=== PATIENT | female | born 1970 | race Caucasian/White ===

== ENCOUNTER 2017-04-01 06:31 | Day surgery (SDC) | payer OTHER ==
[~2017-04-01] VITALS: Ht 172.7 cm; Wt 118.2 kg
[2017-04-01 06:55] VITALS: BP 149/91; PULSE 55; RESP 20; TEMP 98; O2SAT 99
[2017-04-01] MEDS ORDERED: CYCL1TAB29 PO (07:14)
[2017-04-01] MEDS ORDERED: HYDR-3288 PO (07:14)
[2017-04-01] MEDS ORDERED: LIDOCAINE 1%/EPINEPHrine 1:100,000 SOLN 20 ML VIAL ONE (07:52)
[2017-04-01] MEDS ORDERED: SODIUM BICARBONATE 8.4% INJ 50 ML ONE (07:53)
[2017-04-01] MEDS ORDERED: MIDAZOLAM HCL 5 MG/5 ML VIAL ONE (07:58)
[2017-04-01] MEDS ORDERED: fentaNYL CITRATE 250 MCG/5 ML AMP ONE (07:58)
[2017-04-01 09:10] VITALS: BP 101/61; PULSE 59; RESP 20; TEMP 97.6; O2SAT 99
[2017-04-01 09:25] VITALS: BP 109/65; PULSE 64; RESP 16; O2SAT 99
[2017-04-01] MEDS ORDERED: oxyCODONE/ACETAMINOPHEN 5 MG/325 MG TAB PO PRN (09:30)
[2017-04-01 09:45] VITALS: BP 129/78; PULSE 60; RESP 16; O2SAT 99
[2017-04-01 10:15] VITALS: BP 129/75; PULSE 68; RESP 16; O2SAT 99
[2017-04-01 11:00] VITALS: BP 110/59; PULSE 68
--- NOTE | 2017-04-01 16:31 | RADRPT ---
EXAM DATE/TIME: 04/01/2017 08:20 [facility] COMPARISON: No previous studies available for comparison. INDICATIONS : Pelvic mass. SEDATION TIME: 30 minutes BIOPSY SITE: pelvis MEDICATION(S): 1.) 2 mg midazolam (Versed) IV 2.) 100 mcg fentanyl (Sublimaze) IV DEVICE(S): 1.) 18 gauge Lu blunt needle 10cm 2.) 20 gauge Temno core biopsy needle 20cm MEDICAL HISTORY : Endometriosis SURGICAL HISTORY : Cholecystectomy Hysterectomy. ENCOUNTER: Initial ACUITY: 1 day PAIN SCORE: 0/10 LOCATION: pelvis A total of four core specimen(s) were obtained and sent to the laboratory for pathologic evaluation. PROCEDURE: 1. CT guided pelvic biopsy. 2. Conscious sedation with continuous EKG and oximetry monitoring. Prior to the procedure informed consent was obtained. Any appropriate prior imaging studies were rev iewed. Using automated exposure control and adjustment of the mA and/or kV according to patient size, radiat ion dose was kept as low as reasonably achievable to obtain optimal diagnostic quality images. The site was prepped in a sterile fashion. Full sterile technique was used, including cap, mask, yefri rile gloves and gown and a large sterile sheet. Hand hygiene and 2% chlorhexidine and/or betadine/al cohol prep was utilized per protocol for cutaneous antisepsis. The skin and subcutaneous tissues wer e infiltrated with local anesthetic solution. With CT guidance the pelvic mass was targeted and localized. Biopsy was performed using the prescribe d needle as above. Also approximately 100 cc of yellow fluid aspirated. Adequate hemostasis was obtai rajan with compression at the puncture site. Follow-up CT scan reveals no hemorrhage. The patient tolerated the procedure well and there were no complications. The patient was returned to the Radiology Outpatient Unit in stable condition. CONCLUSION: Uncomplicated CT guided biopsy and aspiration of cystic and solid pelvic mass. Alfred Alcantara MD on April 01, 2017 at 16:27 Board Certified Radiologist. This report was verified electronically.
== END 2017-04-01 11:30 | disposition home or self-care (01) ==
LOC: HRAD 06:31 → HRIP 06:31 → HRAD 11:30
PROVIDERS: ATTEND Obstetrics & Gynecology Gynecologic Oncology
DX: R19.00 Intra-abdominal and pelvic swelling, mass and lump, unspecified site (principal); N80.9 Endometriosis, unspecified; Z90.710 Acquired absence of both cervix and uterus
CPT/HCPCS: 49180; 77012; 88307; 99152; 99153; J2250; J3010; 88112; 88305

== ENCOUNTER 2017-04-23 06:02 | Day surgery (SDC) | payer OTHER ==
[~2017-04-23] VITALS: Ht 172.7 cm; Wt 119.5 kg
[~2017-04-23 06:02] MED LIST: CYCL1TAB29 PO; HYDR-3288 PO
[2017-04-23 06:40] VITALS: BP 154/85; PULSE 66; RESP 20; TEMP 98.3; O2SAT 97
[2017-04-23] MEDS ORDERED: CHLORHEXIDINE GLUCONATE 2 % 1 PACK (2 CLOTHS) TOPICAL SCH (07:00)
[2017-04-23] MEDS ORDERED: SODIUM CHLORIDE 0.9% 1000 ML IV SCH (07:00)
[2017-04-23] MEDS ORDERED: VANCOMYCIN 1000 MG/NS 250 ML - implanted port/tunneled catheter IV SCH ×2 (07:00)
[2017-04-23] MEDS ORDERED: POVIDONE IODINE 5% (ANTISEPSIS KIT) 4 APPLICATIONS EACH NARE SCH (07:00)
[2017-04-23] MEDS ORDERED: ceFAZolin 2 GM PREMIX 50 ML - implanted port/tunneled catheter insertion IV SCH (07:00)
[2017-04-23] MEDS ORDERED: fentaNYL CITRATE 250 MCG/5 ML AMP ONE (07:41)
[2017-04-23] MEDS ORDERED: MIDAZOLAM HCL 5 MG/5 ML VIAL ONE (07:41)
[2017-04-23] MEDS ORDERED: LIDOCAINE 1%/EPINEPHrine 1:100,000 SOLN 20 ML VIAL ONE ×2 (08:08→08:09)
--- NOTE | 2017-04-23 08:43 | PD.RAD ---
Post Procedure Progress Note Pre Procedure Diagnosis: (1) Pelvic mass in female Post Procedure Diagnosis: (1) Pelvic mass in female Procedure Date: Apr 23, 2017 Supervising Radiologist: Henok Orozco Proceduralist/Assist: Nacho Ramírez, RT(R), Alexander Powers RT(R)() Estimated blood loss: 5 ml Anesthesia: Conscious Sedation Plan of Activity Patient to Unit: ROPU Patient Condition: Good Additional Comments: patent IJ. Port tip at ACJ. See PACS Report for procedural detail/treatment Henok Orozco MD Apr 23, 2017 08:43
[2017-04-23] MEDS ORDERED: SODIUM CHLORIDE 0.9% FLUSH 10 ML FLUSH IVF PRN (08:45)
[2017-04-23 08:50] VITALS: BP 125/70; PULSE 71; RESP 20; TEMP 98.1; O2SAT 93
[2017-04-23 09:05] VITALS: BP 125/72; PULSE 72; RESP 18; O2SAT 95
[2017-04-23 09:35] VITALS: BP 128/77; PULSE 82; RESP 16; O2SAT 95
--- NOTE | 2017-04-23 09:35 | RADRPT ---
EXAM DATE/TIME: 04/23/2017 08:19 [facility] COMPARISON: No previous studies available for comparison. INDICATIONS : Patient presents with a pelvic mass in need of port placement for chemotherapy treatment. MEDICAL HISTORY : Anxiety Adenocarcinoma pelvic mass SURGICAL HISTORY : Antonette Hysterectomy Gastric bypass ENCOUNTER: Initial ACUITY: 4-6 months PAIN SCORE: 0/10 LOCATION: N/A FLUORO TIME: 0.3 minutes IMAGE SERIES: 0 SEDATION TIME: 30 minutes ACCESS: Right internal jugular vein SEDATION: 1.) 3 mg midazolam (Versed) IV 2.) 250 mcg fentanyl (Sublimaze) IV Prophylactic antibiotics were administered with appropriate pre-procedure timing. Vancomycin within 2 hours of procedure, Ancef (or alternative) within 1 hour of procedure. DEVICE: 1. 8 English single lumen Bard Power Port PROCEDURE : 1. Continuous pulse oximetry and EKG monitoring. 2. Intravenous conscious sedation. 3. Ultrasound guidance for venous access. 4. Fluoroscopic guided implantable central venous port placement. The patient was placed supine. The neck was prepped in sterile fashion. Full sterile technique was u sed, including cap, mask, sterile gloves and gown, and a large sterile sheet. Hand hygiene and 2% ch lorhexidine Betadine was utilized per protocol for cutaneous antisepsis with appropriate dry time for site. The skin and subcutaneous tissues were infiltrated with local anesthetic solution. Under direct ultrasound guidance, central venous access was accomplished in the targeted vessel. The ultrasound images depicting access guidance were stored and saved to PACS for permanent record. A s ubcutaneous pocket was created using blunt dissection. The port was introduced to the pocket. The c atheter tubing was fed through a subcutaneous tunnel to the venotomy site. The catheter tubing was c ut to a suitable length and then was introduced through a valved Peel-Away sheath and positioned with catheter tubing tip at the cavo-atrial junction level. The pocket incision was closed with subcutic ular Vicryl suture. Steri-Strips were applied. The port was flushed and locked with heparin solutio n per protocol. Sterile dressing was applied to the site. The patient tolerated the procedure well. Conscious sedation was performed with the prescribed dosages and duration as above in the presence of an independent trained radiology nurse to assist in the monitoring of the patient. EKG and oximetry remained stable throughout the procedure. The patient tolerated the procedure well and there were no complications. The patient was sent to post anesthesia recovery in stable condition. CONCLUSION: Uncomplicated ultrasound and fluoroscopic guided implanted central venous port catheter placement as described in detail above. An 8 English Power port was placed. Henok Orozco MD on April 23, 2017 at 9:32 Board Certified Radiologist. This report was verified electronically.
[2017-04-23 10:05] VITALS: BP 136/85; PULSE 83; RESP 16; O2SAT 94
[2017-04-23 10:35] VITALS: BP 130/67; PULSE 63; RESP 16; O2SAT 93
== END 2017-04-23 10:50 | disposition home or self-care (01) ==
LOC: HROP 06:02 → HRIP 06:02 → HROP 10:50
PROVIDERS: ATTEND Obstetrics & Gynecology Gynecologic Oncology
DX: C76.3 Malignant neoplasm of pelvis (principal); F41.9 Anxiety disorder, unspecified; Z90.710 Acquired absence of both cervix and uterus
CPT/HCPCS: 36561; 76937; 76942; 77001; 99152; 99153; C1788; J0690; J1642; J2250; J3010; J3370; J7030; J7050

== ENCOUNTER 2017-08-09 05:19 | Inpatient (IN) | payer OTHER ==
[2017-08-09] MEDS ORDERED: CHLORHEXIDINE GLUCONATE 2 % 1 PACK (2 CLOTHS) TOPICAL PRN (05:45)
[2017-08-09] MEDS ORDERED: SODIUM CHLORID 0.9% 500 ML IV PRN (05:45)
[2017-08-09] MEDS ORDERED: POVIDONE IODINE 5% (ANTISEPSIS KIT) 4 APPLICATIONS EACH NARE PRN (05:45)
[2017-08-09] MEDS ORDERED: ceFAZolin 2 GM PREMIX 50 ML IV SCH (05:45)
[2017-08-09] MEDS ORDERED: METOPROLOL TARTRATE 25 MG TAB PO PRN (05:45)
[2017-08-09] MEDS ORDERED: INSULIN HUMAN REGULAR 1,000 UNITS/10 ML VIAL SQ PRN (05:45)
[2017-08-09] MEDS ORDERED: HEPARIN SODIUM - SQ 10,000 UNITS/ML VIAL SQ SCH (05:45)
[2017-08-09] MEDS ORDERED: LACTATED RINGER'S 1000 ML IV PRN (05:45)
[2017-08-09] MEDS ORDERED: SODIUM CHLORIDE 0.9% FLUSH 10 ML FLUSH IV FLUSH PRN ×3 (06:45→12:30)
[2017-08-09 07:14] LABS: BETA HCG QUANT 4 MIU/ML (0-5)
[2017-08-09] MEDS ORDERED: GELFOAM SIZE 100 ONE (07:14)
[2017-08-09] MEDS ORDERED: THROMBIN (TOPICAL) 5,000 UNIT VIAL ONE (07:14)
[2017-08-09] MEDS ORDERED: ACETAMINOPHEN 1000 MG/100 ML 100 ML IV ONE (07:16)
[2017-08-09] MEDS ORDERED: SUGAMMADEX SODIUM 200 MG/2 ML VIAL IV PUSH ONE ×2 (07:17)
[2017-08-09] MEDS ORDERED: ceFAZolin INJ 1,000 MG VIAL IV ONE ×2 (10:40→12:00)
--- NOTE | 2017-08-09 11:11 | PD.OP ---
Operative Report Date of Surgery: Aug 09, 2017 Preoperative Diagnosis: Pelvic mass with transected right ureter Postoperative Diagnosis: Same Procedure: Repair and reanastomosis of right ureter with placement of double-J stent Anesthesia: CODY Surgeon: Alex Mcelroy Field Service Analyst(s): Drs. Damian follower Resident Surgeon: Dr. Villarreal and Dr. Hardin Operation and Findings: Patient was open on the operating table and the segments of the right ureter were identified. The lower one third of the ureter was transected after resection of a pelvic mass which was adherent to the right ureter. Urology was called to perform a reanastomosis of the transected right ureter with stent insertion. The proximal and of the ureter that was cut was identified with a small clip as well as the lower end of the transected ureter was also identified with a small clip. Both ends of the ureter, both proximal and distal were spatulated and then a 4-0 Vicryl suture was used to close in a running fashion the proximal and distal ends. A 6 Azeri 22 cm stent was initially placed using a 0.35 sensor wire. Once the stent was in good position the spatulated ends were brought together and oversewn with a running 4-0 Vicryl suture. The colonic mesentery was in the used to cover the area of the anastomosis. She tolerated the procedure well and there were no complications. The stent will need to remain in for 6 weeks and at that time she'll be taken to the operating room to perform a stent pull with a retrograde study. She tolerated the procedure well. Alex Mcelroy DO Aug 09, 2017 11:11
[2017-08-09] MEDS ORDERED: MORPHINE SULFATE 4 MG/ML INJ IV ONE (12:00)
[2017-08-09] MEDS ORDERED: GLYCOPYRROLATE 0.2 MG/ML VIAL IV ONE (12:00)
[2017-08-09] MEDS ORDERED: VECURONIUM BROMIDE 20 MG VIAL IV ONE (12:00)
[2017-08-09] MEDS ORDERED: NEOSTIGMINE 3 MG/3 ML SYR IV ONE (12:00)
[2017-08-09] MEDS ORDERED: MIDAZOLAM HCL 2 MG/2 ML VIAL IV ONE (12:00)
[2017-08-09] MEDS ORDERED: ePHEDrine/NS 25 MG/5 ML SYR IV ONE (12:00)
[2017-08-09] MEDS ORDERED: ROCURONIUM INJ 50 MG/5 ML SYRINGE IV PUSH ONE (12:00)
[2017-08-09] MEDS ORDERED: PROPOFOL 200 MG/20 ML AMP IV ONE (12:00)
[2017-08-09] MEDS ORDERED: DEXAMETHASONE SOD PHOS 4 MG/ML VIAL IV ONE (12:00)
[2017-08-09] MEDS ORDERED: ONDANSETRON HCL 4 MG/2 ML VIAL IV PUSH ONE (12:00)
[2017-08-09] MEDS ORDERED: LIDOCAINE HCL 1% PF 5 ML AMPULE OTHER ONE (12:00)
[2017-08-09] MEDS ORDERED: PHENYLEPH/NS 1000 MCG/10 ML SYR IV ONE (12:00)
[2017-08-09] MEDS ORDERED: oxyCODONE/ACETAMINOPHEN 5 MG/325 MG TAB PO PRN ×2 (12:30)
[2017-08-09] MEDS ORDERED: ONDANSETRON HCL 4 MG/2 ML VIAL IVP PRN (12:30)
[2017-08-09] MEDS ORDERED: diphenhydrAMINE HCL 25 MG CAP PO PRN (12:30)
[2017-08-09] MEDS ORDERED: NALOXONE HCL 0.4 MG/ML AMP IV PUSH PRN (12:30)
[2017-08-09] MEDS ORDERED: LORazepam 0.5 MG TAB PO PRN (12:30)
[2017-08-09] MEDS ORDERED: DO NOT ADM ANY ANTICOAGULANT DRUGS PRN (12:58)
[2017-08-09] MEDS ORDERED: *ONDANSETRON 4 MG VIAL PERIprocedural Use ONLY ONE (13:11)
[2017-08-09] MEDS: D5-1/2 NS + KCL 20 MEQ INJ 1,000 ML IV SCH ×2 (13:20→22:40)
[2017-08-09] MEDS ORDERED: *morphine SULFATE 8 MG/ML PERIprocedure ONLY ONE (13:55)
[2017-08-09 14:11] LABS: HEMATOCRIT 34.6 % (35.0-46.0); MEAN CELL VOLUME 97.8 FL (80.0-100.0); MEAN CORPUSCULAR HEMOGLOBIN 32.2 PG (27.0-34.0); PLATELET COUNT 212 TH/MM3 (150-450); RED BLOOD COUNT 3.54 MIL/MM3 (4.00-5.30); RED CELL DISTRIBUTION WIDTH 15.8 % (11.6-17.2); REVIEW FLAG FINAL; WHITE BLOOD COUNT 13.8 TH/MM3 (4.0-11.0)
[2017-08-09 14:28] LABS: BICARBONATE 24.2 MEQ/L (21.0-32.0); POTASSIUM 3.5 MEQ/L (3.5-5.1)
[2017-08-09] MEDS: MORPHINE SULFATE 30 MG/30 ML PCA IV SCH (14:46)
[2017-08-09] MEDS: KETOROLAC TROMETHAMINE 30 MG/ML (IVP) VIAL IVP SCH ×2 (14:59→20:50)
[2017-08-09 16:00] VITALS: BP 119/73; PULSE 73; RESP 21; TEMP 97.1; O2SAT 97
--- NOTE | 2017-08-09 18:30 | RADRPT ---
EXAM DATE/TIME: 08/09/2017 18:08 [facility] COMPARISON: No previous studies available for comparison. INDICATIONS : Right ureteral stent placement. MEDICAL HISTORY : Endometriosis. SURGICAL HISTORY : Cholecystectomy. Hysterectomy. ENCOUNTER: Initial ACUITY: 1 day PAIN SCORE: 5/10 LOCATION: Bilateral abdomen FINDINGS: Supine view of the abdomen was performed. The abdominal bowel gas pattern is normal. No abnormal ma sses, calcifications, or organomegaly is seen. There is some sacralization of the L5 vertebral body w ith a pseudoarticulation of the transverse processes on the left with the adjacent sacrum. Double-J stent on the right. The distal coil is partially unwound which could represent positioning i n the UVJ. There is a second Zarephath loop catheter in the same general vicinity which may have been abbr eviated and possibly within the patient.. CONCLUSION: 1. Right sided double-J stent. The distal loop is partially uncoiled which may represent positioning in the UVJ. 2. There is a second Zarephath loop catheter which may be excised and left within the pelvis. I have no pr iors for comparison to determine the exact location. 3. Nonobstructive bowel gas pattern. Herminio Trejo MD on August 09, 2017 at 18:26 Board Certified Radiologist. This report was verified electronically.
[2017-08-09 20:00] VITALS: BP 118/60; PULSE 73; RESP 18; TEMP 97; O2SAT 96
[2017-08-09] MEDS: SODIUM CHLORIDE 0.9% FLUSH 10 ML FLUSH IV FLUSH SCH (20:50)
[2017-08-09] MEDS ORDERED: SODIUM CHLORIDE 0.9% FLUSH 10 ML FLUSH IV FLUSH SCH (21:00)
[2017-08-09] MEDS: PCA - TOTAL MG MORPHINE DELIVERED PER SHIFT SCH (22:38)
[2017-08-10] VITALS: BP 120/67; PULSE 73; RESP 17; TEMP 97.5; O2SAT 94
[2017-08-10] MEDS: KETOROLAC TROMETHAMINE 30 MG/ML (IVP) VIAL IVP SCH ×4 (03:11→20:42)
[2017-08-10] MEDS: MORPHINE SULFATE 30 MG/30 ML PCA IV SCH (03:51)
[2017-08-10 04:00] VITALS: BP 112/59; PULSE 77; RESP 18; TEMP 98.5; O2SAT 92
[2017-08-10] MEDS: PCA - TOTAL MG MORPHINE DELIVERED PER SHIFT SCH ×3 (05:54→22:15)
[2017-08-10 06:11] LABS: HEMO FLAGS DIFF FINAL; MEAN CELL VOLUME 97.3 FL (80.0-100.0); PLATELET COUNT 196 TH/MM3 (150-450); RED BLOOD COUNT 3.09 MIL/MM3 (4.00-5.30); RED CELL DISTRIBUTION WIDTH 15.9 % (11.6-17.2); WHITE BLOOD COUNT 13.1 TH/MM3 (4.0-11.0)
[2017-08-10 06:12] LABS: AUTOMATED NEUTROPHIL # 10.3 TH/MM3 (1.8-7.7); BASOPHIL % 0.2 % (0.0-2.0); LYMPH % 11.4 % (9.0-44.0); LYMPHOCYTE # 1.5 TH/MM3 (1.0-4.8); MONO % 9.6 % (0.0-8.0); NEUT % 78.8 % (16.0-70.0)
[2017-08-10] MEDS: D5-1/2 NS + KCL 20 MEQ INJ 1,000 ML IV SCH ×2 (06:23→17:03)
[2017-08-10 06:41] LABS: BICARBONATE 26.7 MEQ/L (21.0-32.0); POTASSIUM 3.9 MEQ/L (3.5-5.1)
[2017-08-10 06:59] LABS: CALCIUM-PROTEIN CORRECTED 8.3 MG/DL (8.5-10.1)
[2017-08-10 08:00] VITALS: BP 116/57; PULSE 94; RESP 16; TEMP 98.2; O2SAT 93
--- NOTE | 2017-08-10 08:17 | HHI.PR ---
Subjective Patient symptoms today Pt seen and examined. Urine clear. No complaints. Objective Vital Signs Vital Signs Date Time Temp Pulse Resp B/P (MAP) Pulse Ox O2 Delivery O2 Flow Rate FiO2 08/10/17 05:54 4 08/10/17 04:00 98.5 77 18 112/59 (76) 92 08/10/17 03:51 18 08/10/17 00:00 97.5 73 17 120/67 (84) 94 08/09/17 22:38 17 08/09/17 20:00 97.0 73 18 118/60 (79) 96 08/09/17 16:00 97.1 73 21 119/73 (88) 97 08/09/17 14:46 16 08/09/17 14:45 97.9 68 17 108/53 (71) 98 Room Air 08/09/17 14:30 67 17 108/58 (75) 97 Room Air 08/09/17 14:15 65 15 89/51 (64) 95 Room Air 08/09/17 14:00 60 14 82/46 (58) 96 Room Air 08/09/17 13:45 60 18 108/57 (74) 99 Nasal Cannula 1 08/09/17 13:30 62 15 108/62 (77) 95 Nasal Cannula 3 08/09/17 13:15 70 15 106/61 (76) 96 Nasal Cannula 3 08/09/17 12:59 97.8 69 15 99/55 (70) 96 Nasal Cannula 3 Intake & Output 08/10/17 08/10/17 07:00 19:00 Output Total 600 ml Balance -600 ml Output Urine Total 600 ml Result Diagram: 08/10/1754408/10/17544 Objective Remarks Abd:soft,nt,nd Ramos with clear urine. Medications and IVs Current Medications Medications (Trade) Dose Ordered Sig/Joan Route Start Time Stop Time Status Last Admin Cefazolin Sodium/ Dextrose 50 ml @ 100 mls/hr SPECIAL EDUCATION CASE MANAGER IV 08/09/17 05:45 08/12/17 05:44 08/09/17 06:42 (Lopressor) 25 mg SPECIAL EDUCATION CASE MANAGER PRN PO 08/09/17 05:45 08/12/17 05:44 (Betadine 5% Antisepsis Kit) 1 applic SPECIAL EDUCATION CASE MANAGER PRN EACH NARE 08/09/17 05:45 08/12/17 05:44 08/09/17 06:25 (Chlorhexidine 2% Cloth) 3 pack SPECIAL EDUCATION CASE MANAGER PRN TOPICAL 08/09/17 05:45 08/12/17 05:44 08/09/17 06:10 (NovoLIN R INJ) See Protocol Table ... SPECIAL EDUCATION CASE MANAGER PRN SQ 08/09/17 05:45 08/12/17 05:44 (NS Flush) 5 ml UNSCH PRN IV FLUSH 08/09/17 06:45 (Heparin Central Flush) 250 units UNSCH PRN IV FLUSH 08/09/17 06:45 (Heparin Central Flush) 500 units UNSCH IV FLUSH 08/09/17 06:45 (Flexeril) 10 mg DAILY PO 08/10/17 09:00 Potassium Chloride/Dextrose/ Sod Cl 1,000 ml @ 75 mls/hr [id number] IV 08/09/17 12:19 08/10/17 06:23 (Toradol Inj) 30 mg Q6H IVP 08/09/17 15:00 08/12/17 09:01 08/10/17 03:11 (Percocet 5-325 Mg) 1 tab Q4H PRN PO 08/09/17 12:30 (Percocet 5-325 Mg) 2 tab Q4H PRN PO 08/09/17 12:30 (Benadryl) 25 mg Q6H PRN PO 08/09/17 12:30 (Zofran Inj) 4 mg Q6H PRN IVP 08/09/17 12:30 08/09/17 20:49 (Ativan) 0.5 mg Q8H PRN PO 08/09/17 12:30 (Narcan Inj) 0.4 mg UNSCH PRN IV PUSH 08/09/17 12:30 (Morphine 1 Mg/ ml MINE WIRER) 30 mg UNSCH IV 08/09/17 12:30 08/10/17 03:51 MINE WIRER Dosage Infused (Pha) 1 Q8HR .XX 08/09/17 14:00 08/10/17 05:54 (NS Flush) 2 ml UNSCH PRN IV FLUSH 08/09/17 12:30 (NS Flush) 2 ml BID IV FLUSH 08/09/17 21:00 08/09/17 20:50 Miscellaneous Information ALL NURSING DEPARTME... UNSCH PRN .XX 08/09/17 12:58 08/10/17 12:57 Assessment and Plan Assessment and Plan Stable s/p Ex-lap with resection of mass with repair of right ureter. Void trial over the next few days. Cysto with right RPG with stent removal in OR in 6 weeks. Alex Mcelroy DO Aug 10, 2017 08:17
--- NOTE | 2017-08-10 11:20 | HHI.PR ---
Subjective Subjective Notes Resting in bed Pain controlled with FISH SALTER Tolerating clear liquids Objective Vitals/I&O Vital Signs Date Time Temp Pulse Resp B/P (MAP) Pulse Ox O2 Delivery O2 Flow Rate FiO2 08/10/17 08:00 98.2 94 16 116/57 (76) 93 08/09/17 14:45 Room Air 08/09/17 13:45 1 Labs Laboratory Tests Test 08/09/17 13:45 08/10/17 05:45 White Blood Count 13.8 13.1 Red Blood Count 3.54 3.09 Hemoglobin 11.4 9.9 Hematocrit 34.6 30.0 Mean Corpuscular Volume 97.8 97.3 Mean Corpuscular Hemoglobin 32.2 32.0 Mean Corpuscular Hemoglobin Concent 33.0 33.0 Red Cell Distribution Width 15.8 15.9 Platelet Count 212 196 Mean Platelet Volume 9.9 9.5 Blood Urea Nitrogen 8 9 Creatinine 0.76 0.98 Random Glucose 199 108 Calcium Level 8.4 7.4 Sodium Level 139 139 Potassium Level 3.5 3.9 Chloride Level 105 107 Carbon Dioxide Level 24.2 26.7 Anion Gap 10 5 Estimat Glomerular Filtration Rate 81 61 Neutrophils (%) (Auto) 78.8 Lymphocytes (%) (Auto) 11.4 Monocytes (%) (Auto) 9.6 Eosinophils (%) (Auto) 0.0 Basophils (%) (Auto) 0.2 Neutrophils # (Auto) 10.3 Lymphocytes # (Auto) 1.5 Monocytes # (Auto) 1.3 Eosinophils # (Auto) 0.0 Basophils # (Auto) 0.0 CBC Comment DIFF FINAL Differential Comment Total Protein 5.5 Protein Corrected Calcium 8.3 Cardiovascular: Regular Lungs: Clear Abdomen: Other (midline incision with c/d/i in place; non distended; minimally tender to palpation ) Extremities: No edema A/P Assessment and Plan 46 year old female POD1 resection of pelvic tumor -Clear liquids -OOB and mobilize as tolerated -FISH SALTER pump for pain -IVF -Will change dressing POD2; if it becomes soiled can change and place new [place] dressing Attending Statement The exam, history, and the medical decision-making described in the above note were completed with the assistance of the mid-level provider. I reviewed and agree with the findings presented. I attest that I had a [id number] encounter with the patient on the same day, and personally performed and documented my assessment and findings in the medical record. Abdominal exam: soft, postoperative pain, drain clear output Tania Yarbrough Aug 10, 2017 11:20 Anuel De Jesus MD Aug 24, 2017 23:52
[2017-08-10] MEDS: CYCLOBENZAPRINE HCL 10 MG TAB PO SCH (11:32)
[2017-08-10] MEDS: SODIUM CHLORIDE 0.9% FLUSH 10 ML FLUSH IV FLUSH SCH ×2 (11:33→20:42)
[2017-08-10 12:00] VITALS: BP 106/52; PULSE 81; RESP 15; TEMP 97.5; O2SAT 95
[2017-08-10 16:00] VITALS: BP 102/58; PULSE 81; RESP 18; TEMP 98.5; O2SAT 96
[2017-08-10 20:00] VITALS: BP 98/56; PULSE 82; RESP 17; TEMP 99.6; O2SAT 94
--- NOTE | 2017-08-10 21:51 | MP ---
cc: BAUTISTA WALKER MD DATE OF SURGERY 08/09/17 PREOPERATIVE DIAGNOSIS 1. Pelvic mass adenocarcinoma. 2. Status post supracervical hysterectomy and bilateral salpingo-oophorectomy. POSTOPERATIVE DIAGNOSIS 1. Pelvic mass adenocarcinoma. 2. Status post supracervical hysterectomy and bilateral salpingo-oophorectomy. PROCEDURE 1. Exploratory laparotomy 2. Resection of pelvic mass 3. Omentectomy 4. Lysis of adhesions. 5. Ureterolysis and repair of right ureter over double-J stent ANESTHESIA General [facility] Dr. Bautista Hardin INTRAOPERATIVE CONSULTATION Dr. Mcelroy urology for ureteral repair and stent portion of the procedure. FINDINGS Large pelvic mass consistent with imaging densely adhered to right ureter, distal ileum and the sigmoid colon although not directly invading grossly. INDICATIONS FOR PROCEDURE The patient is a 46-year-old female with a history of supracervical hysterectomy and bilateral salpingo-oophorectomy out of a different state several years ago. The patient was diagnosed with a pelvic adenocarcinoma and was under treatment by Dr. Ngozi Hardin. The colonoscopy showed no GI source. This was thought to be essentially due to remnant cervical tissue or possible remnant ovarian tissue. The patient was seen by myself and Dr. Hardin and underwent discussion about surgical resection. Risks, benefits, alternatives were discussed with the patient by myself and she agreed to undergo the procedure. PROCEDURE IN DETAIL Informed consent was obtained. The patient was taken to the operating room and placed in supine position, placed under general endotracheal anesthesia. The patient was placed in lithotomy position. Once the patient had been opened and retraction placed and exposure gained (please see Dr. Hardin' note for further details for the HALF SOLE FITTER portion of the procedure) I entered the room. I was able to evaluate the large pelvic mass which was densely adhered to the retroperitoneum as well in a small portion of the sigmoid colon and terminal ileum. Myself and Dr. Hardin did resect the mass and, during this time, prior and after we performed extensive lysis of inflammatory adhesions from the sigmoid colon and distal ileum. The distal ileum was totally freed from the mass in the pelvis and one very small serosal tear was oversewn with lembert #3-0 silk sutures. The bowel is otherwise healthy, viable and intact. We also divided tissue from the sigmoid colon to the inferior part of the mass. This was done meticulously and there was no violation of the colonic mucosa or serosa at this time, but mainly from the epiploic areas of the colon. The mass was removed and marked and sent for frozen section. We did identify that the mid ureter on the right had been divided and Dr. Rivas, urology came into the room and repaired this. Please see his dictated separate procedure note. Once we had completed this, we did again further evaluate the abdomen, performed omentectomy and then also insufflated the rectum with air confirming there was no leak or injury to the sigmoid colon or rectum. At this point in time, we turned our attention towards closure. Please see Dr. Hardin' note again for further details on resection of pelvic mass and closure. The patient tolerated the procedure well. No apparent complication. I was present and scrubbed for the above procedures. MD MALKA Sanders/ /11:21 AM /9:25 PM MTDNancy
[2017-08-11] VITALS: BP 105/55; PULSE 80; RESP 17; TEMP 98.9; O2SAT 94
[2017-08-11] MEDS: KETOROLAC TROMETHAMINE 30 MG/ML (IVP) VIAL IVP SCH ×4 (03:32→20:36)
[2017-08-11 04:00] VITALS: BP 93/50; PULSE 84; RESP 17; TEMP 99.8; O2SAT 90
[2017-08-11] MEDS: MORPHINE SULFATE 30 MG/30 ML PCA IV SCH (04:53)
[2017-08-11 05:38] LABS: HEMATOCRIT 26.7 % (35.0-46.0); MEAN CELL VOLUME 97.4 FL (80.0-100.0); MEAN CORPUSCULAR HEMOGLOBIN 32.7 PG (27.0-34.0); MEAN CORPUSCULAR HGB CONC 33.6 % (32.0-36.0); PLATELET COUNT 160 TH/MM3 (150-450); RED BLOOD COUNT 2.74 MIL/MM3 (4.00-5.30); RED CELL DISTRIBUTION WIDTH 15.5 % (11.6-17.2); REVIEW FLAG FINAL; WHITE BLOOD COUNT 9.3 TH/MM3 (4.0-11.0)
[2017-08-11 05:51] LABS: BICARBONATE 28.5 MEQ/L (21.0-32.0); MAGNESIUM 1.6 MG/DL (1.5-2.5)
[2017-08-11] MEDS: PCA - TOTAL MG MORPHINE DELIVERED PER SHIFT SCH (06:02)
[2017-08-11] MEDS: D5-1/2 NS + KCL 20 MEQ INJ 1,000 ML IV SCH (06:02)
[2017-08-11 08:00] VITALS: BP 86/55; PULSE 85; RESP 16; TEMP 96.2; O2SAT 98
--- NOTE | 2017-08-11 08:10 | PD.ONC.PN ---
Subjective Subjective Remarks POD # 2 pt is resting in bed states that drain is causing her the most discomfort..burning sensation Denies any n/v reg diet today carter has been D/Cd will KVO IVF and D/C DECK LID FITTER change Percocet to Lortab OOB to chair and ambulate today with assistance Objective Data Date Time Temp Pulse Resp B/P (MAP) Pulse Ox O2 Delivery O2 Flow Rate FiO2 08/11/17 06:02 18 08/11/17 04:53 18 08/11/17 04:00 99.8 84 17 93/50 (64) 90 08/11/17 00:00 98.9 80 17 105/55 (72) 94 08/10/17 22:15 18 08/10/17 20:00 99.6 82 17 98/56 (70) 94 08/10/17 16:00 98.5 81 18 102/58 (73) 96 08/10/17 14:00 17 08/10/17 12:00 97.5 81 15 106/52 (70) 95 08/11/17 08/11/17 08/11/17 07:00 15:00 23:00 Intake Total 200 ml Output Total 1030 ml Balance -830 ml Result Diagram: 08/11/17 0500 08/11/17 0500 Laboratory Results Laboratory Tests Test 08/11/17 05:00 White Blood Count 9.3 TH/MM3 Red Blood Count 2.74 MIL/MM3 Hemoglobin 9.0 GM/DL Hematocrit 26.7 % Mean Corpuscular Volume 97.4 FL Mean Corpuscular Hemoglobin 32.7 PG Mean Corpuscular Hemoglobin Concent 33.6 % Red Cell Distribution Width 15.5 % Platelet Count 160 TH/MM3 Mean Platelet Volume 9.5 FL Blood Urea Nitrogen 9 MG/DL Creatinine 0.92 MG/DL Random Glucose 94 MG/DL Calcium Level 7.6 MG/DL Phosphorus Level 2.3 MG/DL Magnesium Level 1.6 MG/DL Sodium Level 140 MEQ/L Potassium Level 4.0 MEQ/L Chloride Level 107 MEQ/L Carbon Dioxide Level 28.5 MEQ/L Anion Gap 5 MEQ/L Estimat Glomerular Filtration Rate 65 ML/MIN Administered Medications Medications (Trade) Dose Ordered Sig/Joan Route PRN Reason Start Time Stop Time Status Last Admin Dose Admin Cefazolin Sodium/ Dextrose 50 ml @ 100 mls/hr SERVICE VEHICLE OPERATOR IV 08/09/17 05:45 08/12/17 05:44 08/09/17 06:42 Povidone Iodine (Betadine 5% Antisepsis Kit) 1 applic SERVICE VEHICLE OPERATOR PRN EACH NARE SEE LABEL COMMENTS 08/09/17 05:45 08/12/17 05:44 08/09/17 06:25 Chlorhexidine Gluconate (Chlorhexidine 2% Cloth) 3 pack SERVICE VEHICLE OPERATOR PRN TOPICAL SEE LABEL COMMENTS 08/09/17 05:45 08/12/17 05:44 08/09/17 06:10 Cyclobenzaprine HCl (Flexeril) 10 mg DAILY PO 08/10/17 09:00 08/10/17 11:32 Potassium Chloride/Dextrose/ Sod Cl 1,000 ml @ 75 mls/hr [id number] IV 08/09/17 12:19 08/11/17 06:02 Ketorolac Tromethamine (Toradol Inj) 30 mg Q6H IVP 08/09/17 15:00 08/12/17 09:01 08/11/17 03:32 Ondansetron HCl (Zofran Inj) 4 mg Q6H PRN IVP NAUSEA OR VOMITING 08/09/17 12:30 08/09/17 20:49 Morphine Sulfate (Morphine 1 Mg/ ml DECK LID FITTER) 30 mg UNSCH IV 08/09/17 12:30 08/11/17 04:53 DECK LID FITTER Dosage Infused (Pha) 1 Q8HR .XX 08/09/17 14:00 08/11/17 06:02 Sodium Chloride (NS Flush) 2 ml BID IV FLUSH 08/09/17 21:00 08/10/17 20:42 Objective Remarks GENERAL: Well-nourished, well-developed patient. SKIN: Warm and dry. HEAD: Normocephalic. EYES: No scleral icterus. No injection or drainage. CARDIOVASCULAR: Regular rate and rhythm without murmurs. RESPIRATORY: Breath sounds equal bilaterally. No accessory muscle use. GASTROINTESTINAL: dressing c/d/i, GUS drain with SS drainage to R abd EXTREMITIES: TEDs and SCDs MUSCULOSKELETAL: Adequate muscle tone. NEUROLOGICAL: No obvious focal deficit. Awake, alert, and oriented x3. PSYCHIATRIC: Appropriate mood and affect; insight and judgment normal. Assessment/Plan Problem List: (1) Pelvic mass in female ICD Codes: R19.00 - Intra-abdominal and pelvic swelling, mass and lump, unspecified site Status: Resolved Plan: S/P X Lap for resection of pelvic mass and repair of ureter (2) Post-operative state ICD Codes: Z98.890 - Other specified postprocedural states Status: Acute Plan: POD #2 D/C DECK LID FITTER and change to oral Lortab 7.5/325mg KVO IVF OOB to chair and ambulate today with assistance IS at bedside Carter D/Cd regular diet Attending Statement discussed plan of care with Dr. Hardin and he is in agreement. Wong Treadwell Aug 11, 2017 08:10
--- NOTE | 2017-08-11 08:39 | MP ---
cc: NELSON GREGG,BAUTISTA ROSARIO,GARY MCELROY,MACARIO BOLIVAR DATE OF SURGERY: 08/09/2017 PREOPERATIVE DIAGNOSIS 1. Large central pelvic mass. 2. Adenocarcinoma of uncertain origin. 3. Status post supracervical hysterectomy and bilateral salpingo-oophorectomy for endometriosis. POSTOPERATIVE DIAGNOSIS 1. Large central pelvic mass. 2. Adenocarcinoma of uncertain origin. 3. Status post supracervical hysterectomy and bilateral salpingo-oophorectomy for endometriosis. 4. Extensive pelvic adhesions. 5. 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 PROCEDURE 1. Exploratory laparotomy. 2. Resection of pelvic mass (right salpingo-oophorectomy). 3. Extensive lysis of adhesions. 4. Mobilization of the bowel. SURGEON Dr. Gary Rosario. CO-SURGEON Dr. Bautista De Jesus. INTRAOPERATIVE CONSULTING SURGEON Dr. Alex Mcelroy, urology, for end-to-end right ureteral anastomosis. ESTIMATED BLOOD LOSS 800 cc. IV FLUIDS 2800 cc. URINE OUTPUT 300 cc. HISTORY A 46-year-old female found on exam and imaging to have a large fixed central pelvic mass. By history she has had a previous supracervical hysterectomy and had her tubes and ovaries removed for endometriosis with a history of dense adhesions affiliated with endometriosis. Biopsy showed adenocarcinoma with features suggestive of an endometrioid adenocarcinoma. CA-125 was elevated at 1600. She was treated with neoadjuvant chemotherapy and the CA-125 initially responded to 900, however, the CA-125 began to again elevate while on chemotherapy. The decision was made to move forward with surgical exploration. She saw Dr. Bautista De Jesus preoperatively as the plan was to work together under surgical management. She underwent GI evaluation and reportedly had a normal colonoscopy last week. She is seen again in the pre-op holding area, findings are reviewed. The anticipated surgery was discussed. Questions were answered. She expressed good understanding and agreed to move forward with surgery. FINDINGS Upon entry in the peritoneal cavity the omentum was stuck to the anterior abdominal wall and stuck to the central pelvic mass. The mass had a relatively smooth wall on its surface, had some ventral mobility but was extremely fixed posteriorly and laterally. The colon, loops of small bowel and the ileocecum were densely adherent to the mass. The ureter was essentially encased by the mass, densely adherent on the posterolateral aspect along the right side. The left ureter was isolated and able to be dissected free from the mass on the left side. The mass was an estimated 14-16 cm in the pelvis; it was fixed in place. The cervix was in situ and only after complete dissection of the mass could it be confirmed that the mass was actually separate from the cervix, did not appear to be arising from or involving the cervical remnant. Frozen section analysis of the margin of the mass that was in close proximity to the cervix showed fibrous tissue, no evidence of malignancy. The cervix itself was visibly and palpably normal. The omentum grossly appeared normal other than the adhesions. The liver and diaphragm edges were smooth. The spleen, pancreas and kidneys were palpably normal. There was no appreciable retroperitoneal, pelvic or paraaortic adenopathy. There were no peritoneal implants. At the conclusion of the case essentially all grossly visible tumor had been resected as all grossly visible tumor was confined to this pelvic mass, and this pelvic mass anatomically seems most consistent with a right ovarian mass arising from an ovarian remnant that had undergone malignant transformation. MODIFIER/STATEMENT OF COMPLEXITY In addition to the co-surgeon modifier the complexity of this case was significantly increased due to dense circumferential adhesions around the lateral and distal portion of this mass. An extensive amount of time was spent lysing adhesions to restore normal anatomy, accomplish surgical objectives and remove this mass. Furthermore, body habitus with a weight of 122 kg contributed further to the complexity and modifier should be applied accordingly. DETAILS OF PROCEDURE She was taken to the operating room and placed in dorsal lithotomy position. After general endotracheal anesthesia was administered a timeout was undertaken. She was identified by Clinical Ink recognition and hospital ID brakianna and the proposed procedure was reviewed and confirmed. She was carefully positioned in lithotomy with arms to the sides. She was positioned and padded appropriately. There were no malalignments or pressure points. She was prepped and draped in sterile fashion. A Ramos catheter was placed in the bladder. A timeout had been undertaken where she was identified by Clinical Ink recognition, hospital ID brakianna and the proposed procedure was reviewed and confirmed. A midline incision was made from the symphysis to the umbilicus, carried down to the level of the fascia. The fascia was entered as the rectus muscles were in the midline and the peritoneal cavity was entered. Sharp dissection was required to take the omentum down from its adhesions to the anterior abdominal wall and to the pelvic mass. Additional adhesions were taken down to preliminary free some loops of bowel from the anterior and lateral abdominal wall. A Bookwalter retractor and lap pads were used to assist in surgical exposure. Dissection was initiated initially laterally and distally circumferentially around the mass, isolating some dense adhesions taken down with sharp dissection with cautery or with Enseal device depending on the vascularity of the attachments. Multiple loops of bowel were densely adherent and were mobilized with sharp dissection to free these adhesions and help mobilize them beyond the operative field and the ileocecal valve was mobilized and included in the packing for the Bookwalter retractor similarly. Similarly, the rectosigmoid was dissected free from the left posterolateral aspect of this mass. Retroperitoneal dissection allowed identification of the ureter and the ureter was dissected free from the mass. The left tube and ovary appeared to be surgically absent. Continued dissection to alleviate the anterior adhesions and mobilize the bladder flap and posteriorly free up the mass to increase its mobilization, coming underneath the mass confirming that it was indeed separate from the cervix. It did not appear to be arising from nor involving the residual cervix. The most dense adhesions were along the right posterolateral aspect and were taken down sharply. Vascular attachments and vascular pedicles were isolated and sealed using the Enseal device and mobilized distally until the entire mass could be removed. Once the mass was removed, the distal segment in the region of the cervix was marked with sutures. Frozen section was asked to be performed on this region to determine if there was any tumor at this margin which would have correlated to the region of the cervical stump, and eventually results came back just showing fibrous tissue but no tumor in this section. The pelvis was thoroughly irrigated. The anatomy was explored. Small bleeders were rendered hemostatic with bipolar cautery or suture ligature. The left ureter was identified along its course in the pelvis with good peristalsis. The large bowel was visually inspected. The wall was intact. There were no obvious defects in the wall of the large bowel. The ileocecal region and remainder of bowel was inspected. There were no enterotomies but there was some superficial serosal defect in a loop of ileum which was oversewn with interrupted 3-0 silk sutures and the integrity of the lumen was confirmed. Further inspection revealed transection of the right ureter and the proximal ureter was isolated. The edges were freshened up with sharp dissection and a clip was placed across the lumen. Similarly, the distal ureter on the right side was identified. It was encased in dense scar tissue that had been plastered against and seemingly encased by the tumor wall. This excess peritoneum and possible residual tumor was sharply dissected free from the ureter. The distal ureter edge was cut to ensure good blood supply which was confirmed and a clip was placed over the distal segment of the ureter, mobilized, and appeared able to be directly reconnected without tension. At this point Dr. Alex Mcelroy of urology was consulted, who performed an end-to-end over stent right ureteral reanastomosis. Please see his OP note for this portion of the case. The pelvis and abdomen were thoroughly irrigated. The anatomy was explored again with findings as described above. There was no residual tumor. To check the integrity of the bowel the pelvis was filled with fluid. A rigid proctosigmoidoscopy was used to insufflate air as the descending colon was occluded. The bowel distended nicely under pressure. There were no air bubbles. There were no visible or detectable leaks within the rectosigmoid colon. The air was removed and the pelvis was drained. At this point it was felt that all reasonable surgical objectives had been completed after the infracolic omentum was removed using the Enseal device in a stepwise fashion. As noted there was no other grossly visible tumor. It was felt that any further dissection may be associated with morbidity that exceeded benefit. A 10-Uk[place] drain was placed in the pelvis, brought out through the right lower abdominal wall and attached to grenade suction that was secured to the abdominal wall with a 2-0 nylon suture. The Bookwalter was disassembled. The lap pads were removed. Careful visual and palpable inspection revealed no remaining foreign objects in the peritoneal cavity. Preliminary counts were correct. Attention was directed toward closing the abdominal wall. Looped 0 PDS was used to close the abdominal wall in a running modified [place] fashion starting at the apices and meeting in the midpoint where the sutures were tied. Care was taken to not compromise the drain on restrict its motion. The subcutaneous case tissue was irrigated. Franklin's fascia was re-approximated with interrupted 2-0 Vicryl suture and then the skin edge was closed with 3-0 Vicryl running subcuticular closure, reinforced with Steri-Strips and dry sterile dressing. She was returned to dorsal supine position. Final counts were correct. There were no remaining foreign objects in the vagina. She was pending reversal of anesthesia when I left the operating room to precede her to the post-anesthesia care unit. MD PAULINE Miller/PANCHO /7:17 AM /7:57 AM
[2017-08-11] MEDS: SODIUM CHLORIDE 0.9% FLUSH 10 ML FLUSH IV FLUSH SCH ×2 (09:00→20:36)
[2017-08-11] MEDS: POTASSIUM PHOSPHATE/SODIUM PHOSPHATE 250 MG TAB PO SCH ×3 (10:57→22:17)
[2017-08-11] MEDS: CYCLOBENZAPRINE HCL 10 MG TAB PO SCH (10:57)
[2017-08-11 12:00] VITALS: BP 107/59; PULSE 100; RESP 18; TEMP 98.9; O2SAT 95
[2017-08-11] MEDS: ACETAMINOPHEN/HYDROcodone 325 MG/7.5 MG TAB PO PRN ×2 (12:15→16:12)
--- NOTE | 2017-08-11 13:04 | HHI.PR ---
Subjective Subjective Notes Resting in bed Tolerated breakfast no issues Got to the side of the bed yesterday Having mild pain at GUS site Objective Vitals/I&O Vital Signs Date Time Temp Pulse Resp B/P (MAP) Pulse Ox O2 Delivery O2 Flow Rate FiO2 08/11/17 12:00 98.9 100 18 107/59 (75) 95 08/09/17 14:45 Room Air 08/09/17 13:45 1 Labs Laboratory Tests Test 08/11/17 05:00 White Blood Count 9.3 Red Blood Count 2.74 Hemoglobin 9.0 Hematocrit 26.7 Mean Corpuscular Volume 97.4 Mean Corpuscular Hemoglobin 32.7 Mean Corpuscular Hemoglobin Concent 33.6 Red Cell Distribution Width 15.5 Platelet Count 160 Mean Platelet Volume 9.5 Blood Urea Nitrogen 9 Creatinine 0.92 Random Glucose 94 Calcium Level 7.6 Phosphorus Level 2.3 Magnesium Level 1.6 Sodium Level 140 Potassium Level 4.0 Chloride Level 107 Carbon Dioxide Level 28.5 Anion Gap 5 Estimat Glomerular Filtration Rate 65 Cardiovascular: Regular Lungs: Clear Abdomen: Other (soft; minimally tender; dressing in place c/d/i; GUS with dark drainage--thin ) Extremities: No edema A/P Assessment and Plan 46 year old female POD2 resection of pelvic tumor -Advanced to regular diet this AM--- encouraged small or frequent meals -OOB and mobilize as tolerated -[employer]AV[employer]GER pump for pain----[place] added -DC IVF Attending Statement The exam, history, and the medical decision-making described in the above note were completed with the assistance of the mid-level provider. I reviewed and agree with the findings presented. I attest that I had a [id number] encounter with the patient on the same day, and personally performed and documented my assessment and findings in the medical record. Abdominal exam: soft, non-tender on exam pain better today, tolerating PO DC home soon Tania Yarbrough Aug 11, 2017 13:04 Anuel De Jesus MD Aug 24, 2017 23:54
[2017-08-11 16:00] VITALS: BP 114/73; PULSE 86; RESP 16; TEMP 98.4; O2SAT 96
[2017-08-11 20:00] VITALS: BP 97/50; PULSE 99; RESP 18; TEMP 98.1; O2SAT 95
[2017-08-12] VITALS: BP 89/56; PULSE 83; RESP 17; TEMP 98; O2SAT 97
[2017-08-12] MEDS: ACETAMINOPHEN/HYDROcodone 325 MG/7.5 MG TAB PO PRN ×4 (02:32→21:28)
[2017-08-12] MEDS: KETOROLAC TROMETHAMINE 30 MG/ML (IVP) VIAL IVP SCH ×2 (02:35→08:15)
[2017-08-12 04:00] VITALS: BP 90/49; PULSE 82; RESP 18; TEMP 98.2; O2SAT 95
[2017-08-12] MEDS: D5-1/2 NS + KCL 20 MEQ INJ 1,000 ML IV SCH (05:05)
[2017-08-12] MEDS: POTASSIUM PHOSPHATE/SODIUM PHOSPHATE 250 MG TAB PO SCH (05:36)
[2017-08-12] MEDS ORDERED: HYDR-3288 PO (07:15)
[2017-08-12 08:00] VITALS: BP 83/45; PULSE 81; RESP 16; TEMP 96.2; O2SAT 99
[2017-08-12] MEDS: CYCLOBENZAPRINE HCL 10 MG TAB PO SCH (08:14)
[2017-08-12] MEDS: SODIUM CHLORIDE 0.9% FLUSH 10 ML FLUSH IV FLUSH SCH ×2 (08:15→21:28)
--- NOTE | 2017-08-12 08:56 | HHI.DS ---
Discharge Summary Admission Date Aug 09, 2017 at 12:22 Discharge Date: Aug 13, 2017 Admitting Diagnosis Pelvic mass (1) Pelvic mass in female ICD Codes: R19.00 - Intra-abdominal and pelvic swelling, mass and lump, unspecified site Status: Resolved Procedures X Lap for resection of pelvic mass and right oophorectomy, repair of ureter. Brief History This is a 46 year old female that is s/p supracervical hysterectomy for endometriosis. She was found to have large central pelvic mass and presented on 08/09/17 for resection of mass. CBC/BMP: 08/11/17 0500 08/11/17 0500 Significant Findings Laboratory Tests Test 08/09/17 13:45 08/10/17 05:45 08/11/17 05:00 White Blood Count 13.8 TH/MM3 (4.0-11.0) 13.1 TH/MM3 (4.0-11.0) Red Blood Count 3.54 MIL/MM3 (4.00-5.30) 3.09 MIL/MM3 (4.00-5.30) 2.74 MIL/MM3 (4.00-5.30) Hemoglobin 11.4 GM/DL (11.6-15.3) 9.9 GM/DL (11.6-15.3) 9.0 GM/DL (11.6-15.3) Hematocrit 34.6 % (35.0-46.0) 30.0 % (35.0-46.0) 26.7 % (35.0-46.0) Random Glucose 199 MG/DL (74-106) 108 MG/DL (74-106) Calcium Level 8.4 MG/DL (8.5-10.1) 7.4 MG/DL (8.5-10.1) 7.6 MG/DL (8.5-10.1) Estimat Glomerular Filtration Rate 81 ML/MIN (>89) 61 ML/MIN (>89) 65 ML/MIN (>89) Neutrophils (%) (Auto) 78.8 % (16.0-70.0) Monocytes (%) (Auto) 9.6 % (0.0-8.0) Neutrophils # (Auto) 10.3 TH/MM3 (1.8-7.7) Monocytes # (Auto) 1.3 TH/MM3 (0-0.9) Total Protein 5.5 GM/DL (6.4-8.2) Protein Corrected Calcium 8.3 MG/DL (8.5-10.1) Phosphorus Level 2.3 MG/DL (2.5-4.9) Imaging Last Impressions Abdomen X-Ray 08/09/17 0000 Signed Impressions: Service Date/Time: Wednesday, August 09, 2017 18:08 - CONCLUSION: 1. Right sided double-J stent. The distal loop is partially uncoiled which may represent positioning in the UVJ. 2. There is a second [place] loop catheter which may be excised and left within the pelvis. I have no priors for comparison to determine the exact location. 3. Nonobstructive bowel gas pattern. Herminio Trejo MD Hospital Course Patient has has an uneventful hospital course. She recovered in the PACU then was transferred to oncology floor. Her pain was controlled with [place] [employer] but then on POD #2 she was transitioned to oral Lortab. She has been eating and drinking without any n/v and been OOB to ambulate. She will be discharged on 08/13/17 Pt Condition on Discharge: Good Discharge Disposition: Discharge Home Discharge Instructions DIET: Follow Instructions for: As Tolerated, No Restrictions Activities you can perform: Pelvic Rest Activities to avoid: Lifting/Bending, Strenuous Activity, Driving Follow up Referrals: Appointment for Follow Up - 2 Weeks @ [facility] Changed Medications: Hydrocodone-Acetaminophen ([place]) 7.5-325 mg Tab 1 TAB PO every 6 hours PRN for pain, #40 TAB 0 Refills (Changed from: BID) Wong Treadwell Aug 12, 2017 08:56
[2017-08-12 12:00] VITALS: BP 87/50; PULSE 86; RESP 18; TEMP 96.9; O2SAT 100
--- NOTE | 2017-08-12 15:21 | HHI.PR ---
Subjective Subjective Notes Doing well Pain controlled using oral pain medications Objective Vitals/I&O Vital Signs Date Time Temp Pulse Resp B/P (MAP) Pulse Ox O2 Delivery O2 Flow Rate FiO2 08/12/17 12:00 96.9 86 18 87/50 (62) 100 08/09/17 14:45 Room Air 08/09/17 13:45 1 Cardiovascular: Regular Lungs: Clear Abdomen: Non-distended, Other (midline incsion with steri strips in place ), Post-op tenderness Extremities: No edema A/P Assessment and Plan 46 year old female POD3 resection of pelvic tumor -Tolerating regular diet -Gentle cathartics -OOB and mobilize as tolerated -[place] for pain -DC planning for home tomorrow - clear for DC Attending Statement The exam, history, and the medical decision-making described in the above note were completed with the assistance of the mid-level provider. I reviewed and agree with the findings presented. I attest that I had a [id number] encounter with the patient on the same day, and personally performed and documented my assessment and findings in the medical record. Abdominal exam: soft, non-tender on exam ok to DC home when pain controlled on oral medications and having bowel function Tania Yarbrough Aug 12, 2017 15:21 Anuel De Jesus MD Aug 24, 2017 23:56
[2017-08-12 16:00] VITALS: BP 100/55; PULSE 92; RESP 18; TEMP 98.9; O2SAT 99
[2017-08-12 20:00] VITALS: BP 82/48; PULSE 77; RESP 18; TEMP 98.7; O2SAT 94
[2017-08-13 00:35] VITALS: BP 85/52; PULSE 78; RESP 18; TEMP 97.6; O2SAT 95
[2017-08-13] MEDS: ACETAMINOPHEN/HYDROcodone 325 MG/7.5 MG TAB PO PRN ×2 (01:39→09:45)
[2017-08-13 04:00] VITALS: BP 91/54; PULSE 73; RESP 18; TEMP 97.3; O2SAT 96
[2017-08-13 08:00] VITALS: BP 89/47; PULSE 74; RESP 16; TEMP 97.4; O2SAT 98
[2017-08-13] MEDS: CYCLOBENZAPRINE HCL 10 MG TAB PO SCH (09:45)
== END 2017-08-13 12:23 | disposition home or self-care (01) | DRG 749 ==
LOC: HSDC 05:19 → EDSTATUS 07:30 → HSDI 12:22 → HOCA 15:02
PROVIDERS: ADMIT Obstetrics & Gynecology Gynecologic Oncology; ATTEND Obstetrics & Gynecology Gynecologic Oncology
PROC: 0DNN0ZZ Release Sigmoid Colon, Open Approach (ICD-10-PCS; 2017-08-09)
PROC: 0TN60ZZ Release Right Ureter, Open Approach (ICD-10-PCS; 2017-08-09)
PROC: 0TQ60ZZ Repair Right Ureter, Open Approach (ICD-10-PCS; 2017-08-09)
PROC: 0WBF0ZZ Excision of Abdominal Wall, Open Approach (ICD-10-PCS; 2017-08-09)
PROC: 0WBH0ZX Excision of Retroperitoneum, Open Approach, Diagnostic (ICD-10-PCS; 2017-08-09)
PROC: 0T760DZ Dilation of Right Ureter with Intraluminal Device, Open Approach (ICD-10-PCS; 2017-08-09)
PROC: 0DBS0ZZ (ICD-10-PCS; principal; 2017-08-09 07:21)
PROC: 0DNB0ZZ Release Ileum, Open Approach (ICD-10-PCS; 2017-08-09 07:21)
DX: C76.3 Malignant neoplasm of pelvis (principal); N99.71 Accidental puncture and laceration of a genitourinary system organ or structure during a genitourinary system procedure; E66.9 Obesity, unspecified; K66.0 Peritoneal adhesions (postprocedural) (postinfection); F17.210 Nicotine dependence, cigarettes, uncomplicated; Z90.711 Acquired absence of uterus with remaining cervical stump; Z90.722 Acquired absence of ovaries, bilateral; Z90.79 Acquired absence of other genital organ(s); Z98.84 Bariatric surgery status
CPT/HCPCS: 74000; 80048; 83735; 84100; 84155; 84702; 85025; 85027; 86077; 86850; 86870; 86900; 86901; 86902; 86920; 86922; 88305; 88307; 88331; 94150; C1769; J0131; J0690; J1100; J1644; J1885; J2250; J2270; J2370; J2405; J2710; J3010; J3480; J7120

== ENCOUNTER 2017-09-07 11:10 | Observation (INO) | payer OTHER ==
[~2017-09-07] VITALS: Ht 170.2 cm; Wt 113.6 kg
[2017-09-07 11:11] VITALS: BP 129/75; PULSE 82; RESP 16; TEMP 97.9; O2SAT 99
[2017-09-07] MEDS ORDERED: IOHEXOL 350 MG/ML 10 ML VIAL (for RAD DIAG) IVCONTRAST ONE (11:11)
--- NOTE | 2017-09-07 12:01 | PD ---
HPI Chief Complaint: Abnormal Results Time Seen by Provider: 12:00 (Namrata Zimmer) Travel History International Travel<30 days: No Contact w/Intl Traveler<30days: No Traveled to known affect area: No (Namrata Zimmer) History of Present Illness HPI 46 y female present to the emergency department s/p discharge from [facility] after an abdominal abscess was found. She says that she was discharged and allowed to drive herself because her vitals were stable and white blood cell count was not elevated. She states that she had a pelvic mass removed a couple of weeks ago and followed up with Dr. Hardin on as a post op follow up. States that she started developing pain and drainage around the umbilicus and presented to the [facility] emergency department yesterday. States she received antibiotics and a CT abdomen. Denies fever, chills, nausea , vomiting, diarrhea, chest pain, shortness of breath, back pain, dysuria, vaginal discharge. (Namrata Zimmer) PFSH Past Medical History Cancer: Yes (Abd mass) Cardiovascular Problems: No Diabetes: No Endocrine: No Genitourinary: No Hepatitis: No Hiatal Hernia: No Immune Disorder: No Musculoskeletal: No Neurologic: No Psychiatric: No Reproductive: No Respiratory: No Immunizations Current: No Thyroid Disease: No ?: Not (Namrata Zimmer) Past Surgical History Abdominal Surgery: Yes (CHOLEY, GASTRIC BYPASS) AICD: No Cardiac Surgery: No Ear Surgery: No Endocrine Surgery: No Eye Surgery: No Gynecologic Surgery: Yes (HYSTERECTOMY) Hysterectomy: Yes Joint Replacement: No Oral Surgery: No Pacemaker: No Thoracic Surgery: No (Namrata Zimmer) Social History Tobacco Use: No Substance Use: No (Namrata Zimmer) Allergies-Medications (Allergen,Severity, Reaction): Coded Allergies: No Known Allergies (Unverified , 09/07/17) Reported Meds & Prescriptions Reported Meds & Active Scripts Active Hopkins (Hydrocodone-Acetaminophen) 7.5-325 mg Tab 1 Tab PO EVERY 6 HOURS PRN Reported Flexeril (Cyclobenzaprine HCl) 10 Mg Tab 10 Mg PO DAILY (Arelis Jackman) Review of Systems Except as stated in HPI: all other systems reviewed are Neg (aNmrata Zimmer) Physical Exam Narrative GENERAL: Well-developed well-nourished SKIN: Warm and dry. HEAD: Atraumatic. Normocephalic. EYES: Pupils equal and round. No scleral icterus. No injection or drainage. ENT: No nasal bleeding or discharge. Mucous membranes pink and moist. NECK: Trachea midline. No JVD. CARDIOVASCULAR: Regular rate and rhythm. RESPIRATORY: No accessory muscle use. Clear to auscultation. Breath sounds equal bilaterally. GASTROINTESTINAL: Abdomen soft, nondistended. Mildly tender around the umbilicus without ecchymosis. No rebound tenderness, no masses. Scant Green exudate in central portion of umbilicus, linear well-healing scar from umbilicus to symphysis pubis without ecchymosis or lymph angiopathic spread MUSCULOSKELETAL: Extremities without clubbing, cyanosis, or edema. No obvious deformities. No CVA tenderness NEUROLOGICAL: Awake and alert. No obvious cranial nerve deficits. Motor grossly within normal limits. Five out of 5 muscle strength in the arms and legs. Normal speech. PSYCHIATRIC: Appropriate mood and affect; insight and judgment normal. (Namrata Zimmer) Data Data Last Documented VS Vital Signs Date Time Temp Pulse Resp B/P (MAP) Pulse Ox O2 Delivery O2 Flow Rate FiO2 09/07/17 15:35 88 16 111/69 (83) 100 Room Air 09/07/17 11:11 97.9 (Arelis Jackman) Orders Orders Complete Blood Count With Diff (09/07/17 12:01) Comprehensive Metabolic Panel (09/07/17 12:01) Lipase (09/07/17 12:01) Prothrombin Time / Inr (Pt) (09/07/17 12:01) Act Partial Throm Time (Ptt) (09/07/17 12:01) Urinalysis - C+S If Indicated (09/07/17 12:01) Iv Access Insert/Monitor (09/07/17 12:01) Ecg Monitoring (09/07/17 12:01) Oximetry (09/07/17 12:01) Sodium Chloride 0.9% Flush (Ns Flush) (09/07/17 12:15) Electrocardiogram (09/07/17 12:01) Chest, Single Ap (09/07/17 12:01) Ed Urine Pregnancytest Poc (09/07/17 12:01) Type And Screen (09/07/17 12:19) Ct Abd/Pel W Iv Contrast(Rout) (09/07/17 ) Oral Contrast - Adult (09/07/17 15:31) Diatrizoate Liq (Md Olsen Liq) (09/07/17 15:45) Diatrizoate Liq (Md Olsen Liq) (09/07/17 15:45) Iohexol 350 Inj (Omnipaque 350 Inj) (09/07/17 11:11) Red Blood Cells (Rbc) (09/07/17 15:15) Invasive Rad Dept Consult (09/07/17 ) Vancomycin Inj (Vancomycin Inj) (09/07/17 17:45) Us Guided Aspiration (09/07/17 ) Consult [employer] Oncology (09/07/17 ) (Arelis Jackman) Labs Laboratory Tests Test 09/07/17 13:10 09/07/17 16:30 White Blood Count 5.7 TH/MM3 Red Blood Count 3.39 MIL/MM3 Hemoglobin 10.1 GM/DL Hematocrit 30.8 % Mean Corpuscular Volume 90.9 FL Mean Corpuscular Hemoglobin 29.8 PG Mean Corpuscular Hemoglobin Concent 32.8 % Red Cell Distribution Width 15.1 % Platelet Count 227 TH/MM3 Mean Platelet Volume 10.0 FL Neutrophils (%) (Auto) 59.4 % Lymphocytes (%) (Auto) 27.4 % Monocytes (%) (Auto) 12.0 % Eosinophils (%) (Auto) 0.8 % Basophils (%) (Auto) 0.4 % Neutrophils # (Auto) 3.4 TH/MM3 Lymphocytes # (Auto) 1.6 TH/MM3 Monocytes # (Auto) 0.7 TH/MM3 Eosinophils # (Auto) 0.0 TH/MM3 Basophils # (Auto) 0.0 TH/MM3 CBC Comment DIFF FINAL Differential Comment Prothrombin Time 11.7 SEC Prothromb Time International Ratio 1.1 RATIO Activated Partial Thromboplast Time 28.2 SEC Blood Urea Nitrogen 9 MG/DL Creatinine 0.67 MG/DL Random Glucose 83 MG/DL Total Protein 7.0 GM/DL Albumin 2.9 GM/DL Calcium Level 8.9 MG/DL Alkaline Phosphatase 132 U/L Aspartate Amino Transf (AST/SGOT) 11 U/L Alanine Aminotransferase (ALT/SGPT) 10 U/L Total Bilirubin 0.2 MG/DL Sodium Level 137 MEQ/L Potassium Level 4.0 MEQ/L Chloride Level 106 MEQ/L Carbon Dioxide Level 24.1 MEQ/L Anion Gap 7 MEQ/L Estimat Glomerular Filtration Rate 94 ML/MIN Lipase 35 U/L Urine Color YELLOW Urine Turbidity HAZY Urine pH 5.5 Urine Specific [place] 1.022 Urine Protein TRACE mg/dL Urine Glucose (UA) NEG mg/dL Urine Ketones NEG mg/dL Urine Occult Blood MOD Urine Nitrite NEG Urine Bilirubin NEG Urine Urobilinogen LESS THAN 2.0 MG/DL Urine Leukocyte Esterase MOD Urine RBC 43 /hpf Urine WBC 7 /hpf Urine Squamous Epithelial Cells 6 /hpf Urine Bacteria RARE /hpf Urine Mucus MOD /lpf Microscopic Urinalysis Comment CULT NOT INDICATED (Arelis Jackman) MDM Medical Decision Making Medical Screen Exam Complete: Yes Emergency Medical Condition: Yes Differential Diagnosis Abdominal abscess versus cellulitis versus mass Narrative Course 46-year-old nontoxic appearing female presents to the emergency department status post discharge from [facility] for an abdominal abscess that was found on abdominal CT scan yesterday. She states that she was allowed to drive herself secondary to stable vital signs and labs. Today she denies fever, chills and mild abdominal pain with umbilical drainage. Dr. Hardin' office is aware that she is coming here today. Physical exam demonstrated a nontoxic appearing female with mild periumbilical tenderness to palpation without mass or erythema. Scant green, foul-smelling discharge from the umbilicus. 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 Spoke with Dr. Hardin regarding this case. States that he was consulted by [facility] and an intraperitoneal and abdominal wall abscess was found, without obstruction. He states that she was directed to go straight to [facility] however apparently this was lost in translation. Dr Hardin evaluated patient this past week and she was prescribed Septra and Levaquin for a culture that was obtained from the abdominal incision site. At this point Dr. Hardin requested a CT abdomen with contrast to characterize the abscess and this will determine the need for admission and interventional radiology. Vital signs stable Labs Mild anemia at 10.1 and 30.8, PT elevated at 11.7, Alk Phos 132, Imaging pending as of hand off to [facility]. Note that there was a significant delay in obtaining the CT abdomen pelvis secondary to a problem with the EMR ordering system. (Namrata Zimmer) Physician Communication Physician Communication Discussed case with Dr. Hardin and he is familiar with this patient. (Namrata Zimmer) Condition: Stable Namrata Zimmer Sep 07, 2017 12:01 Arelis Jackman Sep 07, 2017 17:46
[2017-09-07] MEDS ORDERED: SODIUM CHLORIDE 0.9% FLUSH 10 ML FLUSH IV FLUSH PRN ×2 (12:15→18:00)
--- NOTE | 2017-09-07 13:03 | RADRPT ---
EXAM DATE/TIME: 09/07/2017 12:30 [facility] COMPARISON: No previous studies available for comparison. INDICATIONS : Chest and abdominal pain. Recently had surgery to remove a pelvic mass. MEDICAL HISTORY : Endometriosis SURGICAL HISTORY : Cholecystectomy. Hysterectomy. Gastric bypass. Pelvic mass. ENCOUNTER: Initial ACUITY: 3 days PAIN SCORE: 4/10 LOCATION: Bilateral chest FINDINGS: The heart and mediastinal structures are normal. The pulmonary vascular pattern is normal. The lung s are clear. Right internal jugular [id number]-[id number] has its tip in the superior vena cava. CONCLUSION: 1. No acute cardiopulmonary disease. Reji Mccurdy MD on September 07, 2017 at 12:41 Board Certified Radiologist. This report was verified electronically.
[2017-09-07] MEDS ORDERED: AMOXICILLIN/CLAVULANATE K 875 MG TAB PO ONE (13:45)
[2017-09-07 14:00] VITALS: BP 110/71; PULSE 84; RESP 16; O2SAT 100
[2017-09-07 14:08] LABS: APTT (PATIENT) 28.2 SEC (24.3-30.1); INTERNATIONAL NORMALIZED RATIO 1.1 RATIO; PROTHROMBIN TIME - PATIENT 11.7 SEC (9.8-11.6)
[2017-09-07 14:10] LABS: AUTOMATED NEUTROPHIL # 3.4 TH/MM3 (1.8-7.7); BASOPHIL % 0.4 % (0.0-2.0); EOSINOPHIL % 0.8 % (0.0-4.0); HEMATOCRIT 30.8 % (35.0-46.0); HEMO FLAGS DIFF FINAL; LYMPH % 27.4 % (9.0-44.0); LYMPHOCYTE # 1.6 TH/MM3 (1.0-4.8); MEAN CELL VOLUME 90.9 FL (80.0-100.0); MEAN CORPUSCULAR HEMOGLOBIN 29.8 PG (27.0-34.0); MEAN CORPUSCULAR HGB CONC 32.8 % (32.0-36.0); NEUT % 59.4 % (16.0-70.0); PLATELET COUNT 227 TH/MM3 (150-450); RED BLOOD COUNT 3.39 MIL/MM3 (4.00-5.30); RED CELL DISTRIBUTION WIDTH 15.1 % (11.6-17.2); WHITE BLOOD COUNT 5.7 TH/MM3 (4.0-11.0)
[2017-09-07 14:21] LABS: ANION GAP 7 MEQ/L (5-15); AST (GOT) 11 U/L (15-37); BICARBONATE 24.1 MEQ/L (21.0-32.0); BLOOD UREA NITROGEN 9 MG/DL (7-18); CHLORIDE 106 MEQ/L (98-107); GLOMERULAR FILTRATION RATE 94 ML/MIN (>89); SODIUM (NA) 137 MEQ/L (136-145)
[2017-09-07 14:22] LABS: ALT (GPT) 10 U/L (10-53)
[2017-09-07 14:24] LABS: ALKALINE PHOSPHATASE 132 U/L (45-117); TOTAL BILIRUBIN ADULT 0.2 MG/DL (0.2-1.0)
[2017-09-07 15:35] VITALS: BP 111/69; PULSE 88; RESP 16; O2SAT 100
[2017-09-07] MEDS ORDERED: DIATRIZOATE MEGLUM/DIATRIZOATE SOD 9 ML CUP ONE (15:45)
[2017-09-07] MEDS ORDERED: DIATRIZOATE MEGLUM/DIATRIZOATE SOD 9 ML CUP PO ONE (15:45)
[2017-09-07 17:04] LABS: BACTERIA, URINE RARE /hpf; BLOOD, URINE MOD (NEG); COMMENT (UR) CULT NOT INDICATED; CULTURE IF INDICATED CULT NOT INDICATED; GLUCOSE,URINE NEG (NEG); KETONE, URINE NEG (NEG); MUCUS URINE MOD /lpf (OCC); NITRITE,URINE NEG (NEG); PH, URINE 5.5 (5.0-8.5); SQUAMOUS EPITHELIAL CELL URINE 6 /hpf (0-5); URINE COLOR YELLOW (YELLW/STRAW)
--- NOTE | 2017-09-07 17:22 | RADRPT ---
EXAM DATE/TIME: 09/07/2017 16:43 [facility] COMPARISON: No previous studies available for comparison. INDICATIONS : Abdomen abscess seen on cat scan done at [facility]. IV CONTRAST: 73 cc Omnipaque 350 (iohexol) IV ORAL CONTRAST: Prescribed oral contrast ingested. RADIATION DOSE: 14.42 CTDIvol (mGy) MEDICAL HISTORY : Abdomen mass SURGICAL HISTORY : Hysterectomy. ENCOUNTER: Initial ACUITY: 1 day PAIN SCALE: 6/10 LOCATION: Abdomen TECHNIQUE: Volumetric scanning of the abdomen and pelvis was performed. Using automated exposure control and ad justment of the mA and/or kV according to patient size, radiation dose was kept as low as reasonably achievable to obtain optimal diagnostic quality images. DICOM format image data is available electro nically for review and comparison. FINDINGS: LOWER LUNGS: The visualized lower lungs are clear. LIVER: Homogeneous density without lesion. There is no dilation of the biliary tree. No calcified gallston es. SPLEEN: Normal size without lesion. PANCREAS: Within normal limits. KIDNEYS: There is a double-J stent on the right. I am not confident this stent extends all the way down to the urinary bladder. The most inferior portion of the stent is felt to be within the most distal aspect of the ureter terminating just proximal to the UVJ. There is hydronephrosis and hydroureter on the ri ght despite the stent. The left kidney is unremarkable. ADRENAL GLANDS: Within normal limits. VASCULAR: There is no aortic aneurysm. BOWEL/MESENTERY: Surgical clips are seen associated with the stomach suggesting gastric bypass surgery. The stomach, s mall bowel, and large bowel are unremarkable. Please see the abdominal wall discussion. ABDOMINAL WALL: There is a bilobed fluid collection seen involving the anterior abdominal wall just to the right of m idline. One component is clearly subcutaneous in nature measuring 2.9 x 2.8 cm. There is a thin commu nication to a component that involves the rectus abdominis muscle on the right. This component measur es 4.0 x 2.4 cm. No air is seen within either fluid collection. There is stranding of the subcutaneou s fat of the intra-abdominal wall and a small amount of air located more cephalad. RETROPERITONEUM: There is no lymphadenopathy. BLADDER: No wall thickening or mass. REPRODUCTIVE: Within normal limits. INGUINAL: There is no lymphadenopathy or hernia. MUSCULOSKELETAL: Within normal limits for patient age. CONCLUSION: 1. Bilobed fluid collection involving the intra-abdominal wall as detailed above. This likely relates to an abscess. It is percutaneously accessible if clinically warranted. 2. Double-J stent on the right which is not felt to extend into the urinary bladder with resulting hy dronephrosis and hydroureter despite the stent. Navi Davison Jr., MD on September 07, 2017 at 17:14 Board Certified Radiologist. This report was verified electronically.
--- NOTE | 2017-09-07 17:26 | PD ---
Physical Exam Date Seen by Provider: Sep 07, 2017 Time Seen by Provider: :17 Data Data Last Documented VS Vital Signs Date Time Temp Pulse Resp B/P (MAP) Pulse Ox O2 Delivery O2 Flow Rate FiO2 09/07/17 15:35 88 16 111/69 (83) 100 Room Air 09/07/17 11:11 97.9 Orders Orders Complete Blood Count With Diff (09/07/17 12:01) Comprehensive Metabolic Panel (09/07/17 12:01) Lipase (09/07/17 12:01) Prothrombin Time / Inr (Pt) (09/07/17 12:01) Act Partial Throm Time (Ptt) (09/07/17 12:01) Urinalysis - C+S If Indicated (09/07/17 12:01) Iv Access Insert/Monitor (09/07/17 12:01) Ecg Monitoring (09/07/17 12:01) Oximetry (09/07/17 12:01) Sodium Chloride 0.9% Flush (Ns Flush) (09/07/17 12:15) Electrocardiogram (09/07/17 12:01) Chest, Single Ap (09/07/17 12:01) Ed Urine Pregnancytest Poc (09/07/17 12:01) Type And Screen (09/07/17 12:19) Ct Abd/Pel W Iv Contrast(Rout) (09/07/17 ) Oral Contrast - Adult (09/07/17 15:31) Diatrizoate Liq (Md Olsen Liq) (09/07/17 15:45) Diatrizoate Liq (Md Olsen Liq) (09/07/17 15:45) Iohexol 350 Inj (Omnipaque 350 Inj) (09/07/17 11:11) Red Blood Cells (Rbc) (09/07/17 15:15) Vancomycin Inj (Vancomycin Inj) (09/07/17 17:45) Consult Surveyor Instrument Assistant Oncology (09/07/17 ) Admit Order (Ed Use Only) (09/07/17 17:49) Us Soft Tissue (09/07/17 ) Labs Laboratory Tests Test 09/07/17 13:10 09/07/17 16:30 White Blood Count 5.7 TH/MM3 Red Blood Count 3.39 MIL/MM3 Hemoglobin 10.1 GM/DL Hematocrit 30.8 % Mean Corpuscular Volume 90.9 FL Mean Corpuscular Hemoglobin 29.8 PG Mean Corpuscular Hemoglobin Concent 32.8 % Red Cell Distribution Width 15.1 % Platelet Count 227 TH/MM3 Mean Platelet Volume 10.0 FL Neutrophils (%) (Auto) 59.4 % Lymphocytes (%) (Auto) 27.4 % Monocytes (%) (Auto) 12.0 % Eosinophils (%) (Auto) 0.8 % Basophils (%) (Auto) 0.4 % Neutrophils # (Auto) 3.4 TH/MM3 Lymphocytes # (Auto) 1.6 TH/MM3 Monocytes # (Auto) 0.7 TH/MM3 Eosinophils # (Auto) 0.0 TH/MM3 Basophils # (Auto) 0.0 TH/MM3 CBC Comment DIFF FINAL Differential Comment Prothrombin Time 11.7 SEC Prothromb Time International Ratio 1.1 RATIO Activated Partial Thromboplast Time 28.2 SEC Blood Urea Nitrogen 9 MG/DL Creatinine 0.67 MG/DL Random Glucose 83 MG/DL Total Protein 7.0 GM/DL Albumin 2.9 GM/DL Calcium Level 8.9 MG/DL Alkaline Phosphatase 132 U/L Aspartate Amino Transf (AST/SGOT) 11 U/L Alanine Aminotransferase (ALT/SGPT) 10 U/L Total Bilirubin 0.2 MG/DL Sodium Level 137 MEQ/L Potassium Level 4.0 MEQ/L Chloride Level 106 MEQ/L Carbon Dioxide Level 24.1 MEQ/L Anion Gap 7 MEQ/L Estimat Glomerular Filtration Rate 94 ML/MIN Lipase 35 U/L Urine Color YELLOW Urine Turbidity HAZY Urine pH 5.5 Urine Specific [place] 1.022 Urine Protein TRACE mg/dL Urine Glucose (UA) NEG mg/dL Urine Ketones NEG mg/dL Urine Occult Blood MOD Urine Nitrite NEG Urine Bilirubin NEG Urine Urobilinogen LESS THAN 2.0 MG/DL Urine Leukocyte Esterase MOD Urine RBC 43 /hpf Urine WBC 7 /hpf Urine Squamous Epithelial Cells 6 /hpf Urine Bacteria RARE /hpf Urine Mucus MOD /lpf Microscopic Urinalysis Comment CULT NOT INDICATED MDM Supervised Visit with KATHY: No Narrative Course This patient was initially evaluated by Namrata Shields PA-C. Please see her note for those details . Briefly this is a 46-year-old female status post exploratory laparotomy with resection of pelvic mass by Dr. Hardin on 08/09. She was in [place] yesterday visiting her grandson when she began to experience abdominal pain and was seen at [facility]. They discovered a intra-abdominal abscess by CT and discharged but there were some communication breakdown as to whether the patient was to come immediately to the emergency room or see Dr. Hardin. She states that Dr. Hardin called her this morning and recommended that she come to the emergency room. On presentation the patient endorses only mild abdominal pain, worsened by certain movements. She denies fever, chills, nausea, vomiting , dysuria. On my exam there is a well healing infraumbilical midline abdominal scar with 2 or 3 open areas that are draining purulent, foul-smelling fluid. Abdomen soft, nondistended, tender to palpation in the bilateral lower quadrants. Active bowel sounds. No CVA tenderness. EKG rate 68, sinus rhythm. VA interval 163, QRS 89, QTC 418. Normal axis. No ST changes. Reviewed by Dr. Alves. Lab work remarkable for hemoglobin of 10.1. No leukocytosis noted. CT of abdomen and pelvis reveals complex fluid collection in the abdominal wall as well as intra-abdominally. I discussed the results of the workup with Dr. Hardin. Plan for the patient to be admitted to the medicine service for observation, have drainage of the abscess and drains placed by IR tomorrow. Dr. Hardin will see the patient in the morning. I discussed this plan with the patient who is agreeable. I spoke with Dr.Shahab Worrell agrees to accept the patient to the medicine service. Please see medicine notes for disposition. Condition: Stable Arelis Jackman Sep 07, 2017 17:26
[2017-09-07] MEDS ORDERED: VANCOMYCIN INJ 1,000 MG in SODIUM CHLOR 0.9% 250 ML INJ 250 ML IV ONE (17:45)
[2017-09-07] MEDS ORDERED: NALOXONE HCL 0.4 MG/ML AMP IV PUSH PRN (18:00)
[2017-09-07] MEDS ORDERED: SENNOSIDES 8.6 MG TAB PO PRN (18:00)
[2017-09-07] MEDS ORDERED: MAGNESIUM HYDROXIDE SUSP 30 ML CUP PO PRN (18:00)
[2017-09-07] MEDS ORDERED: LACTULOSE SYRUP 20 GM/30 ML CUP PO PRN (18:00)
[2017-09-07] MEDS ORDERED: ACETAMINOPHEN 325 MG TAB PO PRN (18:00)
[2017-09-07] MEDS ORDERED: ONDANSETRON HCL 4 MG/2 ML VIAL IVP PRN (18:00)
[2017-09-07] MEDS ORDERED: BISACODYL 10 MG SUPP RECTAL PRN (18:00)
--- NOTE | 2017-09-07 18:25 | HHI.HP ---
HPI Service [facility] Hospitalists Primary Care Physician Unknown Admission Diagnosis abdominal wall abscess Diagnoses: Chief Complaint: Abdominal wall abscess Travel History International Travel<30 Days: No Contact w/Intl Traveler <30 Da: No Traveled to Known Affected Are: No History of Present Illness Ms. Yan is a 46-year-old female with a history of probable ovarian cancer status post pelvic mass resection who presented to the emergency department due to abdominal wall abscess found on a CT scan done at a hospital in [place], [place]. Patient went to an outside hospital in [place], [place] day before this admission on 09/06/2017 due to significant right lower quadrant abdominal pain. A CT scan at the outside facility indicated abdominal wall abscess. Patient was subsequently advised to follow-up at [facility] and with her gynecological oncologist Dr. Hardin. Patient underwent a pelvic mass resection about 4 weeks ago. During follow-up with her surgeon, she was given antibiotics for fluid drainage from her umbilicus. Most recently she was given Levaquin and Bactrim. Patient reports no fever or chills. Her abdominal pain is improved. In the ED, imaging studies indicated probable abdominal wall abscess. Patient denies any chest pain, shortness of breath, fever or chills. Denies any changes in bowel or bladder habits. Review of Systems Except as stated in HPI: all other systems reviewed are Neg Past Family Social History Past Medical History Endometriosis Pelvic mass likely ovarian cancer Past Surgical History Pelvic mass resection 4 weeks ago. Cholecystectomy Hysterectomy Gastric bypass Ankle surgery Reported Medications [place] 7.5325 mg tablet by mouth every 6 hours when necessary Flexeril 10 mg by mouth daily Levaquin and Bactrim. Allergies: Coded Allergies: No Known Allergies (Unverified , 09/07/17) Family History Mother had unknown cancer. Social History Patient denies using tobacco, alcohol, illicit drugs. Physical Exam Vital Signs Vital Signs Date Time Temp Pulse Resp B/P (MAP) Pulse Ox O2 Delivery O2 Flow Rate FiO2 09/07/17 15:35 88 16 111/69 (83) 100 Room Air 09/07/17 14:00 84 16 110/71 (84) 100 Room Air 09/07/17 11:11 97.9 82 16 129/75 (93) 99 Room Air Physical Exam GENERAL: This is a well-nourished, well-developed patient, in no apparent distress. SKIN: No rashes, ecchymoses or lesions. Warm and dry. HEAD: Atraumatic. Normocephalic. No temporal or scalp tenderness. EYES: Pupils equal round and reactive. No injection or drainage. ENT: Nose without bleeding, purulent drainage or septal hematoma. Airway patent. NECK: Trachea midline. No lymphadenopathy. Supple, nontender, no meningeal signs. CARDIOVASCULAR: Regular rate and rhythm without murmurs, gallops, or rubs. No JVD. RESPIRATORY: Clear to auscultation. Breath sounds equal bilaterally. No wheezes , rales, or rhonchi. GASTROINTESTINAL: Abdomen soft, mild tenderness on the right lower quadrant on palpation, nondistended. No guarding. MUSCULOSKELETAL: Extremities without clubbing, cyanosis, or edema. NEUROLOGICAL: Awake and alert. Cranial nerves II through XII intact. No focal neurological deficits. Normal speech. Laboratory Laboratory Tests Test 09/07/17 13:10 09/07/17 16:30 White Blood Count 5.7 Red Blood Count 3.39 Hemoglobin 10.1 Hematocrit 30.8 Mean Corpuscular Volume 90.9 Mean Corpuscular Hemoglobin 29.8 Mean Corpuscular Hemoglobin Concent 32.8 Red Cell Distribution Width 15.1 Platelet Count 227 Mean Platelet Volume 10.0 Neutrophils (%) (Auto) 59.4 Lymphocytes (%) (Auto) 27.4 Monocytes (%) (Auto) 12.0 Eosinophils (%) (Auto) 0.8 Basophils (%) (Auto) 0.4 Neutrophils # (Auto) 3.4 Lymphocytes # (Auto) 1.6 Monocytes # (Auto) 0.7 Eosinophils # (Auto) 0.0 Basophils # (Auto) 0.0 CBC Comment DIFF FINAL Differential Comment Prothrombin Time 11.7 Prothromb Time International Ratio 1.1 Activated Partial Thromboplast Time 28.2 Blood Urea Nitrogen 9 Creatinine 0.67 Random Glucose 83 Total Protein 7.0 Albumin 2.9 Calcium Level 8.9 Alkaline Phosphatase 132 Aspartate Amino Transf (AST/SGOT) 11 Alanine Aminotransferase (ALT/SGPT) 10 Total Bilirubin 0.2 Sodium Level 137 Potassium Level 4.0 Chloride Level 106 Carbon Dioxide Level 24.1 Anion Gap 7 Estimat Glomerular Filtration Rate 94 Lipase 35 Urine Color YELLOW Urine Turbidity HAZY Urine pH 5.5 Urine Specific [place] 1.022 Urine Protein TRACE Urine Glucose (UA) NEG Urine Ketones NEG Urine Occult Blood MOD Urine Nitrite NEG Urine Bilirubin NEG Urine Urobilinogen LESS THAN 2.0 Urine Leukocyte Esterase MOD Urine RBC 43 Urine WBC 7 Urine Squamous Epithelial Cells 6 Urine Bacteria RARE Urine Mucus MOD Microscopic Urinalysis Comment CULT NOT INDICATED Result Diagram: 09/07/17 1310 09/07/17 1310 Imaging Last Impressions Chest X-Ray 09/07/17 1201 Signed Impressions: Service Date/Time: Thursday, September 07, 2017 12:30 - CONCLUSION: 1. No acute cardiopulmonary disease. Reji Mccurdy MD Soft Tissue Ultrasound 09/07/17 0000 Signed Impressions: Service Date/Time: Thursday, September 07, 2017 17:55 - CONCLUSION: Nonspecific complex fluid collection in subcutaneous region. KSteven Martinez MD Abdomen/Pelvis CT 09/07/17 0000 Signed Impressions: Service Date/Time: Thursday, September 07, 2017 16:43 - CONCLUSION: 1. Bilobed fluid collection involving the intra-abdominal wall as detailed above. This likely relates to an abscess. It is percutaneously accessible if clinically warranted. 2. Double-J stent on the right which is not felt to extend into the urinary bladder with resulting hydronephrosis and hydroureter despite the stent. MD Deandre Chaney Jr. VTE Risk Assessment Caprini VTE Risk Assessment: Mod/High Risk (score >= 2) Caprini Risk Assessment Model Point Value = 1 Point Value = 2 Point Value = 3 Point Value = 5 Age 41-60 Minor surgery BMI > 25 kg/m2 Swollen legs Varicose veins or History of unexplained or recurrent spontaneous Oral contraceptives or hormone replacement Sepsis (< 1 month) Serious lung disease, including pneumonia (< 1 month) Abnormal pulmonary function Acute myocardial infarction Congestive heart failure (< 1 month) History of inflammatory bowel disease Medical patient at bed rest Age 61-74 Arthroscopic surgery Major open surgery (> 45 min) Laparoscopic surgery (> 45 min) Malignancy Confined to bed (> 72 hours) Immobilizing plaster cast Central venous access Age >= 75 History of VTE Family history of VTE Factor V Leiden Prothrombin [id number] Lupus anticoagulant Anticardiolipin antibodies Elevated serum homocysteine Heparin-induced thrombocytopenia Other congenital or acquired thrombophilia Stroke (< 1 month) Elective arthroplasty Hip, pelvis, or leg fracture Acute spinal cord injury (< 1 month) Prophylaxis Regimen Total Risk Factor Score Risk Level Prophylaxis Regimen 0-1 Low Early ambulation 2 Moderate Order ONE of the following: *Sequential Compression Device (SCD) *Heparin 5000 units SQ BID 3-4 Higher Order ONE of the following medications: *Heparin 5000 units SQ TID *Enoxaparin/Lovenox 40 mg SQ daily (WT < 150 kg, CrCl > 30 mL/min) *Enoxaparin/Lovenox 30 mg SQ daily (WT < 150 kg, CrCl > 10-29 mL/min) *Enoxaparin/Lovenox 30 mg SQ BID (WT < 150 kg, CrCl > 30 mL/min) AND/OR *Sequential Compression Device (SCD) 5 or more Highest Order ONE of the following medications: *Heparin 5000 units SQ TID (Preferred with Epidurals) *Enoxaparin/Lovenox 40 mg SQ daily (WT < 150 kg, CrCl > 30 mL/min) *Enoxaparin/Lovenox 30 mg SQ daily (WT < 150 kg, CrCl > 10-29 mL/min) *Enoxaparin/Lovenox 30 mg SQ BID (WT < 150 kg, CrCl > 30 mL/min) AND *Sequential Compression Device (SCD) Assessment and Plan Problem List: (1) Abdominal wall abscess ICD Code: L02.211 - Cutaneous abscess of abdominal wall (2) Pelvic mass in female ICD Code: R19.00 - Intra-abdominal and pelvic swelling, mass and lump, unspecified site Status: Resolved Assessment and Plan Ms. Yan is a pleasant 46-year-old female with a history of recent pelvic mass resection who presents to the emergency department due to abdominal wall abscess found on CT scan at an outside facility yesterday on 09/06/2017. Repeat imaging indicated abdominal wall abscess. Patient denies any fever, chills. However she reports drainage from her umbilicus. She was given Levaquin and Bactrim by her gynecological oncologist. - Abdominal wall abscess - Images reviewed by me - shows two right sided closer to the midline abdominal wall abscess. - We'll start patient on ceftriaxone 2 g every 24 hours and metronidazole 500 mg IV every 8 hours. - We'll obtain abscess culture and Gram stain at the time of abscess drainage by interventional radiology. - Continue acetaminophen, [place] for pain. - Pelvic mass - probable ovarian cancer. - Status post resection. - Dr. Hardin consulted. Full code. SCDs. Will consider pharmacological DVT Prophylaxis if longer hospital course expected. Eric Worrell DO Sep 07, 2017 6:25 pm
[2017-09-07] MEDS ORDERED: ACETAMINOPHEN/HYDROcodone 325 MG/7.5 MG TAB PO PRN (18:30)
[2017-09-07] MEDS ORDERED: MORPHINE SULFATE 4 MG/ML INJ IV PUSH PRN (18:30)
[2017-09-07 18:46] VITALS: BP 118/68
--- NOTE | 2017-09-07 18:48 | RADRPT ---
EXAM DATE/TIME: 09/07/2017 17:55 [place] COMPARISON: CT ABDOMEN & PELVIS W CONTRAST, September 07, 2017, 16:43. INDICATIONS : Fluid collection. MEDICAL HISTORY : Cancer, abdominal mass. Fluid drainage from belly button. SURGICAL HISTORY : Cholecystectomy. Hysterectomy. Gastric bypass. Left ankle surgery. ENCOUNTER: Initial ACUITY: 2 days PAIN SCORE: 4/10 LOCATION: Abdomen. AREA EVALUATED: Belly button; Right lower quadrant adjacent to midline. FINDINGS: Examination of the anterior abdominal wall demonstrates a complex fluid collection which extends for approximately 10 cm the maximum thickness of 2.5 cm and subcutaneous tissue. CONCLUSION: Nonspecific complex fluid collection in subcutaneous region. Imelda Martinez MD on September 07, 2017 at 18:44 Board Certified Radiologist. This report was verified electronically.
[2017-09-07 19:49] VITALS: BP 115/66; PULSE 82; RESP 18; TEMP 99.2; O2SAT 97
[2017-09-07] MEDS ORDERED: cefTRIAXone INJ 1,000 MG in SODIUM CHLORIDE 0.9% INJ 100 ML IV SCH (20:00)
[2017-09-07] MEDS ORDERED: SODIUM CHLORIDE 0.9% FLUSH 10 ML FLUSH IVF PRN (21:00)
[2017-09-07] MEDS: DOCUSATE SODIUM 50 MG/SENNA 8.6 MG TAB PO SCH (21:00)
[2017-09-07] MEDS: SODIUM CHLORIDE 0.9% FLUSH 10 ML FLUSH IV FLUSH SCH (22:52)
[2017-09-07] MEDS: metroNIDAZOLE 500 MG INJ 100 ML IV SCH (22:52)
[2017-09-07] MEDS: SODIUM CHLOR 0.9% 1000 ML INJ 1,000 ML IV SCH (22:52)
[2017-09-07 23:15] VITALS: BP 108/64; PULSE 67; RESP 18; TEMP 98.2; O2SAT 97
[2017-09-08] VITALS (8 sets, daily range): BP systolic 97–110; BP diastolic 53–63; PULSE 70–88; RESP 14–18; TEMP 97.7–98.8; O2SAT 95–100
[2017-09-08] MEDS: SODIUM CHLOR 0.9% 1000 ML INJ 1,000 ML IV SCH ×2 (04:30→17:17)
[2017-09-08] MEDS: metroNIDAZOLE 500 MG INJ 100 ML IV SCH ×3 (04:47→22:34)
[2017-09-08 08:32] LABS: AUTOMATED NEUTROPHIL # 2.4 TH/MM3 (1.8-7.7); BASOPHIL % 0.3 % (0.0-2.0); EOSINOPHIL # 0.1 TH/MM3 (0-0.4); EOSINOPHIL % 1.5 % (0.0-4.0); HEMATOCRIT 31.9 % (35.0-46.0); HEMO FLAGS DIFF FINAL; LYMPH % 36.2 % (9.0-44.0); LYMPHOCYTE # 1.7 TH/MM3 (1.0-4.8); MEAN CELL VOLUME 90.7 FL (80.0-100.0); MEAN CORPUSCULAR HEMOGLOBIN 30.3 PG (27.0-34.0); MEAN CORPUSCULAR HGB CONC 33.4 % (32.0-36.0); MONO % 12.2 % (0.0-8.0); NEUT % 49.8 % (16.0-70.0); PLATELET COUNT 220 TH/MM3 (150-450); RED BLOOD COUNT 3.52 MIL/MM3 (4.00-5.30); WHITE BLOOD COUNT 4.8 TH/MM3 (4.0-11.0)
[2017-09-08] MEDS: SODIUM CHLORIDE 0.9% FLUSH 10 ML FLUSH IV FLUSH SCH ×2 (09:00→21:00)
[2017-09-08] MEDS: DOCUSATE SODIUM 50 MG/SENNA 8.6 MG TAB PO SCH ×2 (09:00→22:33)
[2017-09-08 09:01] LABS: BICARBONATE 28.2 MEQ/L (21.0-32.0); POTASSIUM 3.6 MEQ/L (3.5-5.1)
[2017-09-08] MEDS: cefTRIAXone INJ 2,000 MG in SODIUM CHLORIDE 0.9% INJ 100 ML IV SCH (10:04)
--- NOTE | 2017-09-08 10:18 | HHI.PR ---
Subjective Remarks Patient says she is feeling all right this morning. Denies any chest pain or shortness of breath. Denies any nausea or vomiting. Last bowel movement was yesterday. She reports abdominal pain is controlled. No fevers. Objective Vital Signs Date Time Temp Pulse Resp B/P (MAP) Pulse Ox O2 Delivery O2 Flow Rate FiO2 09/08/17 08:32 97.7 72 16 106/55 (72) 98 09/08/17 03:25 98.3 72 17 102/56 (71) 96 09/07/17 23:15 98.2 67 18 108/64 (79) 97 09/07/17 19:49 99.2 82 18 115/66 (82) 97 09/07/17 18:46 78 16 118/68 (85) 98 09/07/17 15:35 88 16 111/69 (83) 100 Room Air 09/07/17 14:00 84 16 110/71 (84) 100 Room Air 09/07/17 11:11 97.9 82 16 129/75 (93) 99 Room Air I/O 09/07/17 09/07/17 09/07/17 09/08/17 09/08/17 09/08/17 07:00 15:00 23:00 07:00 15:00 23:00 Intake Total 25 ml Balance 25 ml Intake Oral 25 ml # Voids 1 Result Diagram: 09/08/17 0650 09/08/17 0658 Objective Remarks GENERAL: Patient sitting up in bed. Appears comfortable. SKIN: Warm and dry. HEAD: Normocephalic. EYES: No scleral icterus. No injection or drainage. NECK: Supple, trachea midline. No JVD. CARDIOVASCULAR: Regular rate and rhythm without murmurs, gallops, or rubs. RESPIRATORY: Breath sounds equal bilaterally. No accessory muscle use. GASTROINTESTINAL: Abdomen soft, non-tender, nondistended. Midline abdominal incision with slight drainage superiorly. No surrounding erythema. Abdomen nontender. MUSCULOSKELETAL: No cyanosis, or edema. BACK: Nontender without obvious deformity. No CVA tenderness. A/P Assessment and Plan Ms. Yan is a pleasant 46-year-old female with a history of recent pelvic mass resection who presents to the emergency department due to abdominal wall abscess found on CT scan at an outside facility yesterday on 09/06/2017. Repeat imaging indicated abdominal wall abscess. Patient denies any fever, chills. However she reports drainage from her umbilicus. She was given Levaquin and Bactrim by her gynecological oncologist. //Abdominal wall abscess - Images reviewed by me - shows two right sided closer to the midline abdominal wall abscess. - We'll start patient on ceftriaxone 2 g every 24 hours and metronidazole 500 mg IV every 8 hours. - We'll obtain abscess culture and Gram stain at the time of abscess drainage by interventional radiology. - Continue acetaminophen, [place] for pain. = Follow-up cultures from abdominal wall abscess. Gram-positive cocci in pairs. Continue ceftriaxone and metronidazole. If patient develops leukocytosis or fevers, will add vancomycin for MRSA coverage. //Pelvic mass - probable ovarian cancer. - Status post resection. - Dr. Hardin consulted. Follow up recommendations. Appreciate assistance. Full code. SCDs. Will consider pharmacological DVT Prophylaxis if longer hospital course expected. Discharge Planning Pending abscess cultures Pending [employer] onc clearance. Arnulfo Bass MD Sep 08, 2017 10:18
--- NOTE | 2017-09-08 10:43 | PD.CONS ---
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 Worrell Reason for Consult abdominal wall abscess pt is s/p X lap for supracervical hysterectomy with BSO, resection of pelvic mass and repair of right ureter with urethral stent placement. 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 She underwent X Lap supracervical hysterectomy with BSO and resection of pelvic mass , repair of right ureter with urethral double J stent back on 08/09/17. She presented for her post op visit last week and had some drainage from umbilicus she was started on Septra DS BID and Levaquin 500mg daily. She states that she was in [place] with family and started having right lower abdominal pain that radiated to her back, she presented to [place] ER for evaluation. Imaging obtained showed an abdominal wall abscess, she was afebrile with no WBCs elevation. Dr. Hardin was contacted and it was his understanding that she was going to be transferred to our ER. Patient was contacted the next morning and she states the ER let her leave and she was to contact our office the next day. She was instructed to present to [facility] for further evaluation. Patient is seen in ER this morning and states that she is not painful at this time. She denies fevers, N/V but feels she is having difficulty passing urine at times. Ct scan imaging obtained shown bilobed fluid collection involving the intra-abdominal wall. Likely an abscess. It also commented that she had hydronephrosis/hydroureter on the right. IR had been consulted to drain abscess and if they feel that leaving a drain in place with improve her healing and outcomes the Dr. Hardin is in agreement to leave drain. Dr. Hardin also would like Dr. Mcelroy, urology to evaluate Ms. Yan d/t ct findings. Review of Systems Gastrointestinal: COMPLAINS OF: Abdominal pain Genitourinary: COMPLAINS OF: Dysuria Except as stated in HPI: all other systems reviewed are Neg Past Family Social History Allergies: Coded Allergies: No Known Allergies (Unverified , 09/07/17) Past Medical History ovarian cancer endometriosis Past Surgical History x lap resection of pelvic mass with supracervical hyst and bso repair of right ureter with stent placement cholecystectomy gastric bypass ankle surgery Reported Medications per emr Active Ordered Medications Current Medications Sodium Chloride (NS Flush) 2 ml UNSCH PRN IV FLUSH FLUSH AFTER USING IV ACCESS ; Start 09/07/17 at 12:15 Amoxicillin/ Clavulanate Potassium (Augmentin) 875 mg ONCE ONCE PO ; Start at 13:45; Stop 09/07/17 at 13:46; Status Cancel Diatrizoate Meglum/ Diatrizoate Sod ( Gastroclara Montez) 18 ml STK-MED ONCE .ROUTE Last administered on 09/07/17 15:49; Start 09/07/17 at 15:45; Stop 09/07/17 at 15:46; Status DC Diatrizoate Meglum/ Diatrizoate Sod ( Gastroclara [place]z) 18 ml ONCE ONCE PO ; Start 09/07/17 at 15:45; Stop 09/07/17 at 16:09; Status DC Iohexol (Omnipaque 350 Inj) 73 ml STK-MED ONCE IVCONTRAST ; Start 09/07/17 at 11:11; Stop 09/07/17 at 17:13; Status DC Vancomycin HCl 1000 mg/Sodium Chloride 250 ml @ 250 mls/hr ONCE ONCE IV ; Start 09/07/17 at 17:45; Stop 09/07/17 at 18:44; Status DC Sodium Chloride 1,000 ml @ 100 mls/hr Q10H IV Last administered on 09/07/17 22:52; Start 09/07/17 at 18:30 Sodium Chloride (NS Flush) 2 ml UNSCH PRN IV FLUSH FLUSH AFTER USING IV ACCESS ; Start 09/07/17 at 18:00; Status UNV Sodium Chloride (NS Flush) 2 ml BID IV FLUSH Last administered on 09/07/17 22 :52; Start 09/07/17 at 21:00 Acetaminophen (Tylenol) 650 mg Q4H PRN PO Headache, fever, pain 1-4; Start at 18:00 Ondansetron HCl (Zofran Inj) 4 mg Q6H PRN IVP NAUSEA OR VOMITING; Start at 18:00 Naloxone HCl (Narcan Inj) 0.4 mg UNSCH PRN IV PUSH SEE LABEL COMMENTS; Start 09/07/17 at 18:00 Senna/Docusate Sodium (Zulma-Colace) 1 tab BID PO ; Start 09/07/17 at 21:00 Magnesium Hydroxide (Milk Of Magnesia Liq) 30 ml Q12H PRN PO Mild constipation ; Start 09/07/17 at 18:00 Sennosides (Senokot) 17.2 mg Q12H PRN PO Moderate constipation; Start at 18:00 Bisacodyl (Dulcolax Supp) 10 mg DAILY PRN RECTAL SEVERE CONSITIPATION; Start 09/07/17 at 18:00 Lactulose (Lactulose Liq) 30 ml DAILY PRN PO SEVERE CONSITIPATION; Start 09/07 at 18:00 Acetaminophen/ Hydrocodone Bitart ([place] 7.5-325 Mg) 1 tab Q6H PRN PO PAIN SCALE 5 TO 10; Start 09/07/17 at 18:30 Morphine Sulfate (Morphine Inj) 4 mg Q4HR PRN IV PUSH BREAKTHROUGH PAIN; Start 09/07/17 at 18:30 Ceftriaxone Sodium 1000 mg/ Sodium Chloride 100 ml @ 200 mls/hr Q24H IV ; Start 09/07/17 at 20:00; Stop 09/07/17 at 21:32; Status DC Metronidazole 100 ml @ 100 mls/hr Q8H IV Last administered on 09/08/17t 04:47 ; Start 09/07/17 at 21:00 Heparin Sodium (Porcine) (Heparin Central Flush) 500 units UNSCH IV FLUSH ; Start 09/07/17 at 21:00 Sodium Chloride (NS Flush) 5 ml UNSCH PRN IVF SEE PROTOCOL; Start 09/07/17 at 21:00 Heparin Sodium (Porcine) (Heparin Central Flush) 250 units UNSCH PRN IV FLUSH SEE PROTOCOL; Start 09/07/17 at 21:00 Ceftriaxone Sodium 2000 mg/ Sodium Chloride 100 ml @ 200 mls/hr Q24H IV ; Start 09/08/17 at 09:00 Family History mother with cancer of unknown origin Social History denies tobacco denies alcohol or illicit drugs Physical Exam Vital Signs Vital Signs Date Time Temp Pulse Resp B/P (MAP) Pulse Ox O2 Delivery O2 Flow Rate FiO2 09/08/17 08:32 97.7 72 16 106/55 (72) 98 09/08/17 03:25 98.3 72 17 102/56 (71) 96 09/07/17 23:15 98.2 67 18 108/64 (79) 97 09/07/17 19:49 99.2 82 18 115/66 (82) 97 09/07/17 18:46 78 16 118/68 (85) 98 09/07/17 15:35 88 16 111/69 (83) 100 Room Air 09/07/17 14:00 84 16 110/71 (84) 100 Room Air 09/07/17 11:11 97.9 82 16 129/75 (93) 99 Room Air Physical Exam GENERAL: This is a well-nourished, well-developed patient, in no apparent distress. SKIN: No rashes, ecchymoses or lesions. Cool and dry. HEAD: Atraumatic. Normocephalic. No temporal or scalp tenderness. EYES: Pupils equal round and reactive. Extraocular motions intact. No scleral icterus. No injection or drainage. NECK: Trachea midline. CARDIOVASCULAR: Regular rate and rhythm without murmurs, gallops, or rubs. RESPIRATORY: Clear to auscultation. Breath sounds equal bilaterally. No wheezes , rales, or rhonchi. GASTROINTESTINAL: Abdomen soft, non-tender, nondistended. dressing to umbilicus with drainage noted MUSCULOSKELETAL: Extremities without clubbing, cyanosis, or edema. No joint tenderness, effusion, or edema noted. No calf tenderness. NEUROLOGICAL: Awake and alert. normal speech Laboratory Laboratory Tests Test 09/07/17 13:10 09/07/17 16:30 09/08/17 06:50 09/08/17 06:58 White Blood Count 5.7 4.8 Red Blood Count 3.39 3.52 Hemoglobin 10.1 10.7 Hematocrit 30.8 31.9 Mean Corpuscular Volume 90.9 90.7 Mean Corpuscular Hemoglobin 29.8 30.3 Mean Corpuscular Hemoglobin Concent 32.8 33.4 Red Cell Distribution Width 15.1 15.0 Platelet Count 227 220 Mean Platelet Volume 10.0 9.8 Neutrophils (%) (Auto) 59.4 49.8 Lymphocytes (%) (Auto) 27.4 36.2 Monocytes (%) (Auto) 12.0 12.2 Eosinophils (%) (Auto) 0.8 1.5 Basophils (%) (Auto) 0.4 0.3 Neutrophils # (Auto) 3.4 2.4 Lymphocytes # (Auto) 1.6 1.7 Monocytes # (Auto) 0.7 0.6 Eosinophils # (Auto) 0.0 0.1 Basophils # (Auto) 0.0 0.0 CBC Comment DIFF FINAL DIFF FINAL Differential Comment Prothrombin Time 11.7 Prothromb Time International Ratio 1.1 Activated Partial Thromboplast Time 28.2 Blood Urea Nitrogen 9 8 Creatinine 0.67 0.68 Random Glucose 83 79 Total Protein 7.0 Albumin 2.9 Calcium Level 8.9 8.8 Alkaline Phosphatase 132 Aspartate Amino Transf (AST/SGOT) 11 Alanine Aminotransferase (ALT/SGPT) 10 Total Bilirubin 0.2 Sodium Level 137 138 Potassium Level 4.0 3.6 Chloride Level 106 104 Carbon Dioxide Level 24.1 28.2 Anion Gap 7 6 Estimat Glomerular Filtration Rate 94 92 Lipase 35 Urine Color YELLOW Urine Turbidity HAZY Urine pH 5.5 Urine Specific [place] 1.022 Urine Protein TRACE Urine Glucose (UA) NEG Urine Ketones NEG Urine Occult Blood MOD Urine Nitrite NEG Urine Bilirubin NEG Urine Urobilinogen LESS THAN 2.0 Urine Leukocyte Esterase MOD Urine RBC 43 Urine WBC 7 Urine Squamous Epithelial Cells 6 Urine Bacteria RARE Urine Mucus MOD Microscopic Urinalysis Comment CULT NOT INDICATED Date/Time Source Procedure Growth Status 09/08/17 05:00 Abscess Abdomen Gram Stain - Final Resulted 09/08/17 05:00 Abscess Abdomen Wound Culture Pending Resulted Result Diagram: 09/08/17 0650 09/08/17 0658 Imaging Last Impressions Chest X-Ray 09/07/17 1201 Signed Impressions: Service Date/Time: Thursday, September 07, 2017 12:30 - CONCLUSION: 1. No acute cardiopulmonary disease. Reji Mccurdy MD Soft Tissue Ultrasound 09/07/17 0000 Signed Impressions: Service Date/Time: Thursday, September 07, 2017 17:55 - CONCLUSION: Nonspecific complex fluid collection in subcutaneous region. Imelda Martinez MD Abdomen/Pelvis CT 09/07/17 0000 Signed Impressions: Service Date/Time: Thursday, September 07, 2017 16:43 - CONCLUSION: 1. Bilobed fluid collection involving the intra-abdominal wall as detailed above. This likely relates to an abscess. It is percutaneously accessible if clinically warranted. 2. Double-J stent on the right which is not felt to extend into the urinary bladder with resulting hydronephrosis and hydroureter despite the stent. Navi Davison Jr., MD Assessment and Plan Problem List: (1) Abdominal wall abscess ICD Codes: L02.211 - Cutaneous abscess of abdominal wall Status: Acute Plan: IR has been consulted for CT guided drainage of abscess...possible drain placement if will improve pt's healing and outcomes culture pending abx: ceftriaxone 2 grams Q 24 hours Flagyl 500mg IV q 8 hours (2) Hydronephrosis ICD Codes: N13.30 - Unspecified hydronephrosis Plan: Dr. Mcelroy consulted for evaluation Discussed Condition With patient Steven Hardin and he is in agreement with plan of care. Wong Treadwell Sep 08, 2017 10:42
--- NOTE | 2017-09-08 11:05 | MB ---
cc: GARY ROSARIO MD,BAUTISTA PRICE,MACARIO GREGG,RACHELLE CERDA,RACQUEL JONES DATE OF CONSULTATION: 09/08/2017 REASON FOR CONSULTATION 1. Intraperitoneal and abdominal wall abscess. 2. Right hydronephrosis. 3. Recent post-op history of ovarian cancer. Twila Yan is seen. Her findings are reviewed. Images are reviewed. She is seen, examined and counseled by me in conjunction with our nurse practitioner (Wong Treadwell) and I agree with her findings, assessment and plan of care. HISTORY OF PRESENT ILLNESS This is a 46-year-old female who is now approximately 4 weeks status post exploratory laparotomy with resection of a central pelvic mass thought to be arising most likely from a right ovarian remnant. By history she had a supracervical hysterectomy and bilateral salpingo-oophorectomy years ago for severe endometriosis. 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 All grossly detectable tumor was resected. At the time of surgery the right posterolateral wall of the mass was encasing the ureter. The right ureter was transected to remove the tumor and reanastomosis was performed over a double-J stent by Dr. Alex Mcelroy of urology. She has done reasonably well. She was seen for a post-op check in our office approximately a week ago. There was some induration in the midline incision but probing it with a sterile swab did not elicit any drainage. There was a small amount of fluid on the Q-tip which was sent for culture and it did show staph as well as some gram-negative rods. She was started on Septra and Levaquin which she reports to have been taking faithfully On Wednesday night she was watching a ballgame. I believe it was her grandson's ballgame. She started feeling poorly with abdominal pain and presented to the [facility]. I received a call from the emergency room physician and general surgeon from the [facility] at approximately midnight early Wednesday morning where they reported findings of abscess in the abdominal wall and in the peritoneal cavity and her feeling poorly. They felt it best that she return to [facility] for evaluation and management and the plan was to either have her undergo an emergency room to emergency room transfer or they felt she may be stable enough to transfer by private vehicle and present to the emergency room at [facility]. However, she did not present to the emergency room at [facility] and when she did not show up we contacted her the next morning, reviewed with her the findings and concern that abscess may need drainage and may not respond to antibiotics alone, and she was encouraged to come to [facility] for further evaluation and management and she presented as instructed. Upon arrival she has remained afebrile. She still has abdominal pain. She has not had any nausea or vomiting. Bowel and bladder function are otherwise at baseline. The CT of the abdomen and pelvis at [facility] confirms a bilobed abscess in the subcutaneous tissue, seems to be draining through the umbilicus. Clinically it is confirmed that it is draining through the umbilicus. Subcutaneous dissection is approximately 3 cm and it narrowly communicates with the intraperitoneal abscess which is just below the abdominal wall adjacent to the rectus muscles and peritoneum and is approximately 4 cm in greatest dimension. No free air or other fluid collection. Also noted is right hydronephrosis and it appears as though the distal portion of the right ureteral stent may have slipped back from the bladder. It seems to be located in the distal ureter. White count normal at 4.8, H&H 10.7 and 31.9. Electrolytes including renal function normal. BUN and creatinine 8 and 0.68. PHYSICAL EXAMINATION VITAL SIGNS: On exam she is afebrile. Pulse 67-72, respirations 16-18, blood pressure 102-115/56-68. O2 saturations greater than or equal to 97% while awake. GENERAL: She is alert and oriented x3, in good spirits. LUNGS: Clear. CARDIOVASCULAR: Regular rate and rhythm. ABDOMEN: Soft. It is nonacute. However, in the midline there is palpable induration that corresponds to the fluid collection that is below the umbilicus within the subcutaneous tissue of the abdominal wall and there is purulent drainage that can be elicited through the umbilicus which is just adjacent to the superior aspect of the midline vertical incision from her surgery 4 weeks ago. PELVIC: Exam is not performed as her cervix is left in situ and there is no vaginal cuff suture line. PAST MEDICAL HISTORY, PAST SURGICAL HISTORY, MEDICATIONS, ALLERGIES, FAMILY HISTORY, REVIEW OF SYSTEMS: Are all as documented in the chart and there are no new findings to add. The review of systems is as summarized in the history of present illness. Otherwise she has been without other symptoms. DISCUSSION Time is spent in discussion with Twila Yan, reviewing the findings in her case to date. I am sorry that she is feeling poorly. I am pleased that she presented to the emergency room. I expressed again concern that the issues may not be able to be resolved with antibiotics alone and that drainage of the abscess could facilitate more rapid healing and we would like to get her to a point beyond any evidence of infection so that we may move forward with additional chemotherapy as has been previously recommended. She is tentatively scheduled to start chemotherapy next week. In addition to the fluid collection above and below the abdominal wall, there is right hydronephrosis which may be able to be alleviated by readjusting the stent as it appears as though the distal edge has slipped back from the bladder and may be obstructing adequate flow or adequate healing, and also raising the possibility that this could be a urinoma draining through the abdominal wall, although there is no apparent leak of contrast from the ureter seen on CAT scan. Nevertheless, we have consulted interventional radiology to do image-guided drainage of these fluid collections and to use their judgment as to whether or not indwelling drain would be advisable. I told her that we may need to open a portion of the skin incision to help facilitate drainage. We will wait input from interventional radiology prior to making that decision. Furthermore, I have spoke with Dr. Alex Mcelroy of urology and updated him on the findings, and he graciously will see her in consult as well for evaluation and management of right hydronephrosis and evaluation of the stent placement. Discussion ensued. Questions were answered. She expressed good understanding and agreed. ASSESSMENT 1. Four weeks post-op, status post resection of central pelvic tumor thought to be cancer arising from a right ovarian remnant. 2. Abdominal wall fluid collection above and below the fascia. 3. Right hydronephrosis with distal edge of the stent not completely located at the ureterovesical junction. 4. Discussion. PLAN 1. As noted above consult interventional radiology for CT-directed of drainage of the subcutaneous fluid collection as well as the intraperitoneal fluid collection and to use their judgment if they believe an indwelling drain will help facilitate help maximize chance of resolution. 2. Consult urology, Dr. Alex Mcelroy, for evaluation and management of right hydronephrosis and evaluation of the stent. 3. Broad-spectrum antibiotics, supportive care, IV fluids, pain management. 4. Very grateful for excellent care by the hospitalist team and others. Thank you for the consultation. Will follow along in her care. MD PAULINE Miller/PANCHO /10:21 AM /10:42 AM
--- NOTE | 2017-09-08 12:41 | MB ---
cc: JOSE YANCEY DATE OF CONSULTATION 09/08/2017 REASON FOR CONSULTATION Ms. Yan is a pleasant 46-year-old female who has a history of ovarian cancer status post resection on August 09 During the resection, she was noted to have a ureteral injury of the right mid ureter. This was reanastomosed over a stent. The patient has been complaining of abdominal pain over the last few days. Initially went to [facility] with findings of an intra-abdominal abscess. She states she has a diminished appetite over this time and has been having some weakness and malaise over all. She does have some irritation from the stent with symptoms at times of overactive bladder. She states that she is moving her bowels normally. She denies any fever or chills at home. She denies any evidence of an ileus at the present time. A CT scan performed in the emergency room today showed a fluid collection along the anterior abdominal wall consistent with probable abscess. She has some mild to moderate hydronephrosis and hydroureter with the stent in place. A suggestion was made that the stent may be curled up in the distal ureter. ALLERGIES She has NO KNOWN DRUG ALLERGIES. PAST MEDICAL HISTORY Includes: 1. Endometriosis 2. History ovarian cancer. PAST SURGICAL HISTORY 1. Exploratory laparotomy with resection of pelvic mass and repair of right ureter on 08/09/2017. 2. Supracervical hysterectomy with bilateral Salpingo-oophorectomy. 3. Cholecystectomy 4. Gastric bypass 5. Ankle surgery MEDICATIONS For medications, please refer to the chart. FAMILY HISTORY Noted for cancer of unknown origin. SOCIAL HISTORY Denies smoking, drinking or using drugs. REVIEW OF SYSTEMS She notes abdominal pain, some malaise, symptoms of overactive bladder. Denies chest pain, shortness of breath, gait disturbances, bleeding disorders, psychiatric problems, neurologic problems. The remaining review of systems was performed and were negative. PHYSICAL EXAM VITAL SIGNS: Temperature is 97.7, heart rate 72, respiratory rate 16, blood pressure 106/55. GENERAL: She is a somewhat obese 46-year-old female in no acute stress. HEENT: Normocephalic, atraumatic. Pupils equal round reactive to light. Extraocular movements are intact. NECK: Supple. HEART: Regular rate and rhythm. LUNGS: Clear. ABDOMEN: Soft. She does have some drainage from the periumbilical region which she states is purulent with foul-smelling odor. : Normal female external genitalia. EXTREMITIES: Show no evidence of cyanosis, clubbing or edema. Neuro: CNII-XII intact Skin: no lesions Psych: generalized mood LABORATORY DATA White count is noted to be 4.8, hemoglobin 10.7, hematocrit 31.9, platelet counts of 220. Sodium 138, potassium 3.6, chloride 104, CO2 28.2, BUN of 8, creatinine 0.68, glucose of 79. Urinalysis shows negative nitrate, moderate leukoesterase with 43 red cells and 7 white cells. IMAGING STUDIES Shows a fluid collection involving the intra-abdominal wall, possible abscess, double-J stent on the right side which may or may not be in the entire urinary bladder with minimal hydro on the right with hydroureter. ASSESSMENT This is a 46-year-old female with recent exploratory laparotomy and removal of pelvic mass with transection of the right ureter resulting in repair with stent placement on 08/09/2017. 1. Intra-abdominal abscess, agree with CT-guided drainage. 2. Repair of right ureter in the past with stent in position, mild-moderate hydro to be due to urinary reflux and I do not see any evidence of a urinoma or evidence of an ileus. Recommend observation once drain is placed and would consider an IVP of clinical condition does not improve. We will follow closely with you. Thank you for the consult and allowing me to participate in the care of this patient. Jose SARAH /11:32 AM /12:23 PM JANET
[2017-09-08] MEDS ORDERED: LORazepam 0.5 MG TAB PO ONE (14:00)
--- NOTE | 2017-09-08 14:18 | EKG ---
Date Performed: 09/07/2017 Time Performed: 15:25:14 PTAGE: 46 years EKG: Sinus rhythm NORMAL ECG NO PREVIOUS TRACING DOCTOR: Hugn Butler Interpretating Date/Time 09/08/2017 14:15:07
--- NOTE | 2017-09-08 16:50 | PD.RAD ---
Post US Procedure Prog Note Pre Procedure Diagnosis: (1) Abdominal wall abscess Post Procedure Diagnosis: (1) Abdominal wall abscess Procedure Date: Sep 08, 2017 Supervising Radiologist: Kahlil Borja Estimated blood loss: minimal Anesthesia: Local Plan of Activity Patient to Unit: Other Patient Condition: Good See PACS Report for procedural detail/treatment Drainage Procedure Procedure 1 Imaging Guidance: Ultrasound Side: Right Procedure Type: Abscess Drainage Drainage: Suction Fluid Removal (CCs): 12 Fluid Description: Yellow, Red Findings: very septated fluid collection in subcutaneous tissue deep to incisional scar. does not appear to connect with umbilicus. fluid removed suggests seroma. Plan VS x1 then return to floor. Kahlil Borja MD Sep 08, 2017 16:50
[2017-09-08] MEDS ORDERED: LIDOCAINE HCL 1% PF 30 ML VIAL ONE (17:47)
[2017-09-09 03:33] VITALS: BP 97/56; PULSE 60; RESP 17; TEMP 97.4; O2SAT 98
[2017-09-09] MEDS: metroNIDAZOLE 500 MG INJ 100 ML IV SCH ×2 (05:17→12:44)
[2017-09-09] MEDS: SODIUM CHLOR 0.9% 1000 ML INJ 1,000 ML IV SCH ×2 (05:18→08:37)
[2017-09-09 07:25] VITALS: BP 125/69; PULSE 68; RESP 18; TEMP 97.5; O2SAT 99
--- NOTE | 2017-09-09 07:52 | RADRPT ---
EXAM DATE/TIME: 09/08/2017 16:05 [facility] COMPARISON: CT ABDOMEN & PELVIS W CONTRAST, September 07, 2017, 16:43. CT NEEDLE BIOPSY PELVIC, April 01, 2017, 8:20 . INDICATIONS : Fluid collection. MEDICAL HISTORY : Cancer, abdominal mass. Fluid drainage from belly button. SURGICAL HISTORY : Cholecystectomy. Hysterectomy. Gastric bypass. Left ankle surgery. ENCOUNTER: Subsequent ACUITY: 3 days PAIN SCORE: 3/10 LOCATION: abdomen. FLUID: Total volume of 12 cc of clear, red fluid was removed. Fluid was sent to lab for ordered studies. Post procedure scanning reveals no hematoma or other complication. TECHNIQUE: 1. Ultrasound guidance for needle aspiration. 2. Aspiration. The risks, benefits and alternatives to the procedure were explained and verbal and written consent w as obtained. The site was prepped in sterile fashion. Full sterile technique was used, including ca p, mask, sterile gloves and gown and a large sterile sheet. Hand hygiene and 2% chlorhexidine and/or betadine/alcohol prep was utilized per protocol for cutaneous antisepsis. The skin and subcutaneous tissues were infiltrated with local anesthetic solution. Sterile gel and sterile probe cover were u tilized for ultrasound guidance. With the patient on the ultrasound table, ultrasound imaging was used to select the most appropriate approach for aspiration. Ultrasound documents a lobulated septated fluid collection measuring approx imately 7.7 x 2.4 x 3.7 cm. No collection with the umbilicus is identified. A dermatotomy was made wi th an 11 blade scalpel. A 22 gauge and then an 18 gauge coaxial needle was advanced into the fluid co llection under direct ultrasound guidance. 12 cc of serous sanguinous yellow reddish clear fluid was aspirated. Secondary to the septations, lesion could not be completely aspirated. Samples were saved and sent to lab for the ordered studies. CONCLUSION: Uncomplicated ultrasound guided aspiration of then anterior abdominal wall fluid collection deep to t he surgical incision. 12 cc of serosanguineous clear fluid was aspirated suggesting that the collecti on may represent postoperative seroma. During ultrasound imaging no connection to the umbilicus is vi sualized. Kahlil Borja MD on September 09, 2017 at 7:46 Board Certified Radiologist. This report was verified electronically.
[2017-09-09] MEDS: SODIUM CHLORIDE 0.9% FLUSH 10 ML FLUSH IV FLUSH SCH (08:37)
[2017-09-09] MEDS: cefTRIAXone INJ 2,000 MG in SODIUM CHLORIDE 0.9% INJ 100 ML IV SCH (08:38)
[2017-09-09] MEDS: DOCUSATE SODIUM 50 MG/SENNA 8.6 MG TAB PO SCH (08:43)
--- NOTE | 2017-09-09 09:14 | PD.ONC.PN ---
Subjective Subjective Remarks Ms. Yan is resting in bed denies pain RN at bedside pt on IV abx fluid collection drained yesterday and no drain placed. Objective Data Date Time Temp Pulse Resp B/P (MAP) Pulse Ox O2 Delivery O2 Flow Rate FiO2 09/09/17 07:25 97.5 68 18 125/69 (87) 99 09/09/17 03:33 97.4 60 17 97/56 (70) 98 09/09/17 01:08 18 09/08/17 23:11 98.3 77 17 98/53 (68) 95 09/08/17 19:54 98.4 88 17 109/63 (78) 99 09/08/17 18:13 98.5 78 16 110/55 (73) 100 09/08/17 16:54 98.8 71 14 97/60 (72) 98 09/08/17 16:37 98.8 79 14 106/53 (70) 100 09/08/17 11:39 98.1 70 18 102/56 (71) 100 09/09/17 09/09/17 09/09/17 06:59 14:59 22:59 Intake Total 200 ml Balance 200 ml Result Diagram: 09/08/17 0650 09/08/17 0658 Culture Results Microbiology Date/Time Source Procedure Growth Status 09/08/17 16:45 Abscess Abdomen Gram Stain Pending Received 09/08/17 16:45 Abscess Abdomen Wound Culture Pending Received 09/08/17 05:00 Abscess Abdomen Gram Stain - Final Resulted 09/08/17 05:00 Abscess Abdomen Wound Culture Pending Resulted Administered Medications Medications (Trade) Dose Ordered Sig/Joan Route PRN Reason Start Time Stop Time Status Last Admin Dose Admin Sodium Chloride 1,000 ml @ 100 mls/hr Q10H IV 09/07/17 18:30 09/09/17 05:18 Sodium Chloride (NS Flush) 2 ml BID IV FLUSH 09/07/17 21:00 09/08/17 21:00 Acetaminophen (Tylenol) 650 mg Q4H PRN PO Headache, fever, pain 1-4 09/07/17 18:00 09/09/17 00:05 Ondansetron HCl (Zofran Inj) 4 mg Q6H PRN IVP NAUSEA OR VOMITING 09/07/17 18:00 09/09/17 00:05 Senna/Docusate Sodium (Zulma-Colace) 1 tab BID PO 09/07/17 21:00 09/09/17 08:43 Acetaminophen/ Hydrocodone Bitart ([place] 7.5-325 Mg) 1 tab Q6H PRN PO PAIN SCALE 5 TO 10 09/07/17 18:30 09/08/17 22:34 Metronidazole 100 ml @ 100 mls/hr Q8H IV 09/07/17 21:00 09/09/17 05:17 Ceftriaxone Sodium 2000 mg/ Sodium Chloride 100 ml @ 200 mls/hr Q24H IV 09/08/17 09:00 09/09/17 08:38 Objective Remarks GENERAL: Well-nourished, well-developed patient. SKIN: Warm and dry. HEAD: Normocephalic. EYES: No scleral icterus. No injection or drainage. CARDIOVASCULAR: Regular rate and rhythm without murmurs. RESPIRATORY: Breath sounds equal bilaterally. No accessory muscle use. GASTROINTESTINAL: Abdomen soft, non-tender, nondistended. with small amount of yellow watery drainage from umbilicus EXTREMITIES: No cyanosis, or edema. MUSCULOSKELETAL: Adequate muscle tone. NEUROLOGICAL: No obvious focal deficit. Awake, alert, and oriented x3. PSYCHIATRIC: Appropriate mood and affect; insight and judgment normal. Assessment/Plan Problem List: (1) Abdominal wall abscess ICD Codes: L02.211 - Cutaneous abscess of abdominal wall Status: Acute Plan: s/p IR drainage of fluid collection IV abx per med team gram + cocci from culture, 2nd culture is pending Ok to discharge home from ortho/prosthetic aide/onc standpoint once ok'd with urology and med team will follow up with Dr. Hardin as outpt (2) Hydronephrosis ICD Codes: N13.30 - Unspecified hydronephrosis Plan: Dr. Mcelroy, urology is following. Wong Treadwell Sep 09, 2017 09:14
[2017-09-09 11:52] VITALS: BP 93/56; PULSE 69; RESP 16; TEMP 98.1; O2SAT 99
[2017-09-09 12:02] VITALS: BP 94/60
[2017-09-09] MEDS ORDERED: LEVA750T9 PO (12:10)
[2017-09-09] MEDS ORDERED: CLIN1CAP5 PO (12:10)
--- NOTE | 2017-09-09 12:22 | HHI.PR ---
Subjective Remarks Patient says she feels all right. Reports pain is controlled. Denies any nausea or vomiting. Denies any lightheadedness or dizziness. Feels like going home. denies Constipation. Objective Vital Signs Date Time Temp Pulse Resp B/P (MAP) Pulse Ox O2 Delivery O2 Flow Rate FiO2 09/09/17 12:02 94/60 (71) 09/09/17 11:52 98.1 69 16 93/56 (68) 99 09/09/17 07:25 97.5 68 18 125/69 (87) 99 09/09/17 03:33 97.4 60 17 97/56 (70) 98 09/09/17 01:08 18 09/08/17 23:11 98.3 77 17 98/53 (68) 95 09/08/17 19:54 98.4 88 17 109/63 (78) 99 09/08/17 18:13 98.5 78 16 110/55 (73) 100 09/08/17 16:54 98.8 71 14 97/60 (72) 98 09/08/17 16:37 98.8 79 14 106/53 (70) 100 I/O 09/08/17 09/08/17 09/08/17 09/09/17 09/09/17 09/09/17 07:00 15:00 23:00 07:00 15:00 23:00 Intake Total 25 ml 200 ml 1300 ml 200 ml 100 ml Balance 25 ml 200 ml 1300 ml 200 ml 100 ml Intake Oral 25 ml 300 ml 200 ml IV Total 200 ml 1000 ml 100 ml # Voids 1 Result Diagram: 09/08/17 0650 09/08/17 0658 Objective Remarks GENERAL: Patient sitting up in bed. Appears comfortable. no change from exam yesterday. SKIN: Warm and dry. HEAD: Normocephalic. EYES: No scleral icterus. No injection or drainage. NECK: Supple, trachea midline. No JVD. CARDIOVASCULAR: Regular rate and rhythm without murmurs, gallops, or rubs. RESPIRATORY: Breath sounds equal bilaterally. No accessory muscle use. GASTROINTESTINAL: Abdomen soft, non-tender, nondistended. Midline abdominal incision with slight drainage superiorly. No surrounding erythema. Abdomen nontender. MUSCULOSKELETAL: No cyanosis, or edema. BACK: Nontender without obvious deformity. No CVA tenderness. A/P Assessment and Plan Ms. Yan is a pleasant 46-year-old female with a history of recent pelvic mass resection who presents to the emergency department due to abdominal wall abscess found on CT scan at an outside facility yesterday on 09/06/2017. Repeat imaging indicated abdominal wall abscess. Patient denies any fever, chills. However she reports drainage from her umbilicus. She was given Levaquin and Bactrim by her gynecological oncologist. //Abdominal wall abscess - Images reviewed by me - shows two right sided closer to the midline abdominal wall abscess. - We'll start patient on ceftriaxone 2 g every 24 hours and metronidazole 500 mg IV every 8 hours. - We'll obtain abscess culture and Gram stain at the time of abscess drainage by interventional radiology. - Continue acetaminophen, [place] for pain. = Follow-up cultures from abdominal wall abscess. Gram-positive cocci in pairs. Continue ceftriaxone and metronidazole. If patient develops leukocytosis or fevers, will add vancomycin for MRSA coverage. = Discussed with Dr. Post. Reviewed wound culture results from 09/01 with staph aureus, anaerobic gram-negative alina. Dr. harkins was has cleared patient for discharge. I will place on Levaquin and clindamycin for both gram-negative , gram-positive and anaerobic coverage. Patient will need to follow-up with Dr. Hardin within one week to review culture results. Patient conveys understanding. //Pelvic mass - probable ovarian cancer. - Status post resection. - Dr. Hardin consulted. Follow up recommendations. Appreciate assistance. = Discussed at length with Dr. Hardin. All of his outpatient Full code. SCDs. Will consider pharmacological DVT Prophylaxis if longer hospital course expected. Discharge Planning network manager onc cleared for discharge. Follow-up as outpatient. Cultures are still pending. Patient conveys understanding. Arnulfo Bass MD Sep 09, 2017 12:22
--- NOTE | 2017-09-09 12:25 | HHI.DS ---
Discharge Summary Admission Date Sep 07, 2017 at 17:51 Discharge Date: Sep 09, 2017 Admitting Diagnosis abdominal wall abscess (1) Abdominal wall abscess ICD Code: L02.211 - Cutaneous abscess of abdominal wall Status: Acute (2) Pelvic mass in female ICD Code: R19.00 - Intra-abdominal and pelvic swelling, mass and lump, unspecified site Status: Resolved Procedures IR drainage of abscess on 09/08. Please see report. Brief History - From Admission Ms. Yan is a 46-year-old female with a history of probable ovarian cancer status post pelvic mass resection who presented to the emergency department due to abdominal wall abscess found on a CT scan done at a hospital in [place], [place]. Patient went to an outside hospital in [place], [place] day before this admission on 09/06/2017 due to significant right lower quadrant abdominal pain. A CT scan at the outside facility indicated abdominal wall abscess. Patient was subsequently advised to follow-up at [facility] and with her gynecological oncologist Dr. Hardin. Patient underwent a pelvic mass resection about 4 weeks ago. During follow-up with her surgeon, she was given antibiotics for fluid drainage from her umbilicus. Most recently she was given Levaquin and Bactrim. Patient reports no fever or chills. Her abdominal pain is improved. In the ED, imaging studies indicated probable abdominal wall abscess. Patient denies any chest pain, shortness of breath, fever or chills. Denies any changes in bowel or bladder habits. CBC/BMP: 09/08/17 0650 09/08/17 0658 Significant Findings Laboratory Tests Test 09/07/17 13:10 09/07/17 16:30 09/08/17 06:50 09/08/17 06:58 Red Blood Count 3.39 MIL/MM3 (4.00-5.30) 3.52 MIL/MM3 (4.00-5.30) Hemoglobin 10.1 GM/DL (11.6-15.3) 10.7 GM/DL (11.6-15.3) Hematocrit 30.8 % (35.0-46.0) 31.9 % (35.0-46.0) Monocytes (%) (Auto) 12.0 % (0.0-8.0) 12.2 % (0.0-8.0) Prothrombin Time 11.7 SEC (9.8-11.6) Albumin 2.9 GM/DL (3.4-5.0) Alkaline Phosphatase 132 U/L (45-117) Aspartate Amino Transf (AST/SGOT) 11 U/L (15-37) Lipase 35 U/L (73-393) Urine Turbidity HAZY (CLEAR) Urine Occult Blood MOD (NEG) Urine Leukocyte Esterase MOD (NEG) Urine RBC 43 /hpf (0-3) Urine WBC 7 /hpf (0-5) Urine Bacteria RARE /hpf (NONE) Urine Mucus MOD /lpf (OCC) Imaging Last Impressions Needle Aspiration Ultrasound 09/08/17 0000 Signed Impressions: Service Date/Time: Friday, September 08, 2017 16:05 - CONCLUSION: Uncomplicated ultrasound guided aspiration of then anterior abdominal wall fluid collection deep to the surgical incision. 12 cc of serosanguineous clear fluid was aspirated suggesting that the collection may represent postoperative seroma. During ultrasound imaging no connection to the umbilicus is visualized. Kahlil Borja MD Chest X-Ray 09/07/17 1201 Signed Impressions: Service Date/Time: Thursday, September 07, 2017 12:30 - CONCLUSION: 1. No acute cardiopulmonary disease. Reji Mccurdy MD Soft Tissue Ultrasound 09/07/17 0000 Signed Impressions: Service Date/Time: Thursday, September 07, 2017 17:55 - CONCLUSION: Nonspecific complex fluid collection in subcutaneous region. Imelda Martinez MD Abdomen/Pelvis CT 09/07/17 0000 Signed Impressions: Service Date/Time: Thursday, September 07, 2017 16:43 - CONCLUSION: 1. Bilobed fluid collection involving the intra-abdominal wall as detailed above. This likely relates to an abscess. It is percutaneously accessible if clinically warranted. 2. Double-J stent on the right which is not felt to extend into the urinary bladder with resulting hydronephrosis and hydroureter despite the stent. Navi Davison Jr., MD Hospital Course CT and showed abdominal wall abscess. Previous culture from 09/02 with staph, gram-negative anaerobe. Patient was admitted on 09/07. This abscess underwent IR drainage on 09/08. Gram stain with gram-positive cocci in pairs. Patient was feeling well, and oncology cleared her for discharge. She'll be sent home on Levaquin and clindamycin. Abscess cultures are still pending. For problem-based summary from most recent progress note, please see below. Ms. Yan is a pleasant 46-year-old female with a history of recent pelvic mass resection who presents to the emergency department due to abdominal wall abscess found on CT scan at an outside facility yesterday on 09/06/2017. Repeat imaging indicated abdominal wall abscess. Patient denies any fever, chills. However she reports drainage from her umbilicus. She was given Levaquin and Bactrim by her gynecological oncologist. //Abdominal wall abscess - Images reviewed by me - shows two right sided closer to the midline abdominal wall abscess. - We'll start patient on ceftriaxone 2 g every 24 hours and metronidazole 500 mg IV every 8 hours. - We'll obtain abscess culture and Gram stain at the time of abscess drainage by interventional radiology. - Continue acetaminophen, [place] for pain. = Follow-up cultures from abdominal wall abscess. Gram-positive cocci in pairs. Continue ceftriaxone and metronidazole. If patient develops leukocytosis or fevers, will add vancomycin for MRSA coverage. = Discussed with Dr. Post. Reviewed wound culture results from 09/01 with staph aureus, anaerobic gram-negative alina. Dr. harkins was has cleared patient for discharge. I will place on Levaquin and clindamycin for both gram-negative , gram-positive and anaerobic coverage. Patient will need to follow-up with Dr. Hardin within one week to review culture results. Patient conveys understanding. //Pelvic mass - probable ovarian cancer. - Status post resection. - Dr. Hardin consulted. Follow up recommendations. Appreciate assistance. = Discussed at length with Dr. Hardin. All of his outpatient Full code. SCDs. Will consider pharmacological DVT Prophylaxis if longer hospital course expected. Pt Condition on Discharge: Good Discharge Disposition: Discharge Home Discharge Time: > 30 minutes Discharge Instructions DIET: Follow Instructions for: As Tolerated, No Restrictions Activities you can perform: Regular-No Restrictions, See Additionl Instruction Activities to Avoid: Lifting/Bending, Strenuous Activity Follow up Referrals: Oncology/Hematology - 3-5 Days with Ngozi Hardin MD PCP Follow-up - 1 Week Urology - 1 Week with Alex Mcelroy DO New Medications: Clindamycin (Clindamycin) 150 Mg Cap 450 MG PO Q6H for Infection for 14 Days, #168 CAP 0 Refills Levofloxacin (Levaquin) 750 Mg Tablet 750 MG PO DAILY for Infection for 14 Days, #14 TAB 0 Refills Continued Medications: Cyclobenzaprine (Flexeril) 10 Mg Tab 10 MG PO DAILY for Muscle Spasm, #90 TAB 0 Refills Hydrocodone-Acetaminophen ([place]) 7.5-325 mg Tab 1 TAB PO every 6 hours PRN for pain, #40 TAB 0 Refills Arnulfo Bass MD Sep 09, 2017 12:25
--- NOTE | 2017-09-09 12:40 | HHI.PR ---
Subjective Patient symptoms today Pt seen and examined. Feels well. Objective Vital Signs Vital Signs Date Time Temp Pulse Resp B/P (MAP) Pulse Ox O2 Delivery O2 Flow Rate FiO2 09/09/17 12:02 94/60 (71) 09/09/17 11:52 98.1 69 16 93/56 (68) 99 09/09/17 07:25 97.5 68 18 125/69 (87) 99 09/09/17 03:33 97.4 60 17 97/56 (70) 98 09/09/17 01:08 18 09/08/17 23:11 98.3 77 17 98/53 (68) 95 09/08/17 19:54 98.4 88 17 109/63 (78) 99 09/08/17 18:13 98.5 78 16 110/55 (73) 100 09/08/17 16:54 98.8 71 14 97/60 (72) 98 09/08/17 16:37 98.8 79 14 106/53 (70) 100 Intake & Output 09/09/17 09/09/17 07:00 19:00 Intake Total 500 ml 100 ml Balance 500 ml 100 ml Intake Oral 500 ml IV Total 100 ml Result Diagram: 09/08/17 0650 09/08/17 0658 Objective Remarks Abd:soft,nt,nd Some drainage still present from umbilicus. Medications and IVs Current Medications Medications (Trade) Dose Ordered Sig/Joan Route Start Time Stop Time Status Last Admin (NS Flush) 2 ml UNSCH PRN IV FLUSH 09/07/17 12:15 Sodium Chloride 1,000 ml @ 100 mls/hr Q10H IV 09/07/17 18:30 09/09/17 05:18 (NS Flush) 2 ml BID IV FLUSH 09/07/17 21:00 09/08/17 21:00 (Tylenol) 650 mg Q4H PRN PO 09/07/17 18:00 09/09/17 00:05 (Zofran Inj) 4 mg Q6H PRN IVP 09/07/17 18:00 09/09/17 00:05 (Narcan Inj) 0.4 mg UNSCH PRN IV PUSH 09/07/17 18:00 (Zulma-Colace) 1 tab BID PO 09/07/17 21:00 09/09/17 08:43 (Milk Of Magnesia Liq) 30 ml Q12H PRN PO 09/07/17 18:00 (Senokot) 17.2 mg Q12H PRN PO 09/07/17 18:00 (Dulcolax Supp) 10 mg DAILY PRN RECTAL 09/07/17 18:00 (Lactulose Liq) 30 ml DAILY PRN PO 09/07/17 18:00 ([place] 7.5-325 Mg) 1 tab Q6H PRN PO 09/07/17 18:30 09/08/17 22:34 (Morphine Inj) 4 mg Q4HR PRN IV PUSH 09/07/17 18:30 Metronidazole 100 ml @ 100 mls/hr Q8H IV 09/07/17 21:00 09/09/17 05:17 (Heparin Central Flush) 500 units UNSCH IV FLUSH 09/07/17 21:00 (NS Flush) 5 ml UNSCH PRN IVF 09/07/17 21:00 (Heparin Central Flush) 250 units UNSCH PRN IV FLUSH 09/07/17 21:00 Ceftriaxone Sodium 2000 mg/ Sodium Chloride 100 ml @ 200 mls/hr Q24H IV 09/08/17 09:00 09/09/17 08:38 Assessment and Plan Assessment and Plan Stable s/p drainage of seroma F/U in a few weeks for cysto/pull out retrograde study Alex Mcelroy DO Sep 09, 2017 12:40
== END 2017-09-09 16:15 | disposition home or self-care (01) ==
LOC: NEPE 11:10 → NEDA 17:51 → NEPGCP 18:54
PROVIDERS: ADMIT Internal Medicine; ATTEND Internal Medicine
DX: L02.211 Cutaneous abscess of abdominal wall (principal); R19.00 Intra-abdominal and pelvic swelling, mass and lump, unspecified site; K65.1 Peritoneal abscess; R53.1 Weakness; R53.81 Other malaise; N13.30 Unspecified hydronephrosis; D64.9 Anemia, unspecified; R07.9 Chest pain, unspecified; Z85.43 Personal history of malignant neoplasm of ovary; Z98.84 Bariatric surgery status
CPT/HCPCS: 10160; 71010; 74177; 76942; 76999; 80048; 80053; 81001; 83690; 84703; 85025; 85610; 85730; 86850; 86900; 86901; 86920; 86922; 87070; 87185; 87205; 93005; 96361; 96365; 96366; 96372; 96375; 99285; G0378; J0696; J1642; J2405; J7030; Q9967; Q9963

== ENCOUNTER 2017-10-08 13:05 | Inpatient (IN) | payer OTHER ==
[~2017-10-08] VITALS: Ht 172.7 cm; Wt 115.4 kg
[~2017-10-08 13:05] MED LIST changes: +CYCL10TA PO; -CYCL1TAB29 PO; +LEVA750T9 PO
[2017-10-08 13:35] VITALS: BP 131/85; PULSE 96; RESP 20; TEMP 98.4; O2SAT 98
[2017-10-08] MEDS ORDERED: LIDOCAINE 1%/EPINEPHrine 1:100,000 SOLN 20 ML VIAL ONE (13:50)
[2017-10-08] MEDS ORDERED: MIDAZOLAM HCL 2 MG/2 ML VIAL ONE (15:40)
--- NOTE | 2017-10-08 16:32 | RADRPT ---
EXAM DATE/TIME: 10/08/2017 16:20 [place] COMPARISON: CT ABDOMEN & PELVIS W CONTRAST, September 07, 2017, 16:43. INDICATIONS : Abdominal wall abscess. SEDATION TIME: 30 minutes MEDICATION(S): 1.) 2 mg midazolam (Versed) IV 2.) 100 mcg fentanyl (Sublimaze) IV DEVICE(S): 1.) Skater 7Fr FLUID: Total volume of 5 cc of cloudy, yellow fluid was removed. Fluid was sent for laboratory ordered studies. MEDICAL HISTORY : Pelvic mass SURGICAL HISTORY : Hysterectomy. Cholecystectomy. Pelvic mass removal ENCOUNTER: Initial ACUITY: 1 day PAIN SCORE: 0/10 LOCATION: anterior PROCEDURE: 1.) Conscious sedation with continuous EKG and oximetry monitoring. PROCEDURE : 1. CT guided drainage of the periumbilical superficial soft tissues 2. Conscious sedation with continuous EKG and oximetry monitoring. The risks, benefits and alternatives to the procedure were explained and verbal and written consent w as obtained. Using automated exposure control and adjustment of the mA and/or kV according to patient size, radiation dose was kept as low as reasonably achievable to obtain optimal diagnostic quality i mages. The site was prepped in sterile fashion. Full sterile technique was used, including cap, ma sk, sterile gloves and gown and a large sterile sheet. Hand hygiene and 2% chlorhexidine and/or beta dine/alcohol prep was utilized per protocol for cutaneous antisepsis. The skin and subcutaneous tiss ues were infiltrated with local anesthetic solution. DICOM format image data is available electronic ally for review and comparison. Using CT guidance the prescribed site was localized. Drainage was performed using the prescribed cat heter The patient tolerated the procedure well and there were no complications. Conscious sedation was per formed with the prescribed dosages and duration as above in the presence of an independent trained ra diology nurse to assist in the monitoring of the patient. EKG and oximetry remained stable throughou t the procedure. The patient tolerated the procedure well and there were no complications. The patient was sent to pos t anesthesia recovery in stable condition. CONCLUSION: Uncomplicated CT guided drainage. Alfred Alcantara MD on October 08, 2017 at 16:29 Board Certified Radiologist. This report was verified electronically.
[2017-10-08 16:42] VITALS: BP 103/60; PULSE 74; RESP 18; TEMP 97.6; O2SAT 98
--- NOTE | 2017-10-08 16:42 | PD.RAD ---
Post CT Procedure Prog Note Pre Procedure Diagnosis: (1) Abdominal wall abscess Post Procedure Diagnosis: Procedure Date: Oct 08, 2017 Supervising Radiologist: Alfred Alcantara Proceduralist/Assist: chel barba Estimated blood loss: none Anesthesia: Conscious Sedation Plan of Activity Patient to Unit: ROPU Patient Condition: Good See PACS Report for procedural detail/treatment Alfred Alcantara MD Oct 08, 2017 16:42
[2017-10-08 16:57] VITALS: BP 102/45; PULSE 86; RESP 17; O2SAT 100
[2017-10-08] MEDS ORDERED: SODIUM CHLORIDE 0.9% FLUSH 10 ML FLUSH IV FLUSH PRN (17:00)
[2017-10-08] MEDS ORDERED: ACETAMINOPHEN/HYDROcodone 325 MG/5 MG TAB PO PRN (17:15)
[2017-10-08] MEDS ORDERED: ACETAMINOPHEN 500 MG CPLT PO PRN (17:15)
--- NOTE | 2017-10-08 19:28 | HHI.HP ---
HPI Service [facility] Primary Care Physician Non-Staff Admission Diagnosis Diagnoses: Chief Complaint: Intra-abdominal abscess s/p drainage. Travel History International Travel<30 Days: No Contact w/Intl Traveler <30 Da: No Traveled to Known Affected Are: No History of Present Illness Ms. Yan is a pleasant 46 year old female with a history of probable ovarian cancer (malignant central pelvic mass) s/p chemotherapy who underwent a CT guided intra-abdominal abscess drainage on the advise of her gynecological Oncologist Dr. Dias on 10/08/2017. Patient was seen in the radiology department. At the time of this interview, patient denies any chest pain, shortness of breath, fever, chills. Patient underwent surgical intervention with regards to her pelvic mass in July 2017. Since July, following her surgery, she has been having abdominal pain. Work up indicated abdominal abscess. She was admitted in August and was discharged on 09/09/2017 on Levaquin and Clindamycin. Due to persistent abdominal discomfort and drainage from the periumbilical area, she was arranged to undergo CT guided biopsy. Review of Systems Except as stated in HPI: all other systems reviewed are Neg Past Family Social History Past Medical History Pelvic mass - likely ovarian cancer Past Surgical History Cholecystectomy Partial hysterectomy Gastric bypass Ankle surgery Allergies: Coded Allergies: No Known Allergies (Verified Allergy, Unknown, 10/08/17) Family History Mother had unknown cancer. Father - throat cancer. Social History Denies using tobacco, alcohol or illicit drugs. Physical Exam Vital Signs Vital Signs Date Time Temp Pulse Resp B/P (MAP) Pulse Ox O2 Delivery O2 Flow Rate FiO2 10/08/17 16:57 86 17 102/45 (64) 100 10/08/17 16:42 97.6 74 18 103/60 (74) 98 10/08/17 13:35 98.4 96 20 131/85 (100) 98 Physical Exam GENERAL: This is a well-nourished, well-developed patient, in no apparent distress. SKIN: No rashes, ecchymoses or lesions. Cool and dry. HEAD: Atraumatic. Normocephalic. No temporal or scalp tenderness. EYES: Pupils equal round and reactive. Extraocular motions intact. No scleral icterus. No injection or drainage. ENT: Nose without bleeding, purulent drainage or septal hematoma. Throat without erythema, tonsillar hypertrophy or exudate. Uvula midline. Airway patent. NECK: Trachea midline. No JVD or lymphadenopathy. Supple, nontender, no meningeal signs. CARDIOVASCULAR: Regular rate and rhythm without murmurs, gallops, or rubs. RESPIRATORY: Clear to auscultation. Breath sounds equal bilaterally. No wheezes , rales, or rhonchi. GASTROINTESTINAL: Abdomen soft, non-tender, nondistended. No hepato-splenomegaly , or palpable masses. No guarding. MUSCULOSKELETAL: Extremities without clubbing, cyanosis, or edema. No joint tenderness, effusion, or edema noted. No calf tenderness. Negative Homans sign bilaterally. NEUROLOGICAL: Awake and alert. Cranial nerves II through XII intact. Motor and sensory grossly within normal limits. Five out of 5 muscle strength in all muscle groups. Normal speech. Imaging Last Impressions Abscess Drainage CT 10/08/17 0000 Signed Impressions: Service Date/Time: Sunday, October 08, 2017 16:20 - CONCLUSION: Uncomplicated CT guided drainage. Alfred Alcantara MD Caprinrory VTE Risk Assessment Caprini VTE Risk Assessment: No/Low Risk (score <= 1) Caprini Risk Assessment Model Point Value = 1 Point Value = 2 Point Value = 3 Point Value = 5 Age 41-60 Minor surgery BMI > 25 kg/m2 Swollen legs Varicose veins or History of unexplained or recurrent spontaneous Oral contraceptives or hormone replacement Sepsis (< 1 month) Serious lung disease, including pneumonia (< 1 month) Abnormal pulmonary function Acute myocardial infarction Congestive heart failure (< 1 month) History of inflammatory bowel disease Medical patient at bed rest Age 61-74 Arthroscopic surgery Major open surgery (> 45 min) Laparoscopic surgery (> 45 min) Malignancy Confined to bed (> 72 hours) Immobilizing plaster cast Central venous access Age >= 75 History of VTE Family history of VTE Factor V Leiden Prothrombin [id number] Lupus anticoagulant Anticardiolipin antibodies Elevated serum homocysteine Heparin-induced thrombocytopenia Other congenital or acquired thrombophilia Stroke (< 1 month) Elective arthroplasty Hip, pelvis, or leg fracture Acute spinal cord injury (< 1 month) Prophylaxis Regimen Total Risk Factor Score Risk Level Prophylaxis Regimen 0-1 Low Early ambulation 2 Moderate Order ONE of the following: *Sequential Compression Device (SCD) *Heparin 5000 units SQ BID 3-4 Higher Order ONE of the following medications: *Heparin 5000 units SQ TID *Enoxaparin/Lovenox 40 mg SQ daily (WT < 150 kg, CrCl > 30 mL/min) *Enoxaparin/Lovenox 30 mg SQ daily (WT < 150 kg, CrCl > 10-29 mL/min) *Enoxaparin/Lovenox 30 mg SQ BID (WT < 150 kg, CrCl > 30 mL/min) AND/OR *Sequential Compression Device (SCD) 5 or more Highest Order ONE of the following medications: *Heparin 5000 units SQ TID (Preferred with Epidurals) *Enoxaparin/Lovenox 40 mg SQ daily (WT < 150 kg, CrCl > 30 mL/min) *Enoxaparin/Lovenox 30 mg SQ daily (WT < 150 kg, CrCl > 10-29 mL/min) *Enoxaparin/Lovenox 30 mg SQ BID (WT < 150 kg, CrCl > 30 mL/min) AND *Sequential Compression Device (SCD) Assessment and Plan Problem List: (1) Abdominal wall abscess ICD Code: L02.211 - Cutaneous abscess of abdominal wall Status: Acute Assessment and Plan Ms. Yan is a pleasant 46 year old female with a history of pelvic mass s/p surgical intervention, chemotherapy who was sent to the radiology department for a CT guided drainage of abdominal wall abscess. She was originally diagnosed with this abdominal wall abscess back in July after surgery. She was recently admitted to the hospital and was discharged on 09/09/2017 on Levaquin and Clindamycin. However, due to persistent abdominal discomfort as well as periumbilical drainage, patient was sent to the hospital. - Abdominal wall abscess - s/p CT guided drainage on 10/08/2017 - Patient has received Levaquin, Clindamycin PO before. - Will start patient on Moxifloxacin 400mg IV Q24hrs. We can switch to PO upon discharge. - Follow culture results. - CBC, BMP in the AM. - Continue regular diet. - Pelvic mass - Dr. Hardin follows this patient in the outpatient setting. - Continue outpatient care. Full code. Ambulation. Physician Certification 2 Midnight Certification Type: Admission for Inpatient Services Order for Inpatient Services The services are ordered in accordance with Medicare regulations or non- Medicare payer requirements, as applicable. In the case of services not specified as inpatient-only, they are appropriately provided as inpatient services in accordance with the 2-midnight benchmark. Estimated LOS (days): 2 days is the estimated time the patient will need to remain in the hospital, assuming treatment plan goals are met and no additional complications. Post-Hospital Plan: Home Eric Worrell DO Oct 08, 2017 7:28 pm
[2017-10-08] MEDS ORDERED: LEVOFLOXACIN 500 MG PREMIX INJ 100 ML IV SCH (20:00)
[2017-10-08] MEDS ORDERED: AMPICILLIN-SULBACTAM INJ 3 GM in SODIUM CHLORIDE 0.9% INJ 100 ML IV SCH (20:00)
[2017-10-08 21:15] VITALS: BP 111/63; PULSE 86; RESP 20; TEMP 98.5; O2SAT 98
[2017-10-08] MEDS ORDERED: metroNIDAZOLE 500 MG TAB PO SCH (22:00)
[2017-10-08] MEDS: MOXIFLOXACIN 400 MG PREMIX 250 ML IV SCH (22:05)
[2017-10-09 00:52] VITALS: BP 112/62; PULSE 73; RESP 16; TEMP 97.2; O2SAT 97
[2017-10-09 08:00] VITALS: BP 99/55; PULSE 69; RESP 20; TEMP 97.4; O2SAT 98
[2017-10-09 10:06] LABS: AUTOMATED NEUTROPHIL # 1.3 TH/MM3 (1.8-7.7); BASOPHIL % 0.4 % (0.0-2.0); EOSINOPHIL % 1.5 % (0.0-4.0); HEMATOCRIT 31.6 % (35.0-46.0); HEMO FLAGS DIFF FINAL; LYMPH % 38.6 % (9.0-44.0); MEAN CELL VOLUME 83.5 FL (80.0-100.0); MEAN CORPUSCULAR HEMOGLOBIN 27.7 PG (27.0-34.0); MEAN CORPUSCULAR HGB CONC 33.2 % (32.0-36.0); MONO % 9.7 % (0.0-8.0); NEUT % 49.8 % (16.0-70.0); PLATELET COUNT 156 TH/MM3 (150-450); RED BLOOD COUNT 3.78 MIL/MM3 (4.00-5.30); RED CELL DISTRIBUTION WIDTH 15.8 % (11.6-17.2); WHITE BLOOD COUNT 2.7 TH/MM3 (4.0-11.0)
[2017-10-09 10:33] LABS: BICARBONATE 28.5 MEQ/L (21.0-32.0); POTASSIUM 3.5 MEQ/L (3.5-5.1)
[2017-10-09 12:00] VITALS: BP_SYST 105; BP_SYST 118; BP_DIAS 61; BP_DIAS 68; PULSE 80; RESP 20; TEMP 96.9; O2SAT 100; O2SAT 98
[2017-10-09] MEDS: ONDANSETRON HCL 4 MG/2 ML VIAL IV PUSH PRN ×2 (12:04→20:15)
--- NOTE | 2017-10-09 15:11 | HHI.PR ---
Subjective Remarks Patient denies abdominal pain, nausea or vomiting. Denies fevers or chills. Low temp registered denies diarrhea deies cp/sob/cough Objective Vitals Vital Signs Date Time Temp Pulse Resp B/P (MAP) Pulse Ox O2 Delivery O2 Flow Rate FiO2 10/09/17 12:00 96.9 80 20 105/61 (76) 98 10/09/17 08:55 Room Air 10/09/17 08:00 97.4 69 20 99/55 (70) 98 10/09/17 00:52 97.2 73 16 112/62 (79) 97 10/08/17 21:15 98.5 86 20 111/63 (79) 98 10/08/17 16:57 86 17 102/45 (64) 100 10/08/17 16:42 97.6 74 18 103/60 (74) 98 I/O 10/08/17 10/08/17 10/08/17 10/09/17 10/09/17 10/09/17 07:00 15:00 23:00 07:00 15:00 23:00 Intake Total 250 ml 120 ml Output Total 30 ml Balance 220 ml 120 ml Intake Oral 120 ml IV Total 250 ml Drainage Total 30 ml # Voids 3 # Bowel Movements 0 Result Diagram: 10/09/17 0950 10/09/17 0950 Imaging Last Impressions Abscess Drainage CT 10/08/17 0000 Signed Impressions: Service Date/Time: Sunday, October 08, 2017 16:20 - CONCLUSION: Uncomplicated CT guided drainage. Alfred Alcantara MD Objective Remarks AAOx3 NAD Lungs clear BL S1S2 RRR, no MRG abdomen soft, nt, nd no edema in lower extremities Medications and IVs Current Medications Medications (Trade) Dose Ordered Sig/Joan Route Start Time Stop Time Status Last Admin (NS Flush) 5 ml UNSCH PRN IV FLUSH 10/08/17 17:00 (Heparin Central Flush) 250 units UNSCH PRN IV FLUSH 10/08/17 17:00 10/08/17 17:46 (Heparin Central Flush) 500 units UNSCH IV FLUSH 10/08/17 17:00 ([place] 5-325 Mg) 1 tab Q6H PRN PO 10/08/17 17:15 (Tylenol) 500 mg Q6H PRN PO 10/08/17 17:15 Moxifloxacin HCl 250 ml @ 250 mls/hr Q24H IV 10/08/17 21:00 10/08/17 22:05 (Zofran Inj) 4 mg Q6H PRN IV PUSH 10/09/17 11:45 10/09/17 12:04 A/P Problem List: (1) Abdominal wall abscess ICD Code: L02.211 - Cutaneous abscess of abdominal wall Status: Acute (2) Sepsis ICD Code: A41.9 - Sepsis, unspecified organism Assessment and Plan Ms. Yan is a pleasant 46 year old female with a history of pelvic mass s/p surgical intervention, chemotherapy who was sent to the radiology department for a CT guided drainage of abdominal wall abscess. She was originally diagnosed with this abdominal wall abscess back in July after surgery. She was recently admitted to the hospital and was discharged on 09/09/2017 on Levaquin and Clindamycin. However, due to persistent abdominal discomfort as well as periumbilical drainage, patient was sent to the hospital. - Sepsis - Present on admission. WBC lestt than 4k, HR > 90 with an abdominal wall abscess. - Consult infectious disease. - Abdominal wall abscess - s/p CT guided drainage on 10/08/2017 - Patient has received Levaquin, Clindamycin PO before. - Patient has been started on Moxifloxacin 400mg IV Q24hrs. - PT eval - Pelvic mass - Dr. Hardin follows this patient in the outpatient setting. - Continue outpatient care. - Anemia - chronic anemia, normocytic. check iron studies and ferritin. Full code. Ambulation. Discharge Planning pending ID consultation Problem Qualifiers (1) Sepsis: Qualified Codes: A41.9 - Sepsis, unspecified organism Demarcus Lara MD Oct 09, 2017 15:11
[2017-10-09 15:55] VITALS: BP 95/56; PULSE 75; RESP 20; TEMP 97.6; O2SAT 100
[2017-10-09 20:00] VITALS: BP 100/58; PULSE 76; RESP 18; TEMP 98.5; O2SAT 98
[2017-10-09] MEDS: MOXIFLOXACIN 400 MG PREMIX 250 ML IV SCH (20:15)
[2017-10-10 00:19] VITALS: BP 102/56; PULSE 72; RESP 18; TEMP 98.1; O2SAT 98
[2017-10-10 08:00] VITALS: BP 109/64; PULSE 66; RESP 17; TEMP 96.9; O2SAT 98
--- NOTE | 2017-10-10 09:21 | PD.CONS ---
History of Present Illness Service Infectious disease Consult Requested By Dr. Louis Reason for Consult Evaluate patient with abdominal wall abscess Primary Care Physician Non-Staff Diagnoses: History of Present Illness Patient seen and examined. Records reviewed. Patient is a 46-year-old female, who was diagnosed to have a pelvic mass, underwent surgery August 10 for the pelvic mass. She underwent exploratory laparotomy, resection of the pelvic mass, extensive lysis of lesions, omentectomy, Ureterolysis and repair of her right ureter over a double J stent. According to the patient since after she had that surgery she has had drainage from her umbilicus. It was kind of greenish lane in color and has a foul odor to it. There was a culture from the umbilicus dated September 01, and it grew MSSA, and unable be gram-negative rods. Patient has been on some oral antibiotics. She was admitted to the hospital on September 07, and imaging studies had shown a right lower quadrant abdominal wall abscess. Another culture was sent from the umbilicus, and it grew mixed anaerobes. IR aspirated the fluid collection seen, and the culture of that fluid showed no growth. Patient was discharged on clindamycin and Levaquin and she completed the treatment. She underwent exchange of her ureter double-J stent on September 23. Patient was given her first cycle out of the 6 planned of chemotherapy on October 01. Patient stated she continued to have drainage, and was foul odor, and when she was seen in follow-up, she was told to go to the radiology department, and a drain was placed in her abdominal wall fluid collection. The drainage coming out currently is foul odor, and it has had green lane color purulent fluid. She denies any fever or chills or sweats. She has not really experienced any significant abdominal pain. No nausea or vomiting, diarrhea or any urinary complaints. Infectious disease consultation has been requested to evaluate the patient. Review of Systems Constitutional: DENIES: Fever, Chills, Night Sweats Eyes: DENIES: Eye pain Ears, nose, mouth, throat: DENIES: Nasal discharge, Oral lesions, Throat pain, Ear Pain, Sinus Pain Respiratory: DENIES: Cough, Shortness of breath Cardiovascular: DENIES: Chest pain, Palpitations, Dyspnea on Exertion, Lower Extremity Edema Gastrointestinal: DENIES: Abdominal pain, Diarrhea, Nausea, Vomiting, Difficulty Swallowing Genitourinary: DENIES: Urinary frequency, Urgency, Hematuria, Dysuria Musculoskeletal: DENIES: Joint pain, Joint Swelling, Back pain Integumentary: DENIES: Rash Immunologic/allergic: DENIES: Urticaria Neurologic: DENIES: Headache, Localized weakness Psychiatric: DENIES: Hallucinations Past Family Social History Allergies: Coded Allergies: No Known Allergies (Verified Allergy, Unknown, 10/08/17) Past Medical History Pelvic mass - likely ovarian cancer Past Surgical History Cholecystectomy Partial hysterectomy Gastric bypass Ankle surgery Reported Medications I attest that I obtained, updated or reviewed the home and current medications. Reported Meds & Active Scripts Active [place] (Hydrocodone-Acetaminophen) 7.5-325 mg Tab 1 Tab PO EVERY 6 HOURS PRN Reported Flexeril (Cyclobenzaprine HCl) 10 Mg Tab 10 Mg PO DAILY Active Ordered Medications Current Medications Medications (Trade) Dose Ordered Sig/Joan Route Start Time Stop Time Status Last Admin (NS Flush) 5 ml UNSCH PRN IV FLUSH 10/08/17 17:00 (Heparin Central Flush) 250 units UNSCH PRN IV FLUSH 10/08/17 17:00 10/08/17 17:46 (Heparin Central Flush) 500 units UNSCH IV FLUSH 10/08/17 17:00 ([place] 5-325 Mg) 1 tab Q6H PRN PO 10/08/17 17:15 (Tylenol) 500 mg Q6H PRN PO 10/08/17 17:15 Moxifloxacin HCl 250 ml @ 250 mls/hr Q24H IV 10/08/17 21:00 10/09/17 20:15 (Zofran Inj) 4 mg Q6H PRN IV PUSH 10/09/17 11:45 10/09/17 20:15 Family History Family history of cancer Social History Denies smoking No alcohol abuse No illicit drugs Physical Exam Vital Signs Vital Signs Date Time Temp Pulse Resp B/P (MAP) Pulse Ox O2 Delivery O2 Flow Rate FiO2 10/10/17 08:00 96.9 66 17 109/64 (79) 98 10/10/17 00:19 98.1 72 18 102/56 (71) 98 10/09/17 20:00 98.5 76 18 100/58 (72) 98 10/09/17 15:55 97.6 75 20 95/56 (69) 100 10/09/17 12:00 96.9 80 20 105/61 (76) 98 Physical Exam GENERAL: Patient is an obese, well-developed patient, awake and alert, not in respiratory distress. SKIN: Warm and dry. No generalized rash, no ecchymoses and no evidence of embolic lesions. HEAD: Atraumatic. Normocephalic. No temporal wasting, or tenderness. EYES: [place] conjunctiva. No petechia or hemorrhage. Pupils equal, round and reactive to light. Extraocular movements full and intact. No scleral icterus. No injection or drainage. EARS, NOSE AND THROAT: Nose without bleeding or purulent nasal discharge. No sinus tenderness. Mucous membranes pink and moist. No oral lesions noted. No exudate. No oral thrush. NECK: Trachea midline. Supple and not tender, no meningeal signs CARDIOVASCULAR: Regular rate and rhythm. No murmurs, rubs or gallops heard RESPIRATORY: Clear to auscultation. Breath sounds equal bilaterally. No rales , wheezing or rhonchi ABDOMEN: Soft, obese, non-tender, nondistended. Bowel sounds present and normoactive. No guarding. No rebound. No organomegaly. There is no drainage seen from her umbilicus. There is a percutaneous drain to the right of the umbilicus that is draining purulent tanned green color. NEUROLOGICAL: Awake and alert. Cranial nerves grossly intact. Motor grossly within normal limits. PSYCHIATRIC: Normal affect, calm and cooperative. LINE: No evidence of infection Laboratory Laboratory Tests Test 10/09/17 09:50 White Blood Count 2.7 Red Blood Count 3.78 Hemoglobin 10.5 Hematocrit 31.6 Mean Corpuscular Volume 83.5 Mean Corpuscular Hemoglobin 27.7 Mean Corpuscular Hemoglobin Concent 33.2 Red Cell Distribution Width 15.8 Platelet Count 156 Mean Platelet Volume 9.5 Neutrophils (%) (Auto) 49.8 Lymphocytes (%) (Auto) 38.6 Monocytes (%) (Auto) 9.7 Eosinophils (%) (Auto) 1.5 Basophils (%) (Auto) 0.4 Neutrophils # (Auto) 1.3 Lymphocytes # (Auto) 1.0 Monocytes # (Auto) 0.3 Eosinophils # (Auto) 0.0 Basophils # (Auto) 0.0 CBC Comment DIFF FINAL Differential Comment Blood Urea Nitrogen 11 Creatinine 0.83 Random Glucose 98 Calcium Level 8.3 Sodium Level 136 Potassium Level 3.5 Chloride Level 102 Carbon Dioxide Level 28.5 Anion Gap 6 Estimat Glomerular Filtration Rate 73 Date/Time Source Procedure Growth Status 10/08/17 16:15 Wound Other Gram Stain - Final Resulted 10/08/17 16:15 Wound Other Wound Culture - Preliminary NO GROWTH IN 24 HOURS. Resulted Result Diagram: 10/09/17 0950 10/09/17 0950 Imaging RADIOLOGY STUDIES/FILMS REVIEWED Abscess Drainage CT 10/08/17 0000 Signed Impressions: Service Date/Time: Sunday, October 08, 2017 16:20 - CONCLUSION: Uncomplicated CT guided drainage. Alfred Alcantara MD Assessment and Plan Assessment and Plan IMPRESSION Abdominal wall abscess, previous evaluation suggested loculated collections, initial IR aspiration was negative, but likely collection connected to the umbilicus is the major problem - previous C/S of that drainage has grown anaerobic GNR B lactamase (+) and MSSA Neutropenia, ?due to recent chemo she received, ?if it will continue to trend down AdenoCA pelvic mass, S/P surgery Aug 10, undergoing chemoRx RECOMMENDATION IV Zosyn Follow C/S Follow CT to document complete drainage of fluid collection Follow CBC Monitor progress I will follow along with you Thank you for this consultation Discussed Condition With Explained plan to the patient Nancy Jacobo MD Oct 10, 2017 09:21
[2017-10-10 10:06] LABS: AUTOMATED NEUTROPHIL # 0.8 TH/MM3 (1.8-7.7); BASOPHIL % 0.3 % (0.0-2.0); EOSINOPHIL % 1.3 % (0.0-4.0); HEMATOCRIT 31.5 % (35.0-46.0); LYMPH % 47.4 % (9.0-44.0); LYMPHOCYTE # 1.1 TH/MM3 (1.0-4.8); MEAN CELL VOLUME 83.1 FL (80.0-100.0); MEAN CORPUSCULAR HEMOGLOBIN 27.4 PG (27.0-34.0); MEAN CORPUSCULAR HGB CONC 32.9 % (32.0-36.0); MONO % 18.9 % (0.0-8.0); NEUT % 32.1 % (16.0-70.0); PLATELET COUNT 148 TH/MM3 (150-450); RED BLOOD COUNT 3.79 MIL/MM3 (4.00-5.30); RED CELL DISTRIBUTION WIDTH 15.3 % (11.6-17.2); WHITE BLOOD COUNT 2.4 TH/MM3 (4.0-11.0)
[2017-10-10 10:14] LABS: HEMO FLAGS AUTO DIFF
[2017-10-10 10:28] LABS: ANION GAP 6 MEQ/L (5-15); AST (GOT) 18 U/L (15-37); BICARBONATE 29.4 MEQ/L (21.0-32.0); BLOOD UREA NITROGEN 14 MG/DL (7-18); CHLORIDE 104 MEQ/L (98-107); GLOMERULAR FILTRATION RATE 78 ML/MIN (>89); POTASSIUM 3.8 MEQ/L (3.5-5.1); SODIUM (NA) 139 MEQ/L (136-145)
[2017-10-10 10:30] LABS: HDL CHOLESTEROL 66.3 MG/DL (40.0-60.0)
[2017-10-10 10:34] LABS: ALKALINE PHOSPHATASE 102 U/L (45-117); ALT (GPT) 29 U/L (10-53); TOTAL BILIRUBIN ADULT 0.2 MG/DL (0.2-1.0)
[2017-10-10 10:48] LABS: EOSINOPHILS 2 % (0-4); NEUTROPHIL # MANUAL DIFF 0.7 TH/MM3 (1.8-7.7); PLASMA CELLS 1 % (0-0); PLATELET ESTIMATE SMEAR LOW (NORMAL); PLATELET MORPHOLOGY NORMAL (NORMAL); POLYS (SEG NEUTROPHILS) 31 % (16-70); SCAN/DIFF FINAL DIFF MANUAL; WBC DIFF SAMPLE 100
[2017-10-10] MEDS: PIPERACIL-TAZO 4.5 GM PREMIX 100 ML IV SCH ×3 (11:27→21:45)
[2017-10-10 12:00] VITALS: BP 109/58; PULSE 75; RESP 16; TEMP 96.9; O2SAT 97
[2017-10-10] MEDS: ONDANSETRON HCL 4 MG/2 ML VIAL IV PUSH PRN (13:33)
--- NOTE | 2017-10-10 14:13 | HHI.PR ---
Subjective Remarks denies cp/sob afebrile abdominal pain controlled. Denies nausea or vomiting. Objective Vitals Vital Signs Date Time Temp Pulse Resp B/P (MAP) Pulse Ox O2 Delivery O2 Flow Rate FiO2 10/10/17 12:00 96.9 75 16 109/58 (75) 97 10/10/17 08:00 96.9 66 17 109/64 (79) 98 10/10/17 00:19 98.1 72 18 102/56 (71) 98 10/09/17 20:00 98.5 76 18 100/58 (72) 98 10/09/17 15:55 97.6 75 20 95/56 (69) 100 I/O 10/09/17 10/09/17 10/09/17 10/10/17 10/10/17 10/10/17 07:00 15:00 23:00 07:00 15:00 23:00 Intake Total 250 ml 120 ml 1210 ml 100 ml Output Total 30 ml 830 ml 10 ml Balance 220 ml 120 ml 380 ml -10 ml 100 ml Intake Oral 120 ml 960 ml IV Total 250 ml 250 ml 100 ml Output Urine Total 800 ml Drainage Total 30 ml 30 ml 10 ml # Voids 3 3 # Bowel Movements 0 Result Diagram: 10/10/17 0933 10/10/17 0933 Imaging Last Impressions Abscess Drainage CT 10/08/17 0000 Signed Impressions: Service Date/Time: Sunday, October 08, 2017 16:20 - CONCLUSION: Uncomplicated CT guided drainage. Alfred Alcantara MD Objective Remarks AAOx3 NAD Lungs clear BL S1S2 RRR, no MRG abdomen soft, nt, nd no edema in lower extremities Foul smelling discharge in drain Medications and IVs Current Medications Medications (Trade) Dose Ordered Sig/Joan Route Start Time Stop Time Status Last Admin (NS Flush) 5 ml UNSCH PRN IV FLUSH 10/08/17 17:00 (Heparin Central Flush) 250 units UNSCH PRN IV FLUSH 10/08/17 17:00 10/08/17 17:46 (Heparin Central Flush) 500 units UNSCH IV FLUSH 10/08/17 17:00 ([place] 5-325 Mg) 1 tab Q6H PRN PO 10/08/17 17:15 (Tylenol) 500 mg Q6H PRN PO 10/08/17 17:15 (Zofran Inj) 4 mg Q6H PRN IV PUSH 10/09/17 11:45 10/10/17 13:33 Piperacillin Sod/ Tazobactam Sod 100 ml @ 200 mls/hr Q6H IV 10/10/17 11:00 10/10/17 11:27 Urinary Catheter: No Vascular Central Line Catheter: No A/P Problem List: (1) Abdominal wall abscess ICD Code: L02.211 - Cutaneous abscess of abdominal wall Status: Acute (2) Sepsis ICD Code: A41.9 - Sepsis, unspecified organism Status: Acute (3) Anemia ICD Code: D64.9 - Anemia, unspecified Status: Chronic (4) Leukopenia due to antineoplastic chemotherapy ICD Code: D70.1 - Agranulocytosis secondary to cancer chemotherapy; T45.1X5A - Adverse effect of antineoplastic and immunosuppressive drugs, initial encounter (5) Pelvic mass in female ICD Code: R19.00 - Intra-abdominal and pelvic swelling, mass and lump, unspecified site Status: Resolved Assessment and Plan Ms. Yan is a pleasant 46 year old female with a history of pelvic mass s/p surgical intervention, chemotherapy who was sent to the radiology department for a CT guided drainage of abdominal wall abscess. She was originally diagnosed with this abdominal wall abscess back in July after surgery. She was recently admitted to the hospital and was discharged on 09/09/2017 on Levaquin and Clindamycin. However, due to persistent abdominal discomfort as well as periumbilical drainage, patient was sent to the hospital. - Sepsis - Present on admission. WBC lestt than 4k, HR > 90 with an abdominal wall abscess. - 10/10 Id consulted. Recommendations appreciated. Moxigloxacin discontinued on 10/09 and patient started on IV Zosyn. - Abdominal wall abscess - s/p CT guided drainage on 10/08/2017 - Patient has received Levaquin, Clindamycin PO before. - Moxifloxacin discontinued and patient started on IV Zosyn. - PT consulted. - Pelvic mass - Consult Dr Hardin. - Anemia - chronic anemia, normocytic. check iron studies and ferritin. - Leukopenia - Possibly due to chemotherapy vs acute infection. WBC slightly lower, continue to monito CBC w diff. Full code. Ambulation. Discharge Planning Pending DESIGN PAINTER onc consultation. On IV antibiotics Problem Qualifiers (1) Sepsis: Qualified Codes: A41.9 - Sepsis, unspecified organism (2) Anemia: Qualified Codes: D64.9 - Anemia, unspecified Demarcus Lara MD Oct 10, 2017 14:13
[2017-10-10 14:37] LABS: TRANSFERRIN IRON PROFILE 260 MG/DL (200-360)
[2017-10-10 14:40] LABS: FERRITIN 66 NG/ML (8-252)
[2017-10-10 16:00] VITALS: BP 114/65; PULSE 74; RESP 16; TEMP 96.7; O2SAT 100
[2017-10-10 20:00] VITALS: BP 99/55; PULSE 73; RESP 18; TEMP 97.2; O2SAT 99
[2017-10-11] VITALS (7 sets, daily range): BP systolic 100–117; BP diastolic 56–87; PULSE 68–79; RESP 18–20; TEMP 96.9–98.5; O2SAT 95–100
[2017-10-11] MEDS: PIPERACIL-TAZO 4.5 GM PREMIX 100 ML IV SCH ×4 (04:41→23:35)
[2017-10-11 06:09] LABS: HEMATOCRIT 28.3 % (35.0-46.0); MEAN CELL VOLUME 82.3 FL (80.0-100.0); MEAN CORPUSCULAR HGB CONC 32.7 % (32.0-36.0); PLATELET COUNT 136 TH/MM3 (150-450); RED BLOOD COUNT 3.44 MIL/MM3 (4.00-5.30); RED CELL DISTRIBUTION WIDTH 15.2 % (11.6-17.2); WHITE BLOOD COUNT 2.4 TH/MM3 (4.0-11.0)
[2017-10-11 06:12] LABS: HEMO FLAGS AUTO DIFF
[2017-10-11 07:54] LABS: EOSINOPHILS 1 % (0-4); NEUTROPHIL # MANUAL DIFF 0.3 TH/MM3 (1.8-7.7); PLATELET ESTIMATE SMEAR LOW (NORMAL); POLYS (SEG NEUTROPHILS) 11 % (16-70); WBC DIFF SAMPLE 100
[2017-10-11 07:55] LABS: PLATELET MORPHOLOGY ENLARGED (NORMAL); SCAN/DIFF FINAL DIFF MANUAL
--- NOTE | 2017-10-11 09:35 | PD.CONS ---
History of Present Illness Service [facility] ASSISTANT/ONC Consult Requested By Dr. Louis Reason for Consult pelvic mass abdominal wall abscess Primary Care Physician Non-Staff Diagnoses: History of Present Illness This is a 46 year old female known to senior construction manager/onc clinic for ovarian cancer. She underwent tumor debulking surgery on 08/09/17 and has had persistent drainage from umbilicus since her surgery despite being hospitalized and having the abscess drained by IR and multiple courses of antibiotics. She denies any significant pain, fevers or nausea/vomiting. She presented to our office on where Dr. Hardin assessed foul smelling greenish drainage from umbilicus. He contacted IR for drainage of abdominal wall abscess and drain placement. She was admitted though hospitalist team and we appreciate their assistance with Ms. Yan. ID has been consulted and pt is currently on IV Zosyn. She is seen in consultation by senior construction manager/onc for above findings. She denies any fevers, nausea or vomiting. She denies any pain. Drain is patent with yellow drainage aprox 20cc in bag at this time. Ms. Yan reports that it was drained last a couple hours ago. Review of Systems Except as stated in HPI: all other systems reviewed are Neg Past Family Social History Allergies: Coded Allergies: No Known Allergies (Verified Allergy, Unknown, 10/08/17) Past Medical History Ovarian cancer s/p IV chemotherapy Past Surgical History Cholecystectomy Partial hysterectomy Gastric bypass Ankle surgery X Lap debulking surgery 08/09/17 Reported Medications per EMR Active Ordered Medications Current Medications Lidocaine/ Epinephrine (Xylocaine-Epi 1%-1:100,000 Inj) 20 ml STK-MED ONCE .ROUTE ; Start 10/08/17 at 13:50; Stop 10/08/17 at 13:51; Status DC Fentanyl Citrate (fentaNYL INJ) 200 mcg STK-MED ONCE .ROUTE Last administered on 10/08/17t 15:40; Start 10/08/17 at 15:40; Stop 10/08/17 at 15:41; Status DC Midazolam HCl (Versed Inj) 4 mg STK-MED ONCE .ROUTE Last administered on t 15:40; Start 10/08/17 at 15:40; Stop 10/08/17 at 15:41; Status DC Sodium Chloride (NS Flush) 5 ml UNSCH PRN IV FLUSH SEE PROTOCOL TABLE; Start 10/08/17 at 17:00 Heparin Sodium (Porcine) (Heparin Central Flush) 250 units UNSCH PRN IV FLUSH SEE PROTOCOL TABLE Last administered on 10/08/17 17:46; Start 10/08/17 at 17: 00 Heparin Sodium (Porcine) (Heparin Central Flush) 500 units UNSCH IV FLUSH ; Start 10/08/17 at 17:00 Acetaminophen/ Hydrocodone Bitart ([place] 5-325 Mg) 1 tab Q6H PRN PO PAIN SCALE 5 TO 10; Start 10/08/17 at 17:15 Acetaminophen (Tylenol) 500 mg Q6H PRN PO Headache, fever, pain 1-4; Start at 17:15 Levofloxacin/ Dextrose 100 ml @ 100 mls/hr Q24H IV ; Start 10/08/17 at 20:00; Stop 10/08/17 at 20:02; Status DC Metronidazole (Flagyl) 500 mg Q8HR PO ; Start 10/08/17 at 22:00; Stop at 22:00; Status DC Ampicillin Sodium/ Sulbactam Sodium 3 gm/Sodium Chloride 100 ml @ 200 mls/hr Q6H IV ; Start 10/08/17 at 20:00; Stop 10/08/17 at 20:03; Status DC Moxifloxacin HCl 250 ml @ 250 mls/hr Q24H IV Last administered on 10/09/17 20:15; Start 10/08/17 at 21:00; Stop 10/10/17 at 09:22; Status DC Ondansetron HCl (Zofran Inj) 4 mg Q6H PRN IV PUSH NAUSEA OR VOMITING Last administered on 10/10/17 13:33; Start 10/09/17 at 11:45 Piperacillin Sod/ Tazobactam Sod 100 ml @ 200 mls/hr Q6H IV Last administered on 10/11/17 04:41; Start 10/10/17 at 11:00 Social History denies tobacco denies illicit drug use has a sister who is active in her care has a daughter Physical Exam Vital Signs Vital Signs Date Time Temp Pulse Resp B/P (MAP) Pulse Ox O2 Delivery O2 Flow Rate FiO2 10/11/17 00:46 97.5 70 18 116/59 (78) 98 10/10/17 20:00 97.2 73 18 99/55 (70) 99 10/10/17 17:25 Room Air 10/10/17 16:00 96.7 74 16 114/65 (81) 100 10/10/17 12:00 96.9 75 16 109/58 (75) 97 Physical Exam GENERAL: This is a well-nourished, well-developed patient, in no apparent distress. SKIN: No rashes, ecchymoses or lesions. Cool and dry. HEAD: Atraumatic. Normocephalic. No temporal or scalp tenderness. EYES: Pupils equal round and reactive. Extraocular motions intact. CARDIOVASCULAR: Regular rate and rhythm without murmurs, gallops, or rubs. RESPIRATORY: Clear to auscultation. Breath sounds equal bilaterally. No wheezes , rales, or rhonchi. GASTROINTESTINAL: Abdomen soft, non-tender, nondistended. midline drain placed with yellowish drainage MUSCULOSKELETAL: Extremities without clubbing, cyanosis, or edema. NEUROLOGICAL: Awake and alert. Normal speech. Laboratory Laboratory Tests Test 10/10/17 09:33 10/11/17 05:50 White Blood Count 2.4 2.4 Red Blood Count 3.79 3.44 Hemoglobin 10.4 9.3 Hematocrit 31.5 28.3 Mean Corpuscular Volume 83.1 82.3 Mean Corpuscular Hemoglobin 27.4 27.0 Mean Corpuscular Hemoglobin Concent 32.9 32.7 Red Cell Distribution Width 15.3 15.2 Platelet Count 148 136 Mean Platelet Volume 9.5 9.0 Neutrophils (%) (Auto) 32.1 Lymphocytes (%) (Auto) 47.4 Monocytes (%) (Auto) 18.9 Eosinophils (%) (Auto) 1.3 Basophils (%) (Auto) 0.3 Neutrophils # (Auto) 0.8 Lymphocytes # (Auto) 1.1 Monocytes # (Auto) 0.5 Eosinophils # (Auto) 0.0 Basophils # (Auto) 0.0 CBC Comment AUTO DIFF AUTO DIFF Differential Total Cells Counted 100 100 Neutrophils % (Manual) 31 11 Lymphocytes % 51 84 Monocytes % 15 4 Eosinophils % 2 1 Neutrophils # (Manual) 0.7 0.3 Differential Comment FINAL DIFF MANUAL FINAL DIFF MANUAL Plasma Cells 1 Platelet Estimate LOW LOW Platelet Morphology Comment NORMAL ENLARGED Red Cell Morphology Comment NORMAL Blood Urea Nitrogen 14 Creatinine 0.79 Random Glucose 102 Total Protein 7.0 Albumin 2.8 Calcium Level 8.2 Phosphorus Level 2.8 Alkaline Phosphatase 102 Aspartate Amino Transf (AST/SGOT) 18 Alanine Aminotransferase (ALT/SGPT) 29 Total Bilirubin 0.2 Sodium Level 139 Potassium Level 3.8 Chloride Level 104 Carbon Dioxide Level 29.4 Anion Gap 6 Estimat Glomerular Filtration Rate 78 Iron Level 90 Total Iron Binding Capacity 364 Percent Iron Saturation 24.7 Ferritin 66 Triglycerides Level 51 Cholesterol Level 122 LDL Cholesterol 46 HDL Cholesterol 66.3 Cholesterol/HDL Ratio 1.84 Date/Time Source Procedure Growth Status 10/08/17 16:15 Wound Other Gram Stain - Final Resulted 10/08/17 16:15 Wound Culture - Preliminary Mixed Anaerobes Resulted Result Diagram: 10/11/17 0550 10/10/17 0933 Imaging Last Impressions Abscess Drainage CT 10/08/17 0000 Signed Impressions: Service Date/Time: Wednesday, October 08, 2017 16:20 - CONCLUSION: Uncomplicated CT guided drainage. Alfred Alcantara MD Assessment and Plan Problem List: (1) Abdominal wall abscess ICD Codes: L02.211 - Cutaneous abscess of abdominal wall Status: Acute Plan: IR drained aprox 5 cc of fluid...sent for micro...ID following IV Zosyn HEAVY GROWTH MIXED ANAEROBES INCLUDING GRAM NEGATIVE RODS AND GRAM POSITIVE COCCI - BETA LAC POS drain placed with about 20 cc of yellowish fluid hospitalist following...thankful for assistance Wong Treadwell Oct 11, 2017 09:35
--- NOTE | 2017-10-11 14:36 | HHI.PR ---
Subjective Remarks Defrred entry patient seen at Patient denies abdominal pain. Denies fevers/chills. Denies cp/sob. still c/o of foul smelling discharge. Neutrophil count down Objective Vitals Vital Signs Date Time Temp Pulse Resp B/P (MAP) Pulse Ox O2 Delivery O2 Flow Rate FiO2 10/11/17 11:49 97.5 68 20 110/58 (75) 98 10/11/17 08:00 96.9 70 20 107/70 (82) 98 10/11/17 00:46 97.5 70 18 116/59 (78) 98 10/10/17 20:00 97.2 73 18 99/55 (70) 99 10/10/17 17:25 Room Air 10/10/17 16:00 96.7 74 16 114/65 (81) 100 I/O 10/10/17 10/10/17 10/10/17 10/11/17 10/11/17 10/11/17 07:00 15:00 23:00 07:00 15:00 23:00 Intake Total 100 ml 700 ml 120 ml Output Total 10 ml 30 ml 15 ml Balance -10 ml 100 ml 670 ml -15 ml 120 ml Intake Oral 600 ml 120 ml IV Total 100 ml 100 ml Drainage Total 10 ml 30 ml 15 ml # Voids 3 4 2 # Bowel Movements 1 Result Diagram: 10/11/17 0550 10/10/17 0933 Imaging Last Impressions Abscess Drainage CT 10/08/17 0000 Signed Impressions: Service Date/Time: Sunday, October 08, 2017 16:20 - CONCLUSION: Uncomplicated CT guided drainage. Alfred Alcnatara MD Objective Remarks AAOx3 NAD Lungs clear BL S1S2 RRR, no MRG abdomen soft, nt, nd no edema in lower extremities Foul smelling discharge in drain Medications and IVs Current Medications Medications (Trade) Dose Ordered Sig/Joan Route Start Time Stop Time Status Last Admin (NS Flush) 5 ml UNSCH PRN IV FLUSH 10/08/17 17:00 (Heparin Central Flush) 250 units UNSCH PRN IV FLUSH 10/08/17 17:00 10/08/17 17:46 (Heparin Central Flush) 500 units UNSCH IV FLUSH 10/08/17 17:00 ([place] 5-325 Mg) 1 tab Q6H PRN PO 10/08/17 17:15 (Tylenol) 500 mg Q6H PRN PO 10/08/17 17:15 (Zofran Inj) 4 mg Q6H PRN IV PUSH 10/09/17 11:45 10/10/17 13:33 Piperacillin Sod/ Tazobactam Sod 100 ml @ 200 mls/hr Q6H IV 10/10/17 11:00 10/11/17 12:32 A/P Problem List: (1) Abdominal wall abscess ICD Code: L02.211 - Cutaneous abscess of abdominal wall Status: Acute (2) Sepsis ICD Code: A41.9 - Sepsis, unspecified organism Status: Acute (3) Anemia ICD Code: D64.9 - Anemia, unspecified Status: Chronic (4) Leukopenia due to antineoplastic chemotherapy ICD Code: D70.1 - Agranulocytosis secondary to cancer chemotherapy; T45.1X5A - Adverse effect of antineoplastic and immunosuppressive drugs, initial encounter (5) Pelvic mass in female ICD Code: R19.00 - Intra-abdominal and pelvic swelling, mass and lump, unspecified site Status: Resolved Assessment and Plan Ms. Yan is a pleasant 46 year old female with a history of pelvic mass s/p surgical intervention, chemotherapy who was sent to the radiology department for a CT guided drainage of abdominal wall abscess. She was originally diagnosed with this abdominal wall abscess back in July after surgery. She was recently admitted to the hospital and was discharged on 09/09/2017 on Levaquin and Clindamycin. However, due to persistent abdominal discomfort as well as periumbilical drainage, patient was sent to the hospital. - Sepsis - Present on admission. WBC lestt than 4k, HR > 90 with an abdominal wall abscess. - 10/10 Id consulted. Recommendations appreciated. Moxigloxacin discontinued on 10/09 and patient started on IV Zosyn. - 10/11 Continue antibiotics as per ID. Currently on IV zosyn. - Abdominal wall abscess - s/p CT guided drainage on 10/08/2017 - Patient has received Levaquin, Clindamycin PO before. - Moxifloxacin discontinued and patient started on IV Zosyn. - PT consulted. - Pelvic mass - Dr Hardin consulted. Await recommendations on neutropenia. - Anemia - chronic anemia, normocytic. check iron studies and ferritin. - 10/11 iron studies normal. - Leukopenia/neutropenia - Possibly due to chemotherapy vs acute infection. WBC slightly lower, continue to monito CBC w diff. - 10/11 suspect due to chemotherapy.- Patient is now neutropenic. Place on neutropenic precautions. fu LEADER TIER onc recommendations. Full code. Ambulation. Discharge Planning will transfer to oncology floor since patient is neutropenic. Problem Qualifiers (1) Sepsis: Qualified Codes: A41.9 - Sepsis, unspecified organism (2) Anemia: Qualified Codes: D64.9 - Anemia, unspecified Demarcus Lara MD Oct 11, 2017 14:36
[2017-10-11] MEDS: ONDANSETRON HCL 4 MG/2 ML VIAL IV PUSH PRN (16:56)
[2017-10-12] MEDS: PIPERACIL-TAZO 4.5 GM PREMIX 100 ML IV SCH ×2 (04:58→10:54)
[2017-10-12 05:03] VITALS: BP 107/67; PULSE 61; RESP 18; TEMP 97.7; O2SAT 100
[2017-10-12 05:50] LABS: MEAN CELL VOLUME 81.8 FL (80.0-100.0); MEAN CORPUSCULAR HEMOGLOBIN 27.2 PG (27.0-34.0); MEAN CORPUSCULAR HGB CONC 33.3 % (32.0-36.0); PLATELET COUNT 133 TH/MM3 (150-450); RED CELL DISTRIBUTION WIDTH 15.2 % (11.6-17.2); WHITE BLOOD COUNT 2.5 TH/MM3 (4.0-11.0)
[2017-10-12 05:53] LABS: HEMO FLAGS AUTO DIFF
[2017-10-12 07:03] LABS: EOSINOPHILS 1 % (0-4); NEUTROPHIL # MANUAL DIFF 0.2 TH/MM3 (1.8-7.7); PLATELET ESTIMATE SMEAR LOW (NORMAL); PLATELET MORPHOLOGY NORMAL (NORMAL); POLYS (SEG NEUTROPHILS) 7 % (16-70); SCAN/DIFF FINAL DIFF MANUAL; WBC DIFF SAMPLE 100
--- NOTE | 2017-10-12 08:08 | MB ---
cc: GARY ROSARIO MD, ROLANDO M.D. THOMAS,JOSE AWLKER,BAUTISTA ALSTON,NELSON HUANG MD, DO DATE OF CONSULTATION 10/12/[address] Demarcus Louis Mus REASON FOR CONSULTATION Abdominal wall abscess. HISTORY OF PRESENT ILLNESS This patient is seen and evaluated by me and findings are reviewed. She is counseled in conjunction with me and our nurse practitioner (Wong Treadwell). I agree with her findings, assessment and plan of care. Twila Yan was seen in our office on Wednesday where persistent and worsening of drainage from an abdominal wall abscess through the umbilicus was noted. We drained it, loosely packed it and I contacted Dr. Hung Jane who graciously agreed to see and evaluate her straightaway and she was taken over to the radiology department where, as per our request, CT directed the indwelling drain was placed. She had had a previous aspiration of abdominal wall fluid collection and had been treated on antibiotics, but this did not resolve and in recent days or weeks, the drainage became more purulent, malodorous and more troublesome. On exam, it was definitely purulent, but did not appear to be enteric. There was no overt evidence of fistulous communication based on output. Repeat culture was obtained from our office prior to sending her to radiology. She is admitted to the hospital and we are again consulted for the same reason and she has been started on broad-spectrum antibiotics. Preliminary culture showed mixed anaerobes. She is being seen by Dr. Alston of Infectious Disease. She is on IV Zosyn and has an indwelling drain placed. PAST MEDICAL HISTORY Her medical history is reviewed and as is documented in the chart relevant to her past medical history, she had a history of having a complete hysterectomy, bilateral salpingo-oophorectomy, for severe endometriosis a number of years ago. However, she presented with a central mass. Biopsy showed it to be malignant and she had an elevated CA-125. She was started on Taxol and carboplatin chemotherapy. After two cycles of Taxol and Carboplatin chemotherapy, the CA-125 was not significantly reduced so we recommended surgical intervention. Accordingly, her past surgical history includes: 1. Exploratory laparotomy 2. Resection of large central mass thought to be arising from a right ovarian remnant that had encased itself around the ureter such that resection of the mass resulted in transection of the ureter which was repaired end-to-end with an overlying stent. Since surgery, she has had some clear serosanguineous type drainage from the umbilicus. She has had an abdominal wall fluid collection that previously was aspirated, but an indwelling drain was not placed. Antibiotics were used, but this problem has not resolved. She is admitted now for further evaluation and management. The final pathology from her mass showed a large portion of the mass to be a borderline ovarian tumor, but there was also invasive ovarian cancer such that when she recovers, and it improves, we have recommended additional chemotherapy. OBJECTIVE Her H&H 9 and 27, white count is 2.5, platelet count 133. Electrolytes, renal function, BUN and creatinine is 14 and 0.79. VITAL SIGNS: She has been afebrile, pulse 61-79, blood pressure 100-117 over 56-87, O2 saturations greater than or equal to 95%. Her exam was unchanged, as seen on Wednesday, she is alert and oriented x3 in no acute distress. She is frustrated by the problem, but pleased to have additional attention to try to resolve this issue. LUNGS: Clear. HEART: Regular rate and rhythm. ABDOMEN: Nonacute. Drains in place draining purulent serosanguineous fluid. BACK: Nontender. Additional time is spent discussion and followup from our discussion on Wednesday. I am sorry she is troubled by this problem, but we will make continued efforts to get this adequately drained and treat it with antibiotics and resolved. We briefly again discussed recommendation for chemotherapy once she is well from this problem. Questions were asked and answered. She expressed a good understanding. ASSESSMENT 1. 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 2. Status post neoadjuvant chemotherapy followed by exploratory laparotomy, but a note is made that she has not had any recent chemotherapy such that the neutropenia is not a direct effect of recent chemotherapy. 3. Abdominal wall abscess status post CT directed drainage with indwelling drain and on antibiotic therapy. 4. Discussion. Agree with current and ongoing management and I am grateful for the care provided. PLAN 1. Continue present management and would continue antibiotics and indwelling drain until there is complete clinical and radiographic resolution of this abscess. 2. She is to follow up with in our office to within one to two weeks after hospital discharge for reevaluation and to consider chemotherapy. MD PAULINE Miller/ROSEY /7:39 AM /7:52 AM
[2017-10-12 09:00] VITALS: BP 119/76; PULSE 79; RESP 18; TEMP 98.2; O2SAT 100
[2017-10-12] MEDS ORDERED: AUGM500T7 PO (13:59)
--- NOTE | 2017-10-12 14:07 | HHI.FF ---
Face to Face Verification Diagnosis: (1) Abdominal wall abscess (2) Leukopenia due to antineoplastic chemotherapy Home Health Nursing Order: Medical education I have seen patient Twila Yan on 10/12/17. My clinical findings support the need for the requested home health care services because: Limited ability to care for self Infection w/ risk of complications I certify that my clinical findings support that this patient is homebound because: Unsafe to leave home unassisted Pt has drain placed in abdominal wall; needs to be monitored by nursing periodically and changed when appropriate. Troy Mcgovern MD Oct 12, 2017 14:07
--- NOTE | 2017-10-12 15:33 | HHI.DS ---
Discharge Summary Admission Date Oct 08, 2017 at 18:00 Discharge Date: Oct 12, 2017 Admitting Diagnosis Abdominal mass (1) Abdominal wall abscess ICD Code: L02.211 - Cutaneous abscess of abdominal wall Status: Acute (2) Sepsis ICD Code: A41.9 - Sepsis, unspecified organism Status: Acute (3) Anemia ICD Code: D64.9 - Anemia, unspecified Status: Chronic (4) Leukopenia due to antineoplastic chemotherapy ICD Code: D70.1 - Agranulocytosis secondary to cancer chemotherapy; T45.1X5A - Adverse effect of antineoplastic and immunosuppressive drugs, initial encounter (5) Pelvic mass in female ICD Code: R19.00 - Intra-abdominal and pelvic swelling, mass and lump, unspecified site Status: Resolved Procedures IR drain placement Brief History - From Admission Ms. Yan is a pleasant 46 year old female with a history of probable ovarian cancer (malignant central pelvic mass) s/p chemotherapy who underwent a CT guided intra-abdominal abscess drainage on the advise of her gynecological Oncologist Dr. Dias on 10/08/2017. Patient was seen in the radiology department. At the time of this interview, patient denies any chest pain, shortness of breath, fever, chills. Patient underwent surgical intervention with regards to her pelvic mass in July 2017. Since July, following her surgery, she has been having abdominal pain. Work up indicated abdominal abscess. She was admitted in August and was discharged on 09/09/2017 on Levaquin and Clindamycin. Due to persistent abdominal discomfort and drainage from the periumbilical area, she was arranged to undergo CT guided biopsy. CBC/BMP: 10/12/17 0505 10/10/17 0933 Significant Findings Laboratory Tests Test 10/10/17 09:33 10/11/17 05:50 10/12/17 05:05 White Blood Count 2.4 TH/MM3 (4.0-11.0) 2.4 TH/MM3 (4.0-11.0) 2.5 TH/MM3 (4.0-11.0) Red Blood Count 3.79 MIL/MM3 (4.00-5.30) 3.44 MIL/MM3 (4.00-5.30) 3.30 MIL/MM3 (4.00-5.30) Hemoglobin 10.4 GM/DL (11.6-15.3) 9.3 GM/DL (11.6-15.3) 9.0 GM/DL (11.6-15.3) Hematocrit 31.5 % (35.0-46.0) 28.3 % (35.0-46.0) 27.0 % (35.0-46.0) Platelet Count 148 TH/MM3 (150-450) 136 TH/MM3 (150-450) 133 TH/MM3 (150-450) Lymphocytes (%) (Auto) 47.4 % (9.0-44.0) Monocytes (%) (Auto) 18.9 % (0.0-8.0) Neutrophils # (Auto) 0.8 TH/MM3 (1.8-7.7) Lymphocytes % 51 % (9-44) 84 % (9-44) 78 % (9-44) Monocytes % 15 % (0-8) 14 % (0-8) Neutrophils # (Manual) 0.7 TH/MM3 (1.8-7.7) 0.3 TH/MM3 (1.8-7.7) 0.2 TH/MM3 (1.8-7.7) Plasma Cells 1 % (0-0) Platelet Estimate LOW (NORMAL) LOW (NORMAL) LOW (NORMAL) Albumin 2.8 GM/DL (3.4-5.0) Calcium Level 8.2 MG/DL (8.5-10.1) Estimat Glomerular Filtration Rate 78 ML/MIN (>89) HDL Cholesterol 66.3 MG/DL (40.0-60.0) Neutrophils % (Manual) 11 % (16-70) 7 % (16-70) Platelet Morphology Comment ENLARGED (NORMAL) Imaging Last Impressions Abscess Drainage CT 10/08/17 0000 Signed Impressions: Service Date/Time: Sunday, October 08, 2017 16:20 - CONCLUSION: Uncomplicated CT guided drainage. Alfred Alcantara MD PE at Discharge AAOx3 NAD Lungs clear BL S1S2 RRR, no MRG abdomen soft, nt, nd no edema in lower extremities Foul smelling discharge in drain Hospital Course Patient was admitted, had drain placed in her right abdomen. Was started on appropriate antibiotics with infectious disease assistance. Patient remained afebrile throughout her entire hospitalization and was tolerating by mouth intake well. Her wound culture was growing mixed anaerobes. She was transitioned to oral antibiotics and cleared for discharge from general surgery standpoint. Patient was informed that she would have to follow up with interventional radiology as an outpatient, undergo repeat imaging to ensure resolution of the abscess, and then have her tube removed. She is to continue antibiotics for a relatively prolonged course that would span until 2 weeks after tube removal. Pt Condition on Discharge: Stable Discharge Disposition: Disch w/ Home Health Serv Discharge Time: > 30 minutes Discharge Instructions DIET: Follow Instructions for: Heart Healthy Diet Activities you can perform: Weight Bearing as [place] Follow up Referrals: [facility] with Ngozi Hardin MD PCP Follow-up New Orders: CT Abdomen/Pelvis W Contrast - 2 Weeks New Medications: Amoxicillin-Clavulanate (Augmentin) 500-125 mg Tab 500 MG PO Q8H for Infection, #42 TAB 1 Refill Continued Medications: Cyclobenzaprine (Flexeril) 10 Mg Tab 10 MG PO DAILY for Muscle Spasm, #90 TAB 0 Refills Hydrocodone-Acetaminophen ([place]) 7.5-325 mg Tab 1 TAB PO every 6 hours PRN for pain, #40 TAB 0 Refills Troy Mcgovern MD Oct 12, 2017 15:33
== END 2017-10-12 17:30 | disposition home or self-care (01) | DRG 854 ==
LOC: HROP 13:05 → HRIP 13:06 → HROP 17:59 → N07A 18:00 → HCIN 10-11 18:05
PROVIDERS: ADMIT Hospitalist; ATTEND Hospitalist
PROC: 0W9F3ZX Drainage of Abdominal Wall, Percutaneous Approach, Diagnostic (ICD-10-PCS; principal; 2017-10-08)
DX: A41.9 Sepsis, unspecified organism (principal); L02.211 Cutaneous abscess of abdominal wall; D70.1 Agranulocytosis secondary to cancer chemotherapy; D64.9 Anemia, unspecified; T45.1X5A Adverse effect of antineoplastic and immunosuppressive drugs, initial encounter; Z90.710 Acquired absence of both cervix and uterus; Z85.43 Personal history of malignant neoplasm of ovary; Z98.84 Bariatric surgery status
CPT/HCPCS: 10160; 49180; 75989; 80048; 80053; 80061; 82728; 83540; 83550; 84100; 85007; 85025; 85027; 87070; 87185; 87205; C1729; C1769; J1642; J2250; J2280; J2405; J2543; J3010

== ENCOUNTER 2017-10-28 06:58 | Day surgery (SDC) | payer OTHER ==
[~2017-10-28] VITALS: Ht 172.7 cm; Wt 116.2 kg
[~2017-10-28 06:58] MED LIST changes: +AUGM500T7 PO; -LEVA750T9 PO; +LORA-392 PO
[2017-10-28] MEDS ORDERED: SODIUM CHLORID 0.9% 500 ML IV PRN (07:30)
[2017-10-28] MEDS ORDERED: POVIDONE IODINE 5% (ANTISEPSIS KIT) 4 APPLICATIONS EACH NARE PRN (07:30)
[2017-10-28] MEDS ORDERED: AMPICILLIN 1 GM/NS 100 ML IV SCH ×2 (07:30)
[2017-10-28] MEDS ORDERED: CHLORHEXIDINE GLUCONATE 2 % 1 PACK (2 CLOTHS) TOPICAL PRN (07:30)
[2017-10-28] MEDS ORDERED: METOPROLOL TARTRATE 25 MG TAB PO PRN (07:30)
[2017-10-28] MEDS ORDERED: GENTAMICIN INJ 240 MG in SODIUM CHLORIDE 0.9% INJ 100 ML IV SCH (07:30)
[2017-10-28] MEDS ORDERED: LACTATED RINGER'S 1000 ML IV PRN (07:30)
[2017-10-28 09:11] LABS: AUTOMATED NEUTROPHIL # 2.7 TH/MM3 (1.8-7.7); BASOPHIL % 0.5 % (0.0-2.0); EOSINOPHIL % 0.4 % (0.0-4.0); HEMATOCRIT 28.7 % (35.0-46.0); HEMO FLAGS DIFF FINAL; LYMPH % 31.1 % (9.0-44.0); LYMPHOCYTE # 1.5 TH/MM3 (1.0-4.8); MEAN CELL VOLUME 84.1 FL (80.0-100.0); MEAN CORPUSCULAR HEMOGLOBIN 27.1 PG (27.0-34.0); MEAN CORPUSCULAR HGB CONC 32.3 % (32.0-36.0); MONO % 11.6 % (0.0-8.0); NEUT % 56.4 % (16.0-70.0); PLATELET COUNT 387 TH/MM3 (150-450); RED BLOOD COUNT 3.41 MIL/MM3 (4.00-5.30); RED CELL DISTRIBUTION WIDTH 18.7 % (11.6-17.2); WHITE BLOOD COUNT 4.8 TH/MM3 (4.0-11.0)
[2017-10-28] MEDS ORDERED: SODIUM CHLORIDE 0.9% FLUSH 10 ML FLUSH IV FLUSH PRN (09:15)
[2017-10-28] MEDS ORDERED: *ONDANSETRON 4 MG VIAL PERIprocedural Use ONLY ONE (11:05)
[2017-10-28] MEDS ORDERED: IOHEXOL 350 MG/ML 50 ML BTL (for RAD DIAG) IVCONTRAST ONE (11:06)
[2017-10-28] MEDS ORDERED: *MEPERIDINE 25 MG INJ VIAL PERIprocedural Use ONLY ONE (11:16)
--- NOTE | 2017-10-28 11:28 | PD.OP ---
Operative Report Date of Surgery: Oct 28, 2017 Preoperative Diagnosis: History of right ureteral injury status post repair with retained right ureteral stent Postoperative Diagnosis: Same Procedure: Cystoscopy with right double-J stent removal, right retrograde pyelogram Anesthesia: ADELINAA Surgeon: Alex Mcelroy Voice Over Announcer(s): None Resident Surgeon: None Operation and Findings: 46-year-old female with history of ovarian cancer who underwent resection of a pelvic mass which was adherent to the right ureter. During the resection the right ureter was cut and patient underwent a right double-J stent insertion followed by re-anastomosis of her right ureter. 6 weeks postoperatively showed underwent cystoscopy with a retrograde pullout study which did so some pooling with delay of contrast drainage at the anastomosis site. The ureter was then dilated with Microvasive ureteral dilators and a new stent was then replaced. She presents today again to undergo cystoscopy retrograde study with possible stent removal. Risk and benefits were discussed preoperatively and she was willing to proceed. The patient was brought to the operating room and identified by myself as Twila Yan. She is placed in the dorsal lithotomy position, prepped and draped in usual sterile fashion, received preprocedure antibiotics and general endotracheal tube anesthesia was administered. When he 2 Greek cystoscope was inserted in the bladder and the right ureteral stent was identified. Using the alligator grasper the stent was grasped and removed and brought out to the urethral meatus. A 0.35 sensor wire was then passed through the ureteral stent and then the stent was removed over the wire. A 5 Greek opening catheter was inserted into the distal right ureter and retrograde pyelogram was performed. Contrast was noted to drain promptly from the right ureter without evidence of pooling. Decision was made then to leave the stent out and the bladder was evacuated she was awoken and extubated and transferred to recovery in stable condition. She tolerated the procedure well. Please send a copy of this report to Dr. Ngozi Hardin. Alex Mcelroy DO Oct 28, 2017 11:28
[2017-10-28 11:50] VITALS: BP 103/66; PULSE 58; RESP 18; TEMP 97.6; O2SAT 97
[2017-10-28] MEDS ORDERED: GLYCOPYRROLATE 1 MG/5 ML SYRINGE IV PUSH ONE (12:00)
[2017-10-28] MEDS ORDERED: LIDOCAINE HCL 1% PF 5 ML SYRINGE OTHER ONE (12:00)
[2017-10-28] MEDS ORDERED: MIDAZOLAM HCL 2 MG/2 ML VIAL IV ONE (12:00)
[2017-10-28] MEDS ORDERED: NEOSTIGMINE 5 MG/5 ML SYRINGE IV PUSH ONE (12:00)
[2017-10-28] MEDS ORDERED: PROPOFOL 200 MG/20 ML AMP IV ONE (12:00)
[2017-10-28] MEDS ORDERED: ROCURONIUM INJ 50 MG/5 ML SYRINGE IV PUSH ONE (12:00)
[2017-10-28] MEDS ORDERED: ONDANSETRON HCL 4 MG/2 ML VIAL IV PUSH ONE ×2 (12:00→16:15)
[2017-10-28] MEDS ORDERED: SODIUM CHLOR 0.9% 1000 ML INJ 1,000 ML IV SCH (12:30)
[2017-10-28] MEDS ORDERED: DO NOT ADM ANY ANTICOAGULANT DRUGS PRN (13:00)
[2017-10-28] MEDS ORDERED: LIDOCAINE 1%/EPINEPHrine 1:100,000 SOLN 20 ML VIAL ONE (13:35)
[2017-10-28] MEDS ORDERED: MIDAZOLAM HCL 2 MG/2 ML VIAL ONE (13:39)
[2017-10-28 15:20] VITALS: BP 90/59; PULSE 65; RESP 18; TEMP 97.4; O2SAT 100
--- NOTE | 2017-10-28 15:29 | PD.RAD ---
Post CT Procedure Prog Note Pre Procedure Diagnosis: (1) Abdominal wall abscess Post Procedure Diagnosis: (1) Abdominal wall abscess Procedure Date: Oct 28, 2017 Supervising Radiologist: Herminio Trejo Anesthesia: Local, Analgesia, Conscious Sedation Plan of Activity Patient to Unit: [facility]OP[facility] Patient Condition: Good See PACS Report for procedural detail/treatment Drainage Procedure Procedure 1 Imaging Guidance: CT Procedure Type: Abscess Drainage (periumbilical) Drainage: Suction (pleur-vac) Fluid Description: Purulent Findings: Small collection decompressing through umbilicus. 8Fr locking cath placed. Injected with contrast. No communication to bowel. Drains freely to umbilicus. Flushed with Betadine solution. Herminio Trejo MD Oct 28, 2017 15:29
[2017-10-28 15:45] VITALS: BP 111/74; PULSE 76; RESP 18; O2SAT 98
[2017-10-28 16:15] VITALS: BP 101/64; PULSE 79; RESP 18; O2SAT 99
--- NOTE | 2017-10-29 08:31 | RADRPT ---
EXAM DATE/TIME: 10/28/2017 14:00 [facility] COMPARISON: CT ASSISTED ABSCESS DRAIN, October 08, 2017, 16:20. INDICATIONS : Abdominal abscess. SEDATION TIME: 30 minutes MEDICATION(S): 1.) 3 mg midazolam (Versed) IV 2.) 175 mcg fentanyl (Sublimaze) IV DEVICE(S): 1.) micropuncture introducer 2.) 8 Fr Skater MEDICAL HISTORY : Ovarian cancer. SURGICAL HISTORY : Gastric bypass. Cholecystectomy. Hysterectomy. ENCOUNTER: Initial ACUITY: 1 day PAIN SCORE: 3/10 LOCATION: periumbilical PROCEDURE: PROCEDURE : 1. CT guided drainage of the periumbilical abscess 2. Contrast injection through drainage catheter with CT imaging. 3. Conscious sedation with continuous EKG and oximetry monitoring. The risks, benefits and alternatives to the procedure were explained and verbal and written consent w as obtained. Using automated exposure control and adjustment of the mA and/or kV according to patient size, radiation dose was kept as low as reasonably achievable to obtain optimal diagnostic quality i mages. The site was prepped in sterile fashion. Full sterile technique was used, including cap, ma sk, sterile gloves and gown and a large sterile sheet. Hand hygiene and 2% chlorhexidine and/or beta dine/alcohol prep was utilized per protocol for cutaneous antisepsis. The skin and subcutaneous tiss ues were infiltrated with local anesthetic solution. DICOM format image data is available electronic ally for review and comparison. Using CT guidance the prescribed site was localized. The patient has a persistent incisional abscess in the periumbilical distribution which appears to be spontaneously draining through the umbilicus. Previous drainage catheter was inadvertently dislodged. Because the collection is spontaneously decom pressing, the abscess cavity was quite diminutive. Access to the cavity was obtained with a micropunc ture needle through which the 018 wire was placed. The long, flexible 34 dilator was advanced over th e wire. The outer 4 Cambodian dilator curled in the collection, the 80 cm 035 Whitley wire was placed and the tract serially dilated to accommodate an 8 Cambodian skater catheter which was locked in position an d confirmed with CT. To exclude a possible fistula to regional bowel, contrast injection through the catheter was performe d. This showed the expected communication with the umbilicus but there was no contrast identified in the peritoneal cavity or regional bowel loops. Catheter was flushed with a small volume of Betadine s olution then placed into according drainage. The patient tolerated the procedure well and there were no complications. Conscious sedation was per formed with the prescribed dosages and duration as above in the presence of an independent trained ra diology nurse to assist in the monitoring of the patient. EKG and oximetry remained stable throughou t the procedure. The patient tolerated the procedure well and there were no complications. The patient was sent to pos t anesthesia recovery in stable condition. Of note, the tobacco weigher image shows some pelvocaliectasis of th e right renal collecting system. CONCLUSION: 1. Uncomplicated CT guided drainage. 2. Contrast injection through the catheter shows the expected communication with the umbilicus. There is no fistulous communication with the peritoneal cavity or regional bowel loops. 3. The tobacco weigher image of the abdomen does show some pelvocaliectasis and retained contrast in the right renal collecting system. Herminio Trejo MD on October 29, 2017 at 8:22 Board Certified Radiologist. This report was verified electronically.
== END 2017-10-28 16:59 | disposition home or self-care (01) ==
LOC: HSDC 06:58 → HRIP 11:54 → HSDC 16:59
PROVIDERS: ATTEND Urology
DX: S37.10XD Unspecified injury of ureter, subsequent encounter (principal); L02.211 Cutaneous abscess of abdominal wall
CPT/HCPCS: 00910; 52005; 75989; 85025; C1729; C1769; J0290; J1580; J1642; J2175; J2250; J2405; J2710; J3010; Q9967

== ENCOUNTER 2018-01-24 06:03 | Inpatient (IN) | payer OTHER ==
[~2018-01-24 06:03] MED LIST changes: +METO10TA PO; +ONDA8TAB7 PO
[2018-01-24] MEDS ORDERED: SODIUM CHLOR 0.9% 1000 ML INJ 1,000 ML IV SCH (06:10)
[2018-01-24] MEDS ORDERED: NALOXONE HCL 0.4 MG/ML AMP IV PUSH PRN ×2 (06:15→11:30)
[2018-01-24] MEDS ORDERED: SODIUM CHLORIDE 0.9% FLUSH 10 ML FLUSH IV FLUSH PRN ×2 (06:15→11:30)
[2018-01-24] MEDS ORDERED: LACTULOSE SYRUP 20 GM/30 ML CUP PO PRN (06:15)
[2018-01-24] MEDS ORDERED: ACETAMINOPHEN 325 MG TAB PO PRN (06:15)
[2018-01-24] MEDS ORDERED: ONDANSETRON HCL 4 MG/2 ML VIAL IVP PRN (06:15)
[2018-01-24] MEDS ORDERED: BISACODYL 10 MG SUPP RECTAL PRN (06:15)
[2018-01-24] MEDS ORDERED: MAGNESIUM HYDROXIDE SUSP 30 ML CUP PO PRN ×2 (06:15→11:30)
[2018-01-24] MEDS ORDERED: SENNOSIDES 8.6 MG TAB PO PRN ×2 (06:15→11:30)
[2018-01-24] MEDS ORDERED: SODIUM CHLORIDE 0.9% FLUSH 10 ML FLUSH IV FLUSH SCH (09:00)
[2018-01-24 09:26] VITALS: BP 101/59; PULSE 80; RESP 17; TEMP 99.2; O2SAT 100
[2018-01-24 10:52] VITALS: BP 108/53; PULSE 96; RESP 18; O2SAT 94
--- NOTE | 2018-01-24 10:58 | HHI.HP ---
HPI Service [facility] Hospitalists Primary Care Physician Non-Staff Admission Diagnosis Diagnoses: Chief Complaint: Weakness, fevers, chills Travel History International Travel<30 Days: No Contact w/Intl Traveler <30 Da: No Traveled to Known Affected Are: No Sepsis Criteria SIRS Criteria (2 or more): Temp > 100.9 or < 96.8, Heart rate over 90 Sepsis Criteria (SIRS+source): Infect source susp/known Criteria Outcome: Meets sepsis criteria History of Present Illness This is a 47-year-old female with past medical history significant for ovarian cancer currently on chemotherapy and under the care of Dr. Hardin who presents to [facility] complaining of generalized weakness, fevers, chills, fatigue as well as headaches. Patient initially presented to [facility] at the [facility] where she was found to have a urinary tract infection. Patient's temperature over at [facility] in the [facility] upon review of records shows that went up to 102.9. The patient denies cough, diarrhea, abdominal pain, nausea, dysuria, chest pain, shortness of breath. Review of Systems As per HPI, other systems reviewed by me and negative. Past Family Social History Past Medical History 1. Abdominal wall abscess. 2. Anemia. 3. 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 4. History of ovarian cancer and borderline ovarian tumor status post neoadjuvant chemotherapy and expiratory laparotomy. 5. Depression. 6. Anxiety. Past Surgical History Cholecystectomy Partial hysterectomy Gastric bypass Ankle surgery Expiratory laparotomy Reported Medications Reported Meds & Active Scripts Active [place] (Hydrocodone-Acetaminophen) 7.5-325 mg Tab 1 Tab PO EVERY 6 HOURS PRN Reported Ondansetron (Ondansetron HCl) 8 Mg Tab 8 Mg PO TID Metoclopramide (Metoclopramide HCl) 10 Mg Tab 10 Mg PO TIDAC Ativan (Lorazepam) 0.5 Mg Tab 0.5 Mg PO DAILY PRN Flexeril (Cyclobenzaprine HCl) 10 Mg Tab 10 Mg PO DAILY Allergies: Coded Allergies: No Known Allergies (Verified Allergy, Unknown, 01/24/18) Active Ordered Medications Current Medications Medications (Trade) Dose Ordered Sig/Joan Route Start Time Stop Time Status Last Admin Sodium Chloride 1,000 ml @ 100 mls/hr Q10H IV 01/24/18 06:10 (NS Flush) 2 ml UNSCH PRN IV FLUSH 01/24/18 06:15 (NS Flush) 2 ml BID IV FLUSH 01/24/18 09:00 (Tylenol) 650 mg Q4H PRN PO 01/24/18 06:15 (Zofran Inj) 4 mg Q6H PRN IVP 01/24/18 06:15 (Narcan Inj) 0.4 mg UNSCH PRN IV PUSH 01/24/18 06:15 (Milk Of Magnesia Liq) 30 ml Q12H PRN PO 01/24/18 06:15 (Senokot) 17.2 mg Q12H PRN PO 01/24/18 06:15 (Dulcolax Supp) 10 mg DAILY PRN RECTAL 01/24/18 06:15 (Lactulose Liq) 30 ml DAILY PRN PO 01/24/18 06:15 Family History Mother had unknown cancer. Father - throat cancer. Social History Denies using tobacco, alcohol or illicit drugs. Physical Exam Vital Signs Vital Signs Date Time Temp Pulse Resp B/P (MAP) Pulse Ox O2 Delivery O2 Flow Rate FiO2 01/24/18 09:26 99.2 80 17 101/59 (73) 100 Room Air Physical Exam GENERAL: This is a well-nourished, well-developed patient, in no apparent distress. SKIN: No rashes, ecchymoses or lesions. Cool and dry. HEAD: Atraumatic. Normocephalic. No temporal or scalp tenderness. EYES: Pupils equal round and reactive. Extraocular motions intact. No scleral icterus. No injection or drainage. ENT: Nose without bleeding, purulent drainage or septal hematoma. Throat without erythema, tonsillar hypertrophy or exudate. Uvula midline. Airway patent. NECK: Trachea midline. No JVD or lymphadenopathy. Supple, nontender, no meningeal signs. CARDIOVASCULAR: Regular rate and rhythm without murmurs, gallops, or rubs. RESPIRATORY: Clear to auscultation. Breath sounds equal bilaterally. No wheezes , rales, or rhonchi. GASTROINTESTINAL: Abdomen soft, non-tender, nondistended. No hepato-splenomegaly , or palpable masses. No guarding. MUSCULOSKELETAL: Extremities without clubbing, cyanosis, or edema. No joint tenderness, effusion, or edema noted. No calf tenderness. Negative Homans sign bilaterally. NEUROLOGICAL: Awake and alert. Cranial nerves II through XII intact. Motor and sensory grossly within normal limits. Five out of 5 muscle strength in all muscle groups. Normal speech. Imaging Chest x-ray reviewed by me shows no acute cardiopulmonary disease. Caprini VTE Risk Assessment Caprini VTE Risk Assessment: Mod/High Risk (score >= 2) Caprini Risk Assessment Model Point Value = 1 Point Value = 2 Point Value = 3 Point Value = 5 Age 41-60 Minor surgery BMI > 25 kg/m2 Swollen legs Varicose veins or History of unexplained or recurrent spontaneous Oral contraceptives or hormone replacement Sepsis (< 1 month) Serious lung disease, including pneumonia (< 1 month) Abnormal pulmonary function Acute myocardial infarction Congestive heart failure (< 1 month) History of inflammatory bowel disease Medical patient at bed rest Age 61-74 Arthroscopic surgery Major open surgery (> 45 min) Laparoscopic surgery (> 45 min) Malignancy Confined to bed (> 72 hours) Immobilizing plaster cast Central venous access Age >= 75 History of VTE Family history of VTE Factor V Leiden Prothrombin [id number] Lupus anticoagulant Anticardiolipin antibodies Elevated serum homocysteine Heparin-induced thrombocytopenia Other congenital or acquired thrombophilia Stroke (< 1 month) Elective arthroplasty Hip, pelvis, or leg fracture Acute spinal cord injury (< 1 month) Prophylaxis Regimen Total Risk Factor Score Risk Level Prophylaxis Regimen 0-1 Low Early ambulation 2 Moderate Order ONE of the following: *Sequential Compression Device (SCD) *Heparin 5000 units SQ BID 3-4 Higher Order ONE of the following medications: *Heparin 5000 units SQ TID *Enoxaparin/Lovenox 40 mg SQ daily (WT < 150 kg, CrCl > 30 mL/min) *Enoxaparin/Lovenox 30 mg SQ daily (WT < 150 kg, CrCl > 10-29 mL/min) *Enoxaparin/Lovenox 30 mg SQ BID (WT < 150 kg, CrCl > 30 mL/min) AND/OR *Sequential Compression Device (SCD) 5 or more Highest Order ONE of the following medications: *Heparin 5000 units SQ TID (Preferred with Epidurals) *Enoxaparin/Lovenox 40 mg SQ daily (WT < 150 kg, CrCl > 30 mL/min) *Enoxaparin/Lovenox 30 mg SQ daily (WT < 150 kg, CrCl > 10-29 mL/min) *Enoxaparin/Lovenox 30 mg SQ BID (WT < 150 kg, CrCl > 30 mL/min) AND *Sequential Compression Device (SCD) Assessment and Plan Problem List: (1) Sepsis ICD Code: A41.9 - Sepsis, unspecified organism Plan: Sepsis due to uti - present on admission - patient with fever and tachycardia. admit to Med/surg floor IV fluids IV Zosyn fu uruine culture check blood cultures (2) UTI (urinary tract infection) ICD Code: N39.0 - Urinary tract infection, site not specified Plan: As above. (3) Weakness ICD Code: R53.1 - Weakness Plan: Due to sepsis due to uti. fu urine culture IV zosyn (4) H/O ovarian cancer ICD Code: Z85.43 - Personal history of malignant neoplasm of ovary Plan: Currently on chemotherapy. Per patient supposed to get next dose on wednesday. Consult MESSAGING ARCHITECT/onc - Dr Hardin. Assessment and Plan DVT proph: Scd's, lovenox sq Code Status Full code Discussed Condition With RN. Physician Certification 2 Midnight Certification Type: Admission for Inpatient Services Order for Inpatient Services The services are ordered in accordance with Medicare regulations or non- Medicare payer requirements, as applicable. In the case of services not specified as inpatient-only, they are appropriately provided as inpatient services in accordance with the 2-midnight benchmark. Estimated LOS (days): 2 days is the estimated time the patient will need to remain in the hospital, assuming treatment plan goals are met and no additional complications. Post-Hospital Plan: Not yet determined Problem Qualifiers (1) UTI (urinary tract infection): Qualified Codes: N30.00 - Acute cystitis without hematuria Demarcus Lara MD Jan 24, 2018 10:58
[2018-01-24] MEDS: SODIUM CHLOR 0.9% 1000 ML INJ 1,000 ML IV SCH ×2 (12:03→21:53)
[2018-01-24] MEDS: PIPERACIL-TAZO 4.5 GM PREMIX 100 ML IV SCH ×2 (12:04→17:16)
[2018-01-24 13:00] VITALS: BP 122/59; PULSE 87; RESP 18; TEMP 100.9; O2SAT 90
[2018-01-24] MEDS: ENOXAPARIN SODIUM 40 MG/0.4 ML SYRINGE SQ SCH (13:24)
[2018-01-24] MEDS: ACETAMINOPHEN 325 MG TAB PO PRN ×2 (13:24→21:52)
--- NOTE | 2018-01-24 15:55 | PD.CONS ---
History of Present Illness Service lock tender/onc Consult Requested By Reason for Consult ovarian cancer septic Primary Care Physician Non-Staff Diagnoses: (1) Ovarian cancer (2) Sepsis History of Present Illness This is a 47 year old known to lock tender/onc for ovarian cancer. She is currently being treated with neoadjuvant chemotherapy Taxol and Carboplatin she had cycle #6 on 01/05/18. She had a follow up appt with Dr. Hardin for s/p 6 cycles of chemo on 01/26/18. She reports over the weekend she started to feel feverish with chills, headache and generalized fatigue. It was reported in ER note that her temp went as high as 102. CXR negative, blood cultures pending but started on IV abx for UTI. Patient is seen in consultation for above findings. Review of Systems Constitutional: COMPLAINS OF: Fatigue, Fever, Change in appetite Musculoskeletal: COMPLAINS OF: Joint pain Past Family Social History Allergies: Coded Allergies: No Known Allergies (Verified Allergy, Unknown, 01/24/18) Past Medical History Abdominal wall abscess. Anemia. 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 History of ovarian cancer and borderline ovarian tumor status post neoadjuvant chemotherapy and expiratory laparotomy 08/09/17. Depression. Anxiety Cholecystectomy Partial hysterectomy Gastric bypass Ankle surgery Past Surgical History X lap resection of large pelvic mass ankle surgery Reported Medications [place] (Hydrocodone-Acetaminophen) 7.5-325 mg Tab 1 Tab PO EVERY 6 HOURS PRN Ondansetron (Ondansetron HCl) 8 Mg Tab 8 Mg PO TID Metoclopramide (Metoclopramide HCl) 10 Mg Tab 10 Mg PO TIDAC Ativan (Lorazepam) 0.5 Mg Tab 0.5 Mg PO DAILY PRN Flexeril (Cyclobenzaprine HCl) 10 Mg Tab 10 Mg Active Ordered Medications Current Medications Sodium Chloride 1,000 ml @ 100 mls/hr Q10H IV Last administered on 01/24/18at 10 :50; Start 01/24/18 at 06:10; Stop 01/24/18 at 12:00; Status DC Sodium Chloride (NS Flush) 2 ml UNSCH PRN IV FLUSH FLUSH AFTER USING IV ACCESS ; Start 01/24/18 at 06:15; Stop 01/24/18 at 12:01; Status DC Sodium Chloride (NS Flush) 2 ml BID IV FLUSH Last administered on 01/24/18at 10: 50; Start 01/24/18 at 09:00; Stop 01/24/18 at 12:01; Status DC Acetaminophen (Tylenol) 650 mg Q4H PRN PO TEMP > 100.4; Start 01/24/18 at 06:15 ; Stop 01/24/18 at 12:03; Status DC Ondansetron HCl (Zofran Inj) 4 mg Q6H PRN IVP NAUSEA OR VOMITING; Start at 06:15; Stop 01/24/18 at 12:01; Status DC Naloxone HCl (Narcan Inj) 0.4 mg UNSCH PRN IV PUSH SEE LABEL COMMENTS; Start at 06:15; Stop 01/24/18 at 12:01; Status DC Magnesium Hydroxide (Milk Of Magnesia Liq) 30 ml Q12H PRN PO Mild constipation ; Start 01/24/18 at 06:15; Stop 01/24/18 at 12:02; Status DC Sennosides (Senokot) 17.2 mg Q12H PRN PO Moderate constipation; Start 01/24/18 at 06:15; Stop 01/24/18 at 12:02; Status DC Bisacodyl (Dulcolax Supp) 10 mg DAILY PRN RECTAL SEVERE CONSITIPATION/ IF NPO ; Start 01/24/18 at 06:15 Lactulose (Lactulose Liq) 30 ml DAILY PRN PO SEVERE CONSITIPATION/ IF PO; Start 01/24/18 at 06:15 Sodium Chloride 1,000 ml @ 100 mls/hr Q10H IV Last administered on 01/24/18at 12 :03; Start 01/24/18 at 12:00 Sodium Chloride (NS Flush) 2 ml UNSCH PRN IV FLUSH FLUSH AFTER USING IV ACCESS ; Start 01/24/18 at 11:30 Sodium Chloride (NS Flush) 2 ml BID IV FLUSH ; Start 01/24/18 at 21:00 Acetaminophen (Tylenol) 650 mg Q4H PRN PO TEMP > 100.4 Last administered on 01/24at 13:24; Start 01/24/18 at 11:30 Ondansetron HCl (Zofran Inj) 4 mg Q6H PRN IVP NAUSEA OR VOMITING; Start at 11:30 Enoxaparin Sodium (Lovenox Inj) 40 mg Q24H SQ Last administered on 01/24/18at 13: 24; Start 01/24/18 at 13:00 Naloxone HCl (Narcan Inj) 0.4 mg UNSCH PRN IV PUSH SEE LABEL COMMENTS; Start at 11:30 Magnesium Hydroxide (Milk Of Wallace Montez) 30 ml Q12H PRN PO Mild constipation ; Start 01/24/18 at 11:30 Sennosides (Senokot) 17.2 mg Q12H PRN PO Moderate constipation; Start 01/24/18 at 11:30 Piperacillin Sod/ Tazobactam Sod 100 ml @ 200 mls/hr Q6H IV Last administered on 01/24/18at 12:04; Start 01/24/18 at 12:00 Cyclobenzaprine HCl (Flexeril) 10 mg DAILY PO ; Start 01/25/18 at 09:00; Status UNV Acetaminophen/ Hydrocodone Bitart ([place] 7.5-325 Mg) 1 tab Q4HR PRN PO PAIN SCALE 1 TO 10; Start 01/24/18 at 15:30; Status UNV Physical Exam Vital Signs Vital Signs Date Time Temp Pulse Resp B/P (MAP) Pulse Ox O2 Delivery O2 Flow Rate FiO2 01/24/18 13:06 01/24/18 10:52 96 18 94 Room Air 01/24/18 09:26 99.2 Vital Signs Date Time Temp Pulse Resp B/P (MAP) Pulse Ox O2 Delivery O2 Flow Rate FiO2 01/24/18 13:06 01/24/18 10:52 96 18 108/53 (71) 94 Room Air 01/24/18 09:26 99.2 80 17 101/59 (73) 100 Room Air Physical Exam GENERAL: This is a well-nourished, well-developed patient, in no apparent distress. SKIN: No rashes, ecchymoses or lesions. Cool and dry. HEAD: Atraumatic. Normocephalic. No temporal or scalp tenderness. EYES: Pupils equal round and reactive. Extraocular motions intact. No scleral icterus. No injection or drainage. CARDIOVASCULAR: Regular rate and rhythm without murmurs, gallops, or rubs. RESPIRATORY: Clear to auscultation. Breath sounds equal bilaterally. No wheezes , rales, or rhonchi. GASTROINTESTINAL: Abdomen soft, non-tender, nondistended. midline surgical site is completely healed, no drainage MUSCULOSKELETAL: Extremities without clubbing, cyanosis, or edema. Negative Homans sign bilaterally. NEUROLOGICAL: Awake and alert. Motor and sensory grossly within normal limits. Normal speech. Laboratory Laboratory Tests Test 01/24/18 11:50 Lactic Acid Level 0.6 mmol/L Laboratory Tests Test 01/24/18 11:50 Lactic Acid Level 0.6 Date/Time Source Procedure Growth Status 01/24/18 12:47 Blood Peripheral Aerobic Blood Culture Pending Received 01/24/18 12:47 Blood Peripheral Anaerobic Blood Culture Pending Received Assessment and Plan Problem List: (1) Sepsis ICD Codes: A41.9 - Sepsis, unspecified organism Plan: Piperacillin Sod/ Tazobactam Sod 100 ml Q6H IV blood cultures pending urine + CXR negative continue supportive care and monitor temp discharge per medicine team thank you for assistance with Ms. Guevara (2) Ovarian cancer ICD Codes: C56.9 - Malignant neoplasm of unspecified ovary Plan: s/p 6 cycles of taxol and carboplatin IV chemo + neulasta for stem cell support as pt's ANC dropped to 300 after cycle #2 will continue IV chemo for at least 2 more cycles once discharged from hospital Discussed Condition With patient Dr. Hardin and he is in agreement with plan of care. Problem Qualifiers (1) Ovarian cancer: Qualified Codes: C56.9 - Malignant neoplasm of unspecified ovary (2) Sepsis: Qualified Codes: A41.9 - Sepsis, unspecified organism (3) Sepsis: Qualified Codes: A41.9 - Sepsis, unspecified organism Wong Treadwell Jan 24, 2018 15:55
[2018-01-24 16:00] VITALS: BP 101/55; PULSE 90; RESP 18; TEMP 100.9; O2SAT 95
[2018-01-24] MEDS: ACETAMINOPHEN/HYDROcodone 325 MG/7.5 MG TAB PO PRN (16:25)
--- NOTE | 2018-01-24 16:44 | MB ---
cc: Ngozi Hardin MD, Rolando 0 MD Thomas, Shawn W DO Gamenthaler, Andrew W MD DATE OF CONSULT: 01/24/2018 PHYSICIAN REQUESTING CONSULTATION: Demarcus Linares MD REASON FOR CONSULTATION: Ovarian cancer, ongoing chemotherapy. REASON FOR ADMISSION: Febrile illness. The patient is seen. She is counseled by me, her findings are reviewed, she is examined by me in conjunction with our nurse practitioner (Wong Treadwell). I agree with her findings, assessment, and plan of care. HISTORY OF PRESENT ILLNESS: This is a 47-year-old female whose recent symptomatology is that of failure to thrive, chills, fever reportedly greater than 102 degrees, decreased oral intake, decreased appetite, and headache which has been going on for several days to the point where she felt bad enough that she presented to the emergency room and is now admitted. 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 Biopsy of the mass confirmed malignancy. She had an elevated CA-125. She was treated with 2-3 cycles of Taxol and carboplatin. The CA-125 declined modestly, after which it plateaued, so decision was made to proceed with surgery. The mass was resected. 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 The mass was removed. It was extensively adherent to adjacent structures. The tumor was pressing on or wrapped around the right ureter segmentally, the ureter was disrupted, the tumor was resected and the ureter was repaired with end-to-end anastomosis with an indwelling stent from which she has apparently healed. Postop, she had problems with an abdominal wall fluid collection and a draining sinus through the umbilicus that drained for many weeks. She had in-and-out drainage by interventional radiology, but with persistence of symptoms and she was treated with antibiotics and then she had an indwelling drain. The combination of these things eventually allowed for the defect to close over and she has not had any drainage or discharge from the abdominal wound or umbilicus now in several weeks. The working premise of this admission is possible urosepsis, as she had a urinalysis that was abnormal. Urine had moderate occult blood, positive for urine nitrite, small leukocyte esterase, there were up to 50 white blood cells and few bacteria. Cultures are sent and results are pending. She was started on antibiotics. Additionally, there is a possibility of a viral illness with her symptomatology, but the original assessments for her influenza screening are negative, influenza A and B negative, and group A strep screen negative. PAST MEDICAL HISTORY, SURGICAL HISTORY, FAMILY HISTORY, MEDICATIONS, REVIEW OF SYSTEMS, ALLERGIES, SOCIAL HISTORY: Are all as outlined in the chart as documented. They are reviewed. I have nothing additional to add other than as mentioned in the history of present illness. REVIEW OF SYSTEMS: She has not had an upset GI system, no diarrhea, no abdominal pain, no nausea or vomiting other than just generalized feeling poorly with decreased appetite. OBJECTIVE: She is not neutropenic. White count 10.6. Platelets are a bit low, probably due to chemotherapy at 76,000. H and H are 9.5 and 30. Electrolytes, BUN and creatinine are 13 and 1.0, only subtle elevation of her transaminases, serum albumin is low at 2.9. PHYSICAL EXAMINATION: VITAL SIGNS: Her maximum temperature in the system is 102.9 degrees this morning at around 5:00 a.m., she is currently afebrile, pulse has been 80-94 when no longer febrile, respirations 16-18, blood pressure 101-113/53-62, O2 saturation is greater than 94%. GENERAL: She is alert and oriented x 3, although she does appear to feel poorly. Affect is a bit depressed. She is in no acute distress. SKIN: Warm, dry. Mucous membranes are not pale. EYES: Clear. Pupils equal, round, and reactive. ABDOMEN: Her abdomen is completely nontender, soft. The midline incision is well healed. There is no palpable induration, no fluid collection in the abdominal wall, no abnormality in the periumbilical region and that appears to have completely healed. PELVIC: Deferred, given relatively recent exam. EXTREMITIES: Nontender. NEUROVASCULAR: Intact. Time is spent in discussion with her, reviewing the findings in her case today, and I am sorry she is feeling poorly. I explained the aforementioned findings. I find that she does not have a febrile illness due to neutropenia from chemotherapy, as her white count remains normal. Chemotherapy certainly can contribute to her feeling poorly, but would not explain the febrile illness in this case. She is going to be given IV hydration, electrolyte replacement, supportive care, and has been started on broad-spectrum antibiotics, as there may be a bacterial urinary tract infection, possible ascending infection causing febrile illness. Supportive care and symptomatic management will be the best way to address this if it is a viral illness and that can be accomplished while she is here in the hospital as well. With respect to ongoing chemotherapy, her most recent CA-125, my understanding it has normalized at 10, which is excellent, but we will need to see her in the outpatient basis. We will likely encourage her to consider 2 additional treatments of chemotherapy when she is feeling better so that we have a total of 8 treatments, but we will talk in more detail about this when she is feeling better. Discussion ensued, questions were answered, she expressed good understanding and agreed. ASSESSMENT: 1. 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 2. Tumor completely removed with no other grossly or microscopically detected disease at the end of surgery. 3. Ongoing chemotherapy with findings as described above. 4. Admitted now for febrile illness. May be a combination of urinary tract infection with ascending infection, possibly with viral illness. PLAN: 1. Continue present management. Appreciate excellent medical care. 2. IV fluid hydration, correction of electrolytes, symptomatic management, supportive care. Pending culture results of urine and blood. 3. From an oncology standpoint, no further recommendations are changes at this time. Thank you for the consultation. We will follow along in her care. Ngozi Hardin MD KLM/TI , 04:11 PM , 04:42 PM
[2018-01-24 20:00] VITALS: BP 105/56; PULSE 96; RESP 17; TEMP 101.8; O2SAT 95
[2018-01-24] MEDS: SODIUM CHLORIDE 0.9% FLUSH 10 ML FLUSH IV FLUSH SCH (21:00)
[2018-01-25] VITALS: BP 112/60; PULSE 86; RESP 17; TEMP 99.7; O2SAT 95
[2018-01-25] MEDS: PIPERACIL-TAZO 4.5 GM PREMIX 100 ML IV SCH ×4 (00:20→17:15)
[2018-01-25] MEDS ORDERED: diphenhydrAMINE HCL 25 MG CAP PO SCH (00:30)
[2018-01-25 04:00] VITALS: BP 112/65; PULSE 82; RESP 17; TEMP 99; O2SAT 95
[2018-01-25] MEDS: ONDANSETRON HCL 4 MG/2 ML VIAL IVP PRN ×2 (06:38→20:23)
[2018-01-25] MEDS: ACETAMINOPHEN/HYDROcodone 325 MG/7.5 MG TAB PO PRN ×2 (06:38→20:24)
[2018-01-25 07:01] LABS: HEMATOCRIT 24.8 % (35.0-46.0); HEMOGLOBIN 8.4 GM/DL (11.6-15.3); MEAN CELL VOLUME 84.6 FL (80.0-100.0); MEAN CORPUSCULAR HEMOGLOBIN 28.7 PG (27.0-34.0); MEAN PLATELET VOLUME 9.1 FL (7.0-11.0); PLATELET COUNT 72 TH/MM3 (150-450); RED BLOOD COUNT 2.93 MIL/MM3 (4.00-5.30); RED CELL DISTRIBUTION WIDTH 24.2 % (11.6-17.2); WHITE BLOOD COUNT 6.9 TH/MM3 (4.0-11.0)
[2018-01-25 07:31] LABS: CALCIUM 7.9 MG/DL (8.5-10.1); CREATININE 0.78 MG/DL (0.50-1.00)
[2018-01-25 07:45] LABS: BANDS 12 % (0-6); LYMPHOCYTES 9 % (9-44); MONOCYTES 14 % (0-8); NEUTROPHIL # MANUAL DIFF 5.3 TH/MM3 (1.8-7.7); POLYS (SEG NEUTROPHILS) 65 % (16-70)
[2018-01-25 08:00] VITALS: BP 114/57; PULSE 92; RESP 16; TEMP 102.6; O2SAT 94
[2018-01-25] MEDS: SODIUM CHLORIDE 0.9% FLUSH 10 ML FLUSH IV FLUSH SCH ×2 (08:29→20:25)
[2018-01-25] MEDS: CYCLOBENZAPRINE HCL 10 MG TAB PO SCH (08:30)
[2018-01-25] MEDS: ACETAMINOPHEN 325 MG TAB PO PRN (08:30)
[2018-01-25] MEDS: SODIUM CHLOR 0.9% 1000 ML INJ 1,000 ML IV SCH ×2 (08:30→17:15)
[2018-01-25] MEDS: ENOXAPARIN SODIUM 40 MG/0.4 ML SYRINGE SQ SCH (11:53)
[2018-01-25 12:00] VITALS: BP 88/54; PULSE 75; RESP 16; TEMP 96.5; O2SAT 94
--- NOTE | 2018-01-25 12:51 | HHI.PR ---
Subjective Remarks [facility] - Microbiology called floor- blood culture + gram negative organism patient awake and alert T max 102.6 had fever/chills earlier denies any nausea or flank pain or urinary symptoms at all no gross hematuria no vaginal discharge she denies history of frequent UTI she just completed chemotherapy 01/19 check BP- 99/60- states baseline Objective Vitals Vital Signs Date Time Temp Pulse Resp B/P (MAP) Pulse Ox O2 Delivery O2 Flow Rate FiO2 01/25/18 12:00 96.5 75 16 88/54 (65) 94 01/25/18 08:00 102.6 92 16 114/57 (76) 94 01/25/18 04:00 99.0 82 17 112/65 (81) 95 01/25/18 00:00 99.7 86 17 112/60 (77) 95 01/24/18 20:00 101.8 96 17 105/56 (72) 95 01/24/18 16:00 100.9 90 18 101/55 (70) 95 01/24/18 13:06 01/24/18 13:00 100.9 87 18 122/59 (80) 90 I/O 01/24/18 01/24/18 01/24/18 01/25/18 01/25/18 01/25/18 07:00 15:00 23:00 07:00 15:00 23:00 Intake Total 100 ml 240 ml Balance 100 ml 240 ml Intake Oral 240 ml IV Total 100 ml # Voids 1 Result Diagram: 01/25/18 0630 01/25/18 0630 Objective Remarks awake and alert anicteric no nuchal rigidity lungs- clear regular rhythm abdomen- soft, nontender extremities no edema A/P Problem List: (1) Sepsis ICD Code: A41.9 - Sepsis, unspecified organism (2) UTI (urinary tract infection) ICD Code: N39.0 - Urinary tract infection, site not specified (3) Weakness ICD Code: R53.1 - Weakness (4) H/O ovarian cancer ICD Code: Z85.43 - Personal history of malignant neoplasm of ovary Assessment and Plan 47 years old female E coli Sepsis- source UTI - ff final sensitivity - continue on Zosyn - ID consult for recommendation - get US of the kidney/bladder- check for any hydronephrosis/obstruction - ff repeat blood cultures -recheck UA in am Thrombocytopenia- ff cts. S/P recent chemo. can be from sepsis too Anemia- no signs of active bleeding -get iron studies - ff CBC History of Ovarian cancer S/P recent chemotherapy 01/19 - Dr. Hardin consulted TEDs/SCDs Out of bed to the medical center for all meals Problem Qualifiers (1) Sepsis: Qualified Codes: A41.9 - Sepsis, unspecified organism (2) UTI (urinary tract infection): Qualified Codes: N30.00 - Acute cystitis without hematuria Hugh Balbuena MD Jan 25, 2018 12:51
[2018-01-25] MEDS ORDERED: SODIUM CHLORID 0.9% 500 ML INJ 500 ML IV ONE (14:30)
[2018-01-25 15:19] LABS: % SATURATION IRON PROFILE 3.6 % (20-50); IRON (FE) 10 MCG/DL (50-170); TOTAL IRON BINDING CAPACITY 280 MCG/DL (250-450)
[2018-01-25 15:23] LABS: FERRITIN 141 NG/ML (8-252)
[2018-01-25 16:00] VITALS: BP 93/58; PULSE 80; RESP 16; TEMP 97.3; O2SAT 99
--- NOTE | 2018-01-25 17:21 | RADRPT ---
EXAM DATE/TIME: 01/25/2018 16:27 [facility] COMPARISON: CT ABDOMEN & PELVIS W/O CONTRAST, November 11, 2017, 13:17. INDICATIONS : Obstruction. MEDICAL HISTORY : Endometriosis. Ovarian cancer. SURGICAL HISTORY : Cholecystectomy. Gastric bypass. Hysterectomy. Port placement. Cancerous mass removed from pelvis. S tent placement. Right ankle surgery. ENCOUNTER: Initial ACUITY: 1 day PAIN SCORE: 2/10 LOCATION: Bilateral flank MEASUREMENTS: RIGHT KIDNEY: 13.5 x 5.2 x 5.3 cm LEFT KIDNEY: 12.7 x 4.9 x 5.4 cm FINDINGS: RIGHT KIDNEY: Renal cortex is normal in thickness and echotexture. No hydronephrosis, stone, or mass. LEFT KIDNEY: Renal cortex is normal in thickness and echotexture. No hydronephrosis, stone, or mass. BLADDER: Within normal limits given the degree of distension. CONCLUSION: Normal examination for a patient of this age. Don Baumann MD on January 25, 2018 at 17:19 Board Certified Radiologist. This report was verified electronically.
[2018-01-25 20:00] VITALS: BP 94/59; PULSE 85; RESP 18; TEMP 101.4; O2SAT 97
[2018-01-26] VITALS (9 sets, daily range): BP systolic 86–98; BP diastolic 49–80; PULSE 65–83; RESP 17–18; TEMP 96.7–99.2; O2SAT 94–99
[2018-01-26] MEDS: PIPERACIL-TAZO 4.5 GM PREMIX 100 ML IV SCH ×4 (00:18→16:28)
[2018-01-26] MEDS: SODIUM CHLOR 0.9% 1000 ML INJ 1,000 ML IV SCH ×3 (00:23→21:32)
[2018-01-26] MEDS: ACETAMINOPHEN 325 MG TAB PO PRN (06:44)
[2018-01-26 07:20] LABS: HEMATOCRIT 23.4 % (35.0-46.0); HEMOGLOBIN 7.8 GM/DL (11.6-15.3); MEAN CELL VOLUME 83.9 FL (80.0-100.0); MEAN CORPUSCULAR HEMOGLOBIN 28.1 PG (27.0-34.0); MEAN CORPUSCULAR HGB CONC 33.5 % (32.0-36.0); MEAN PLATELET VOLUME 9.5 FL (7.0-11.0); PLATELET COUNT 64 TH/MM3 (150-450); RED BLOOD COUNT 2.78 MIL/MM3 (4.00-5.30); RED CELL DISTRIBUTION WIDTH 23.4 % (11.6-17.2); WHITE BLOOD COUNT 4.4 TH/MM3 (4.0-11.0)
--- NOTE | 2018-01-26 07:47 | PD.ONC.PN ---
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 patient resting in bed states still has headache at times worse when she stands Toponas is helping denies any vomiting, not eating much ID has been consulted and seen patient T max was 102.6 Objective Data Date Time Temp Pulse Resp B/P (MAP) Pulse Ox O2 Delivery O2 Flow Rate FiO2 01/26/18 04:00 98.2 65 18 92/52 (65) 96 01/26/18 00:00 98.1 68 18 95/52 (66) 96 01/25/18 20:00 101.4 85 18 94/59 (71) 97 01/25/18 16:00 97.3 80 16 93/58 (70) 99 01/25/18 12:00 96.5 75 16 88/54 (65) 94 01/25/18 08:00 102.6 92 16 114/57 (76) 94 01/26/18 01/26/18 01/26/18 07:00 15:00 23:00 Intake Total 1340 ml Balance 1340 ml Result Diagram: 01/26/18 0635 01/25/18 0630 Laboratory Results Laboratory Tests Test 01/25/18 14:45 01/26/18 06:35 Iron Level 10 MCG/DL Total Iron Binding Capacity 280 MCG/DL Percent Iron Saturation 3.6 % Ferritin 141 NG/ML White Blood Count 4.4 TH/MM3 Red Blood Count 2.78 MIL/MM3 Hemoglobin 7.8 GM/DL Hematocrit 23.4 % Mean Corpuscular Volume 83.9 FL Mean Corpuscular Hemoglobin 28.1 PG Mean Corpuscular Hemoglobin Concent 33.5 % Red Cell Distribution Width 23.4 % Platelet Count 64 TH/MM3 Mean Platelet Volume 9.5 FL CBC Comment AUTO DIFF Culture Results Microbiology Date/Time Source Procedure Growth Status 01/24/18 12:47 Blood Peripheral Aerobic Blood Culture - Preliminary NO GROWTH IN 1 DAY Resulted 01/24/18 12:47 Blood Peripheral Anaerobic Blood Culture - Preliminary Resulted 01/24/18 12:45 Blood Peripheral Aerobic Blood Culture - Preliminary NO GROWTH IN 1 DAY Resulted 01/24/18 12:45 Blood Peripheral Anaerobic Blood Culture - Preliminary NO GROWTH IN 1 DAY Resulted Imaging Studies Last Impressions Renal Ultrasound 01/25/18 0000 Signed Impressions: Service Date/Time: Thursday, January 25, 2018 16:27 - CONCLUSION: Normal examination for a patient of this age. Don Baumann MD Administered Medications Medications (Trade) Dose Ordered Sig/Joan Route PRN Reason Start Time Stop Time Status Last Admin Dose Admin Sodium Chloride 1,000 ml @ 125 mls/hr Q8H IV 01/24/18 12:00 01/26/18 00:23 Acetaminophen (Tylenol) 650 mg Q4H PRN PO TEMP > 100.4 01/24/18 11:30 01/26/18 06:44 Ondansetron HCl (Zofran Inj) 4 mg Q6H PRN IVP NAUSEA OR VOMITING 01/24/18 11:30 01/25/18 20:23 Enoxaparin Sodium (Lovenox Inj) 40 mg Q24H SQ 01/24/18 13:00 01/25/18 11:53 Piperacillin Sod/ Tazobactam Sod 100 ml @ 200 mls/hr Q6H IV 01/24/18 12:00 01/26/18 06:30 Cyclobenzaprine HCl (Flexeril) 10 mg DAILY PO 01/25/18 09:00 01/25/18 08:30 Acetaminophen/ Hydrocodone Bitart ([place] 7.5-325 Mg) 1 tab Q4HR PRN PO PAIN SCALE 1 TO 10 01/24/18 16:00 01/25/18 20:24 Objective Remarks GENERAL: Well-nourished, well-developed patient. SKIN: Warm and dry. HEAD: Normocephalic. EYES: No scleral icterus. No injection or drainage. CARDIOVASCULAR: Regular rate and rhythm without murmurs. RESPIRATORY: Breath sounds equal bilaterally. No accessory muscle use. MUSCULOSKELETAL: Adequate muscle tone. NEUROLOGICAL: No obvious focal deficit. Awake, alert, and oriented x3. PSYCHIATRIC: Appropriate mood and affect; insight and judgment normal. Assessment/Plan Problem List: (1) Ovarian cancer ICD Codes: C56.9 - Malignant neoplasm of unspecified ovary Plan: once Ms. Guevara has recovered from current hospitalization and infection will continue with 2 more cycles of IV chemotherapy schedule was given to her but can be changed based on patient's current hospital course she will follow up with Dr. Hardin after 2 more cycles of chemotherapy. anemia and thrombocytopenia possible result of IV chemo but her last cycle was 01/05/18 and she should have reached her ever continue to monitor daily labs. consider PRBC transfusion as patient is symptomatic with fatigue, headache and decreased BP (2) Sepsis ICD Codes: A41.9 - Sepsis, unspecified organism Status: Acute Plan: ID is following supportive care IV ABX: piperacillin blood cultures from [facility] + gram negative blood cultures from 01/24/18 negative (3) UTI (urinary tract infection) ICD Codes: N39.0 - Urinary tract infection, site not specified Plan: IV abx renal u/s shown no hydronephrosis or obstruction Problem Qualifiers (1) Ovarian cancer: Qualified Codes: C56.9 - Malignant neoplasm of unspecified ovary (2) Sepsis: Qualified Codes: A41.9 - Sepsis, unspecified organism (3) UTI (urinary tract infection): Qualified Codes: N30.00 - Acute cystitis without hematuria Wong Treawdell Jan 26, 2018 07:47
[2018-01-26] MEDS: SODIUM CHLORIDE 0.9% FLUSH 10 ML FLUSH IV FLUSH SCH ×2 (07:52→21:00)
--- NOTE | 2018-01-26 08:04 | MB ---
cc: Sam Power MD DATE OF CONSULT: 01/25/2018 REQUESTING PHYSICIAN: Dr. Balbuena REASON FOR CONSULTATION: E. coli sepsis, blood and urine culture positive. History of ovarian cancer, recent chemotherapy. HISTORY OF PRESENT ILLNESS: This is a 47-year-old white female who has history of ovarian cancer and has undergone chemotherapy. She recently underwent cycle #6 of chemotherapy in December and was discharged from the hospital on 01/19. The patient presented to the emergency department with flu-like symptoms. She developed sudden onset of chills and fever, and came to the emergency department on January 24. She had temperature of 102.9 degrees on presentation. Urine culture was obtained and also blood culture was obtained. The blood culture has E. coli. Urine culture has Gram negative alina. The urine had revealed 25-49 white cells. The patient was given initially ceftriaxone and then she was started on Piperacillin-Tazobactam. Currently, she feels better. Her temperature continues to be elevated. This morning it was 102.6 degrees. Her white blood cell count was 10.6 on admission and differential showed 8% bands. Currently, she states that she feels better. She no longer has chills. She denies back pain. She denies dysuria. PAST MEDICAL HISTORY: Ovarian cancer, the patient receiving chemotherapy, anemia, some anxiety, depression, abdominal wall abscess in September 2017 due to mixed anaerobes, cholecystectomy, partial hysterectomy, gastric bypass, ankle surgery. ALLERGIES: NO KNOWN DRUG ALLERGIES. MEDICATIONS: Piperacillin-Tazobactam, Lovenox, [place] 7.5, Flexeril. SOCIAL HISTORY: No tobacco, no alcohol. Denies illicit drugs. FAMILY HISTORY: Noncontributory. REVIEW OF SYSTEMS: CONSTITUTIONAL: Significant for fevers and chills. HEAD, EARS, EYES, NOSE AND THROAT: Positive headache. CARDIOVASCULAR: Denies chest pain. RESPIRATORY: Denies cough or shortness of breath. GASTROINTESTINAL: Denies nausea or vomiting. GENITOURINARY: Denies urgency or frequency or dysuria. HEMATOLOGIC: Denies easy bruising. MUSCULOSKELETAL: Notes occasional ankle swelling. INTEGUMENTARY: Denies skin rash or itching. NEUROLOGIC: Denies problem with coordination. PSYCHIATRIC: Significant for anxiety. PHYSICAL EXAMINATION: GENERAL: This is a well developed, pleasant female in no acute distress. She is awake, alert and oriented. VITAL SIGNS: Temperature 97.3, blood pressure 93/58, respirations 16, heart rate 80. HEENT: Head is atraumatic. Extraocular movements grossly intact. Pupils reactive to light. No icterus. Oropharynx, moist mucosa, without lesions. NECK: Supple, without swelling. No adenopathy. LUNGS: Clear breath sounds. CARDIOVASCULAR: 1-2/6 systolic ejection murmur at the left sternal border. CHEST: Infusaport is present in the right chest and has no signs of infection. ABDOMEN: Bowel sounds present, soft, no tenderness appreciated. RECTAL: Not performed. EXTREMITIES: No clubbing. No cyanosis. No edema. NEUROLOGIC: No gross focal findings. PSYCHIATRIC: The patient is calm, pleasant and cooperative. LABORATORY DATA: WBC 6.9, platelet count 72, hemoglobin 8.4, 65% neutrophils, 9% lymphocytes, 14% monocytes, creatinine 0.78, BUN 10. Sodium 134. IMPRESSION: 1. Gram negative sepsis due to Escherichia coli arising from urinary tract infection. 2. Urinary tract infection. 3. Ovarian cancer, status post chemotherapy. The patient receiving ongoing chemotherapy. 4. Fever secondary to sepsis. RECOMMENDATIONS: 1. Continue Piperacillin-Tazobactam. 2. Monitor sensitivity of E. coli in the blood. 3. Monitor urine culture. 4. Monitor temperature and clinical response. Thank you for this consultation. The patient's progress will be followed and further recommendations will be given on followup. MD LEONELA Duarte/EBONIE , 04:31 PM , 06:16 PM JANET
[2018-01-26 08:22] LABS: BANDS 12 % (0-6); LYMPHOCYTES 24 % (9-44); MONOCYTES 15 % (0-8); NEUTROPHIL # MANUAL DIFF 2.7 TH/MM3 (1.8-7.7); POLYS (SEG NEUTROPHILS) 49 % (16-70)
--- NOTE | 2018-01-26 08:43 | HHI.PR ---
Subjective Remarks feels generalized weakness also complains of intermittent fronmtal throbbing headache associated with fever no nausea or vomiting denies any urinary symptoms of dysuria or urgenecy or hematuria t max 101.4 last evening Objective Vitals Vital Signs Date Time Temp Pulse Resp B/P (MAP) Pulse Ox O2 Delivery O2 Flow Rate FiO2 01/26/18 08:00 99.2 83 17 93/57 (69) 94 01/26/18 04:00 98.2 65 18 92/52 (65) 96 01/26/18 00:00 98.1 68 18 95/52 (66) 96 01/25/18 20:00 101.4 85 18 94/59 (71) 97 01/25/18 16:00 97.3 80 16 93/58 (70) 99 01/25/18 12:00 96.5 75 16 88/54 (65) 94 I/O 01/25/18 01/25/18 01/25/18 01/26/18 01/26/18 01/26/18 07:00 15:00 23:00 07:00 15:00 23:00 Intake Total 240 ml 100 ml 1400 ml 1340 ml Balance 240 ml 100 ml 1400 ml 1340 ml Intake Oral 240 ml 800 ml 240 ml IV Total 100 ml 600 ml 1100 ml # Voids 1 4 2 # Bowel Movements 0 Result Diagram: 01/26/18 0635 01/25/18 0630 Imaging Last Impressions Renal Ultrasound 01/25/18 0000 Signed Impressions: Service Date/Time: Thursday, January 25, 2018 16:27 - CONCLUSION: Normal examination for a patient of this age. Don Baumann MD Objective Remarks awake and alert, pupils equally reactive to light, no photophobia anicteric no nuchal rigidity lungs- clear regular rhythm abdomen- soft, nontender, no CVA tenderness extremities no edema A/P Problem List: (1) Sepsis ICD Code: A41.9 - Sepsis, unspecified organism (2) UTI (urinary tract infection) ICD Code: N39.0 - Urinary tract infection, site not specified (3) Weakness ICD Code: R53.1 - Weakness (4) H/O ovarian cancer ICD Code: Z85.43 - Personal history of malignant neoplasm of ovary Assessment and Plan 47 years old female E coli Sepsis- source UTI - ff final sensitivity - continue on Zosyn - ID ff - US of the kidney/bladder- - no obstruction, normal - ff repeat blood cultures - recheck UA Thrombocytopenia- ff cts. S/P recent chemo. can be from sepsis too Anemia- no signs of active bleeding- patient weak [place] stores - give 1 unit RBC - Ferrous sulfate 325 mg po bid - ff CBC Headache- frontal - neuro exam unremarkable - will get a head CT - r/o any acute event- patient with low platelet History of Ovarian cancer S/P recent chemotherapy 01/19 - Gyne Oncology ff Encourage out of bed to chair TEDs/SCDs in bed Hold Lovenox with low platelet Problem Qualifiers (1) Sepsis: Qualified Codes: A41.9 - Sepsis, unspecified organism (2) UTI (urinary tract infection): Qualified Codes: N30.00 - Acute cystitis without hematuria Hugh Balbuena MD Jan 26, 2018 08:43
[2018-01-26] MEDS: CYCLOBENZAPRINE HCL 10 MG TAB PO SCH (09:06)
--- NOTE | 2018-01-26 09:46 | RADRPT ---
EXAM DATE/TIME: 01/26/2018 09:33 [facility] COMPARISON: No previous studies available for comparison. INDICATIONS : Frontal headache with fever RADIATION DOSE: 56.35 CTDIvol (mGy) MEDICAL HISTORY : Ovarian cancer SURGICAL HISTORY : Cholecystectomy. Gastric bypass. Hysterectomy. ENCOUNTER: Initial ACUITY: 1 day PAIN SCALE: 5/10 LOCATION: frontal TECHNIQUE: Multiple contiguous axial images were obtained of the head. Using automated exposure control and adj ustment of the mA and/or kV according to patient size, radiation dose was kept as low as reasonably a chievable to obtain optimal diagnostic quality images. DICOM format image data is available electro nically for review and comparison. FINDINGS: CEREBRUM: The ventricles are normal for age. No evidence of midline shift, mass lesion, hemorrhage or acute in farction. No extra-axial fluid collections are seen. POSTERIOR FOSSA: The cerebellum and brainstem are intact. The 4th ventricle is midline. The cerebellopontine angle i s unremarkable. EXTRACRANIAL: The visualized portion of the orbits is intact. SKULL: The calvaria is intact. No evidence of skull fracture. CONCLUSION: Negative for acute process. There is no sinus disease evident. Raghavendra Jane MD FACR on January 26, 2018 at 9:44 Board Certified Radiologist. This report was verified electronically.
[2018-01-26] MEDS: FERROUS SULFATE 325 MG (65 MG ELEMENTAL IRON) TAB PO SCH ×2 (11:51→16:28)
--- NOTE | 2018-01-26 16:31 | HHI.IDPN ---
Note Infectious Disease Note Patient states she feels okay. Receiving blood transfusion. Temperature of 101 yesterday evening. Urine culture is E. coli. Blood cultures E. coli. Denies chills. Patient presented to the emergency department with flu-like symptoms. She developed sudden onset of chills and fever, and came to the emergency department on January 24. She had temperature of 102.9 degrees on presentation. PAST MEDICAL HISTORY: Ovarian cancer, the patient receiving chemotherapy, anemia, some anxiety, depression, abdominal wall abscess in September 2017 due to mixed anaerobes, cholecystectomy, partial hysterectomy, gastric bypass, ankle surgery. ALLERGIES: NO KNOWN DRUG ALLERGIES. MEDICATIONS: Current Medications Medications (Trade) Dose Ordered Sig/Joan Route PRN Reason Start Time Stop Time Status Last Admin Dose Admin Bisacodyl (Dulcolax Supp) 10 mg DAILY PRN RECTAL SEVERE CONSITIPATION/ IF NPO 01/24/18 06:15 Lactulose (Lactulose Liq) 30 ml DAILY PRN PO SEVERE CONSITIPATION/ IF PO 01/24/18 06:15 Sodium Chloride 1,000 ml @ 70 mls/hr [id number] IV 01/24/18 12:00 01/26/18 09:08 Sodium Chloride (NS Flush) 2 ml UNSCH PRN IV FLUSH FLUSH AFTER USING IV ACCESS 01/24/18 11:30 Sodium Chloride (NS Flush) 2 ml BID IV FLUSH 01/24/18 21:00 Acetaminophen (Tylenol) 650 mg Q4H PRN PO TEMP > 100.4 01/24/18 11:30 01/26/18 06:44 Ondansetron HCl (Zofran Inj) 4 mg Q6H PRN IVP NAUSEA OR VOMITING 01/24/18 11:30 01/25/18 20:23 Enoxaparin Sodium (Lovenox Inj) 40 mg Q24H SQ 01/24/18 13:00 Future Hold 01/25/18 11:53 Naloxone HCl (Narcan Inj) 0.4 mg UNSCH PRN IV PUSH SEE LABEL COMMENTS 01/24/18 11:30 Magnesium Hydroxide (Milk Of Magnesia Liq) 30 ml Q12H PRN PO Mild constipation 01/24/18 11:30 Sennosides (Senokot) 17.2 mg Q12H PRN PO Moderate constipation 01/24/18 11:30 Piperacillin Sod/ Tazobactam Sod 100 ml @ 200 mls/hr Q6H IV 01/24/18 12:00 01/26/18 11:51 Cyclobenzaprine HCl (Flexeril) 10 mg DAILY PO 01/25/18 09:00 01/26/18 09:06 Acetaminophen/ Hydrocodone Bitart ([place] 7.5-325 Mg) 1 tab Q4HR PRN PO PAIN SCALE 1 TO 10 01/24/18 16:00 01/25/18 20:24 Ferrous Sulfate (Ferrous Sulfate) 325 mg BID@12,17 PO 01/26/18 12:00 01/26/18 11:51 SOCIAL HISTORY: No tobacco, no alcohol. Denies illicit drugs. OBJECTIVE: Vital Signs Date Time Temp Pulse Resp B/P (MAP) Pulse Ox O2 Delivery O2 Flow Rate FiO2 01/26/18 14:18 98.0 77 17 86/49 99 01/26/18 14:02 97.6 74 17 86/80 98 01/26/18 12:00 98.0 74 17 95/61 (72) 97 01/26/18 08:00 99.2 83 17 93/57 (69) 94 01/26/18 04:00 98.2 65 18 92/52 (65) 96 01/26/18 00:00 98.1 68 18 95/52 (66) 96 01/25/18 20:00 101.4 85 18 94/59 (71) 97 Laboratory Tests Test 01/25/18 06:30 01/26/18 06:35 White Blood Count 6.9 TH/MM3 4.4 TH/MM3 Red Blood Count 2.93 MIL/MM3 2.78 MIL/MM3 Hemoglobin 8.4 GM/DL 7.8 GM/DL Hematocrit 24.8 % 23.4 % Mean Corpuscular Volume 84.6 FL 83.9 FL Mean Corpuscular Hemoglobin 28.7 PG 28.1 PG Mean Corpuscular Hemoglobin Concent 34.0 % 33.5 % Red Cell Distribution Width 24.2 % 23.4 % Platelet Count 72 TH/MM3 64 TH/MM3 Mean Platelet Volume 9.1 FL 9.5 FL CBC Comment AUTO DIFF AUTO DIFF Differential Total Cells Counted 100 100 Neutrophils % (Manual) 65 % 49 % Band Neutrophils % 12 % 12 % Lymphocytes % 9 % 24 % Monocytes % 14 % 15 % Neutrophils # (Manual) 5.3 TH/MM3 2.7 TH/MM3 Differential Comment FINAL DIFF MANUAL FINAL DIFF MANUAL Platelet Estimate LOW LOW Platelet Morphology Comment NORMAL NORMAL Laboratory Tests Test 01/25/18 06:30 01/25/18 14:45 Blood Urea Nitrogen 10 MG/DL Creatinine 0.78 MG/DL Random Glucose 90 MG/DL Calcium Level 7.9 MG/DL Sodium Level 134 MEQ/L Potassium Level 3.6 MEQ/L Chloride Level 101 MEQ/L Carbon Dioxide Level 26.0 MEQ/L Anion Gap 7 MEQ/L Estimat Glomerular Filtration Rate 78 ML/MIN Iron Level 10 MCG/DL Total Iron Binding Capacity 280 MCG/DL Percent Iron Saturation 3.6 % Ferritin 141 NG/ML Microbiology Date/Time Source Procedure Growth Status 01/24/18 12:47 Blood Peripheral Aerobic Blood Culture - Preliminary NO GROWTH IN 2 DAYS Resulted 01/24/18 12:47 Blood Peripheral Anaerobic Blood Culture - Preliminary Resulted 01/24/18 12:45 Blood Peripheral Aerobic Blood Culture - Preliminary NO GROWTH IN 2 DAYS Resulted 01/24/18 12:45 Blood Peripheral Anaerobic Blood Culture - Preliminary NO GROWTH IN 2 DAYS Resulted IMAGING: Head CT 01/26/18 0000 Signed Impressions: Service Date/Time: Friday, January 26, 2018 09:33 - CONCLUSION: Negative for acute process. There is no sinus disease evident. Raghavendra Jane MD FACR Renal Ultrasound 01/25/18 0000 Signed Impressions: Service Date/Time: Thursday, January 25, 2018 16:27 - CONCLUSION: Normal examination for a patient of this age. Don Baumann MD PHYSICAL EXAMINATION: GENERAL: No acute distress. She is awake, alert and oriented. HEENT: Head is atraumatic. Extraocular movements grossly intact. Pupils reactive to light. No icterus. Oropharynx, moist mucosa, without lesions. NECK: Supple, without swelling. No adenopathy. LUNGS: Clear breath sounds. CARDIOVASCULAR: Regular S1 and S2. 1-2/6 systolic ejection murmur at the left sternal border. ABDOMEN: Bowel sounds present, soft, no tenderness appreciated. EXTREMITIES: No clubbing. No cyanosis. No edema. NEUROLOGIC: No gross focal findings. PSYCHIATRIC: calm, pleasant and cooperative. IMPRESSION: 1. Sepsis due to Escherichia coli arising from urinary tract infection. 2. Urinary tract infection. E. coli. 3. Ovarian cancer, status post chemotherapy. The patient receiving ongoing chemotherapy. 4. Fever secondary to sepsis. Still with elevated temp. RECOMMENDATIONS: 1. Continue Piperacillin-Tazobactam. 2. Monitor sensitivity of E. coli in the blood. 3. Monitor temperature. Would like to see the temperature normal For 48 hours before making decision about outpatient antibiotics. She has an [id number]. Because of the severe immunosuppression We may want to elect to give her a 10 day course of IV antibiotics. 4. Monitor clinical response Sam Power MD Jan 26, 2018 16:31
[2018-01-26 16:36] LABS: HEMATOCRIT 26.2 % (35.0-46.0); HEMOGLOBIN 8.9 GM/DL (11.6-15.3)
[2018-01-26] MEDS: ACETAMINOPHEN/HYDROcodone 325 MG/7.5 MG TAB PO PRN (18:54)
[2018-01-27] VITALS (8 sets, daily range): BP systolic 80–114; BP diastolic 46–62; PULSE 63–93; RESP 16–22; TEMP 95.9–98.6; O2SAT 93–100
[2018-01-27] MEDS: PIPERACIL-TAZO 4.5 GM PREMIX 100 ML IV SCH ×4 (00:26→18:02)
[2018-01-27] MEDS: ACETAMINOPHEN/HYDROcodone 325 MG/7.5 MG TAB PO PRN ×2 (01:50→08:45)
[2018-01-27 06:12] LABS: HEMATOCRIT 23.9 % (35.0-46.0); HEMOGLOBIN 8.2 GM/DL (11.6-15.3); MEAN CELL VOLUME 83.9 FL (80.0-100.0); MEAN CORPUSCULAR HEMOGLOBIN 28.7 PG (27.0-34.0); MEAN CORPUSCULAR HGB CONC 34.2 % (32.0-36.0); MEAN PLATELET VOLUME 9.3 FL (7.0-11.0); PLATELET COUNT 76 TH/MM3 (150-450); RED BLOOD COUNT 2.85 MIL/MM3 (4.00-5.30); RED CELL DISTRIBUTION WIDTH 22.7 % (11.6-17.2); WHITE BLOOD COUNT 3.6 TH/MM3 (4.0-11.0)
[2018-01-27 06:23] LABS: BICARBONATE 29.6 MEQ/L (21.0-32.0); CALCIUM 8.1 MG/DL (8.5-10.1); CREATININE 0.74 MG/DL (0.50-1.00)
[2018-01-27] MEDS: CYCLOBENZAPRINE HCL 10 MG TAB PO SCH (08:39)
[2018-01-27] MEDS: SODIUM CHLORIDE 0.9% FLUSH 10 ML FLUSH IV FLUSH SCH ×2 (08:40→19:23)
[2018-01-27] MEDS: ONDANSETRON HCL 4 MG/2 ML VIAL IVP PRN ×2 (08:40→19:23)
--- NOTE | 2018-01-27 08:40 | HHI.PR ---
Subjective Remarks feels stronger, already up on the chair slight nausea this am after eating pancake with syrup no pain complains no urinary complains some loose stools- after getting Senokot last evening Objective Vitals Vital Signs Date Time Temp Pulse Resp B/P (MAP) Pulse Ox O2 Delivery O2 Flow Rate FiO2 01/27/18 05:44 94/62 (73) 01/27/18 04:00 96.6 68 16 90/55 (67) 93 Manual Cuff/Auscultation 01/27/18 02:00 71 01/27/18 00:00 95.9 69 18 90/55 (67) 96 01/26/18 20:30 98/56 (70) Automatic Cuff 01/26/18 20:00 96.7 80 18 87/51 (63) 98 01/26/18 16:00 98.6 75 17 92/49 (63) 97 01/26/18 14:18 98.0 77 17 86/49 99 01/26/18 14:02 97.6 74 17 86/80 98 01/26/18 12:00 98.0 74 17 95/61 (72) 97 I/O 01/26/18 01/26/18 01/26/18 01/27/18 01/27/18 01/27/18 07:00 15:00 23:00 07:00 15:00 23:00 Intake Total 1340 ml 100 ml 2266 ml 360 ml Balance 1340 ml 100 ml 2266 ml 360 ml Intake Oral 240 ml 1764 ml 360 ml IV Total 1100 ml 100 ml 100 ml Packed Cells 400 ml Blood Product IV Normal Saline Flush 2 ml # Voids 2 5 3 # Bowel Movements 1 0 Result Diagram: 01/27/18 0545 01/27/18 0545 Imaging Last Impressions Head CT 01/26/18 0000 Signed Impressions: Service Date/Time: Friday, January 26, 2018 09:33 - CONCLUSION: Negative for acute process. There is no sinus disease evident. Raghavendra Jane MD FACR Renal Ultrasound 01/25/18 0000 Signed Impressions: Service Date/Time: Thursday, January 25, 2018 16:27 - CONCLUSION: Normal examination for a patient of this age. Don Baumann MD Objective Remarks awake and alert, anicteric no nuchal rigidity chest wall- port site- no signs of infection lungs- clear regular rhythm abdomen- soft, nontender, no CVA tenderness extremities no edema A/P Problem List: (1) Sepsis ICD Code: A41.9 - Sepsis, unspecified organism (2) UTI (urinary tract infection) ICD Code: N39.0 - Urinary tract infection, site not specified (3) Weakness ICD Code: R53.1 - Weakness (4) H/O ovarian cancer ICD Code: Z85.43 - Personal history of malignant neoplasm of ovary Assessment and Plan 47 years old female E coli Sepsis- source UTI -T down . WBC ct down to 3.4 today - continue on Zosyn. Afebrile for last 36 hours - ID ff - US of the kidney/bladder- - no obstruction, normal - repeat blood cultures so far negative Thrombocytopenia- ff cts. S/P recent chemo. can be from sepsis too Anemia- no signs of active bleeding- Low Iron stores - S/P 1 unit RBC 01/26 - Ferrous sulfate 325 mg po bid - ff CBC - Oncology ff HYpokalemia -replace with po KCL 10 meq x 3 -recheck in am Headache- frontal-01/26 likely related to fever - No complains - neuro exam unremarkable - Head CT negative History of Ovarian cancer S/P recent chemotherapy 01/19 - Gyne Oncology ff Encourage out of bed to chair TEDs/SCDs in bed Hold Lovenox with low platelet Problem Qualifiers (1) Sepsis: Qualified Codes: A41.9 - Sepsis, unspecified organism (2) UTI (urinary tract infection): Qualified Codes: N30.00 - Acute cystitis without hematuria Huhg Balbuena MD Jan 27, 2018 08:40
[2018-01-27] MEDS ORDERED: POTASSIUM CHLORIDE 10 MEQ CAP PO ONE (08:45)
[2018-01-27] MEDS: POTASSIUM CHLOR 10 MEQ PREMIX 100 ML IV SCH ×3 (08:56→11:43)
[2018-01-27] MEDS: SODIUM CHLOR 0.9% 1000 ML INJ 1,000 ML IV SCH (09:03)
[2018-01-27 09:38] LABS: BANDS 20 % (0-6); LYMPHOCYTES 31 % (9-44); MONOCYTES 12 % (0-8); NEUTROPHIL # MANUAL DIFF 2.1 TH/MM3 (1.8-7.7); POLYS (SEG NEUTROPHILS) 37 % (16-70)
--- NOTE | 2018-01-27 09:43 | PD.ONC.PN ---
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 no further complaints explained that we will continue treatment once discharged from hospital and we will follow medicine team recommendations for hospital course and discharge. Objective Data Date Time Temp Pulse Resp B/P (MAP) Pulse Ox O2 Delivery O2 Flow Rate FiO2 01/27/18 08:00 96.2 63 17 90/54 (66) 99 01/27/18 05:44 94/62 (73) 01/27/18 04:00 96.6 68 16 90/55 (67) 93 Manual Cuff/Auscultation 01/27/18 02:00 71 01/27/18 00:00 95.9 69 18 90/55 (67) 96 01/26/18 20:30 98/56 (70) Automatic Cuff 01/26/18 20:00 96.7 80 18 87/51 (63) 98 01/26/18 16:00 98.6 75 17 92/49 (63) 97 01/26/18 14:18 98.0 77 17 86/49 99 01/26/18 14:02 97.6 74 17 86/80 98 01/26/18 12:00 98.0 74 17 95/61 (72) 97 01/27/18 01/27/18 01/27/18 07:00 15:00 23:00 Intake Total 360 ml Balance 360 ml Result Diagram: 01/27/18 0545 01/27/18 0545 Laboratory Results Laboratory Tests Test 01/26/18 16:15 01/27/18 05:45 Hemoglobin 8.9 GM/DL 8.2 GM/DL Hematocrit 26.2 % 23.9 % White Blood Count 3.6 TH/MM3 Red Blood Count 2.85 MIL/MM3 Mean Corpuscular Volume 83.9 FL Mean Corpuscular Hemoglobin 28.7 PG Mean Corpuscular Hemoglobin Concent 34.2 % Red Cell Distribution Width 22.7 % Platelet Count 76 TH/MM3 Mean Platelet Volume 9.3 FL CBC Comment AUTO DIFF Blood Urea Nitrogen 5 MG/DL Creatinine 0.74 MG/DL Random Glucose 92 MG/DL Calcium Level 8.1 MG/DL Sodium Level 141 MEQ/L Potassium Level 3.1 MEQ/L Chloride Level 105 MEQ/L Carbon Dioxide Level 29.6 MEQ/L Anion Gap 6 MEQ/L Estimat Glomerular Filtration Rate 83 ML/MIN Culture Results Microbiology Date/Time Source Procedure Growth Status 01/24/18 12:47 Blood Peripheral Aerobic Blood Culture - Preliminary NO GROWTH IN 2 DAYS Resulted 01/24/18 12:47 Blood Peripheral Anaerobic Blood Culture - Preliminary Resulted 01/24/18 12:45 Blood Peripheral Aerobic Blood Culture - Preliminary NO GROWTH IN 2 DAYS Resulted 01/24/18 12:45 Blood Peripheral Anaerobic Blood Culture - Preliminary NO GROWTH IN 2 DAYS Resulted Imaging Studies Last Impressions Head CT 01/26/18 0000 Signed Impressions: Service Date/Time: Friday, January 26, 2018 09:33 - CONCLUSION: Negative for acute process. There is no sinus disease evident. Raghavendra Jane MD FACR Renal Ultrasound 01/25/18 0000 Signed Impressions: Service Date/Time: Thursday, January 25, 2018 16:27 - CONCLUSION: Normal examination for a patient of this age. Don Baumann MD Administered Medications Medications (Trade) Dose Ordered Sig/Joan Route PRN Reason Start Time Stop Time Status Last Admin Dose Admin Sodium Chloride 1,000 ml @ 70 mls/hr [id number] IV 01/24/18 12:00 01/27/18 09:03 Acetaminophen (Tylenol) 650 mg Q4H PRN PO TEMP > 100.4 01/24/18 11:30 01/26/18 06:44 Ondansetron HCl (Zofran Inj) 4 mg Q6H PRN IVP NAUSEA OR VOMITING 01/24/18 11:30 01/27/18 08:40 Enoxaparin Sodium (Lovenox Inj) 40 mg Q24H SQ 01/24/18 13:00 Future Hold 01/25/18 11:53 Sennosides (Senokot) 17.2 mg Q12H PRN PO Moderate constipation 01/24/18 11:30 01/26/18 17:12 Piperacillin Sod/ Tazobactam Sod 100 ml @ 200 mls/hr Q6H IV 01/24/18 12:00 01/27/18 05:39 Cyclobenzaprine HCl (Flexeril) 10 mg DAILY PO 01/25/18 09:00 01/27/18 08:39 Acetaminophen/ Hydrocodone Bitart (Brick 7.5-325 Mg) 1 tab Q4HR PRN PO PAIN SCALE 1 TO 10 01/24/18 16:00 01/27/18 08:45 Ferrous Sulfate (Ferrous Sulfate) 325 mg BID@12,17 PO 01/26/18 12:00 01/26/18 16:28 Potassium Chloride 100 ml @ 100 mls/hr Q1H IV 01/27/18 08:45 01/27/18 11:44 01/27/18 08:56 Objective Remarks GENERAL: Well-nourished, well-developed patient. SKIN: Warm and dry. HEAD: Normocephalic. EYES: No scleral icterus. No injection or drainage. NECK: Supple, trachea midline. CARDIOVASCULAR: Regular rate and rhythm without murmurs. RESPIRATORY: Breath sounds equal bilaterally. No accessory muscle use. EXTREMITIES: teds and scds MUSCULOSKELETAL: Adequate muscle tone. NEUROLOGICAL: No obvious focal deficit. Awake, alert, and oriented x3. PSYCHIATRIC: Appropriate mood and affect; insight and judgment normal. Assessment/Plan Problem List: (1) Ovarian cancer ICD Codes: C56.9 - Malignant neoplasm of unspecified ovary Plan: once Ms. Guevara has recovered from current hospitalization and infection will continue with 2 more cycles of IV chemotherapy schedule was given to her but can be changed based on patient's current hospital course she will follow up with Dr. Hardin after 2 more cycles of chemotherapy. anemia and thrombocytopenia possible result of IV chemo but her last cycle was 01/05/18 and she should have reached her ever continue to monitor daily labs. consider PRBC transfusion as patient is symptomatic with fatigue, headache and decreased BP 01/27/18: patient has received 1 unit PRBCs, Hem 8.2 this AM daily labs (2) Sepsis ICD Codes: A41.9 - Sepsis, unspecified organism Status: Acute Plan: ID is following supportive care IV ABX: piperacillin blood cultures from [place] + gram negative blood cultures from 01/24/18 negative 01/27/18: continue ABX for + urine blood cultures from 01/24/18 negative (3) UTI (urinary tract infection) ICD Codes: N39.0 - Urinary tract infection, site not specified Plan: IV abx renal u/s shown no hydronephrosis or obstruction 01/27/18: continue ABX, ID following Problem Qualifiers (1) Ovarian cancer: Qualified Codes: C56.9 - Malignant neoplasm of unspecified ovary (2) Sepsis: Qualified Codes: A41.9 - Sepsis, unspecified organism (3) UTI (urinary tract infection): Qualified Codes: N30.00 - Acute cystitis without hematuria Wong Treadwell Jan 27, 2018 09:43
[2018-01-27] MEDS: FERROUS SULFATE 325 MG (65 MG ELEMENTAL IRON) TAB PO SCH ×2 (11:42→18:02)
[2018-01-28] VITALS: BP 95/54; PULSE 78; RESP 22; TEMP 96.6; O2SAT 97
[2018-01-28] MEDS: PIPERACIL-TAZO 4.5 GM PREMIX 100 ML IV SCH ×2 (00:05→05:10)
[2018-01-28 00:08] VITALS: PULSE 76
[2018-01-28] MEDS: SODIUM CHLOR 0.9% 1000 ML INJ 1,000 ML IV SCH (03:07)
[2018-01-28 04:00] VITALS: BP 94/51; PULSE 61; RESP 20; TEMP 96.6; O2SAT 96
[2018-01-28 05:33] LABS: AUTOMATED NEUTROPHIL # 1.9 TH/MM3 (1.8-7.7); BASOPHIL % 0.3 % (0.0-2.0); EOSINOPHIL % 0.5 % (0.0-4.0); HEMATOCRIT 23.9 % (35.0-46.0); HEMOGLOBIN 8.1 GM/DL (11.6-15.3); LYMPHOCYTE # 1.5 TH/MM3 (1.0-4.8); MEAN CELL VOLUME 84.8 FL (80.0-100.0); MEAN CORPUSCULAR HEMOGLOBIN 28.6 PG (27.0-34.0); MEAN CORPUSCULAR HGB CONC 33.7 % (32.0-36.0); MEAN PLATELET VOLUME 9.4 FL (7.0-11.0); MONO % 14.5 % (0.0-8.0); MONOCYTE # 0.6 TH/MM3 (0-0.9); NEUT % 46.7 % (16.0-70.0); PLATELET COUNT 103 TH/MM3 (150-450); RED BLOOD COUNT 2.82 MIL/MM3 (4.00-5.30); RED CELL DISTRIBUTION WIDTH 22.8 % (11.6-17.2)
[2018-01-28 05:58] LABS: CALCIUM 8.2 MG/DL (8.5-10.1); CREATININE 0.84 MG/DL (0.50-1.00)
[2018-01-28 08:00] VITALS: BP 100/64; PULSE 60; RESP 19; TEMP 96.6; O2SAT 94
--- NOTE | 2018-01-28 08:37 | HHI.PR ---
Subjective Remarks feels and looks great no dysruia no fever or chills- afebrile last 48 hours Objective Vitals Vital Signs Date Time Temp Pulse Resp B/P (MAP) Pulse Ox O2 Delivery O2 Flow Rate FiO2 01/28/18 08:00 96.6 60 19 100/64 (76) 94 01/28/18 04:00 96.6 61 20 94/51 (65) 96 01/28/18 00:08 76 01/28/18 00:00 96.6 78 22 95/54 (68) 97 01/27/18 20:00 98.6 93 22 94/53 (67) 98 01/27/18 16:00 96.3 81 16 114/60 (78) 100 01/27/18 12:00 96.5 68 19 98/52 (67) 99 101/62 (75) I/O 01/27/18 01/27/18 01/27/18 01/28/18 01/28/18 01/28/18 07:00 15:00 23:00 07:00 15:00 23:00 Intake Total 360 ml 400 ml 1349 ml 1031 ml Balance 360 ml 400 ml 1349 ml 1031 ml Intake Oral 360 ml 720 ml 360 ml IV Total 400 ml 629 ml 671 ml # Voids 3 4 4 # Bowel Movements 0 1 1 Result Diagram: 01/28/18 0519 01/28/18 0519 Imaging Last Impressions Head CT 01/26/18 0000 Signed Impressions: Service Date/Time: Friday, January 26, 2018 09:33 - CONCLUSION: Negative for acute process. There is no sinus disease evident. Raghavendra Jane MD FACR Renal Ultrasound 01/25/18 0000 Signed Impressions: Service Date/Time: Thursday, January 25, 2018 16:27 - CONCLUSION: Normal examination for a patient of this age. Don Baumann MD Objective Remarks awake and alert, anicteric no nuchal rigidity chest wall- port site- no signs of infection lungs- clear regular rhythm abdomen- soft, nontender, no CVA tenderness extremities no edema A/P Problem List: (1) Sepsis ICD Code: A41.9 - Sepsis, unspecified organism (2) UTI (urinary tract infection) ICD Code: N39.0 - Urinary tract infection, site not specified (3) Weakness ICD Code: R53.1 - Weakness (4) H/O ovarian cancer ICD Code: Z85.43 - Personal history of malignant neoplasm of ovary Assessment and Plan 47 years old female E coli Sepsis- source UTI -T down . WBC ct down to 3.4 today - on Zosyn. Afebrile for last 48 hours - ID ff - US of the kidney/bladder- - no obstruction, normal - repeat blood cultures - negative x 3 days - DC home today with ID recommendation- IV antibiotics vs po- patient has infusaport in place - will ask CM for assitanxce- OP home IV antibiotic Thrombocytopenia- ff cts. S/P recent chemo. can be from sepsis too- platelet up Anemia- no signs of active bleeding- Low Iron stores - S/P 1 unit RBC 01/26 - Ferrous sulfate 325 mg po bid - H and H stable - Oncology ff HYpokalemia- improved -replaced with po KCL 10 meq x 3 - K in IVF - advise to have banana daikly - KCL 10 meq po daily on DC x 5 days- recheck lab as OP through PCP d/w her Headache- frontal-01/26 likely related to fever- Resolved - No complains - neuro exam unremarkable - Head CT negative History of Ovarian cancer S/P recent chemotherapy 01/19 - Gyne Oncology ff Home today OP ff up with PCP- states she has an appt already OP ff up with [facility] Problem Qualifiers (1) Sepsis: Qualified Codes: A41.9 - Sepsis, unspecified organism (2) UTI (urinary tract infection): Qualified Codes: N30.00 - Acute cystitis without hematuria Hugh Balbuena MD Jan 28, 2018 08:37
[2018-01-28] MEDS ORDERED: FERR325T20 PO (08:42)
[2018-01-28] MEDS ORDERED: POTA10CA PO (08:46)
--- NOTE | 2018-01-28 08:51 | HHI.DS ---
Discharge Summary Admission Date Jan 24, 2018 at 09:02 Discharge Date: Jan 28, 2018 Admitting Diagnosis (1) Sepsis ICD Code: A41.9 - Sepsis, unspecified organism Diagnosis: Principal (2) UTI (urinary tract infection) ICD Code: N39.0 - Urinary tract infection, site not specified Diagnosis: Principal (3) Weakness ICD Code: R53.1 - Weakness Diagnosis: Secondary (4) H/O ovarian cancer ICD Code: Z85.43 - Personal history of malignant neoplasm of ovary Diagnosis: Secondary Procedures none Brief History - From Admission This is a 47-year-old female with past medical history significant for ovarian cancer currently on chemotherapy and under the care of Dr. Hardin who presents to [facility] complaining of generalized weakness, fevers, chills, fatigue as well as headaches. Patient initially presented to [facility] at the [facility] where she was found to have a urinary tract infection. Patient's temperature over at [facility] in the [facility] upon review of records shows that went up to 102.9. The patient denies cough, diarrhea, abdominal pain, nausea, dysuria, chest pain, shortness of breath. CBC/BMP: 01/28/18 0519 01/28/18 0519 Significant Findings Laboratory Tests Test 01/25/18 14:45 01/26/18 06:35 01/26/18 16:15 01/27/18 05:45 Iron Level 10 MCG/DL (50-170) Percent Iron Saturation 3.6 % (20-50) Red Blood Count 2.78 MIL/MM3 (4.00-5.30) 2.85 MIL/MM3 (4.00-5.30) Hemoglobin 7.8 GM/DL (11.6-15.3) 8.9 GM/DL (11.6-15.3) 8.2 GM/DL (11.6-15.3) Hematocrit 23.4 % (35.0-46.0) 26.2 % (35.0-46.0) 23.9 % (35.0-46.0) Red Cell Distribution Width 23.4 % (11.6-17.2) 22.7 % (11.6-17.2) Platelet Count 64 TH/MM3 (150-450) 76 TH/MM3 (150-450) Band Neutrophils % 12 % (0-6) 20 % (0-6) Monocytes % 15 % (0-8) 12 % (0-8) Platelet Estimate LOW (NORMAL) LOW (NORMAL) White Blood Count 3.6 TH/MM3 (4.0-11.0) Blood Urea Nitrogen 5 MG/DL (7-18) Calcium Level 8.1 MG/DL (8.5-10.1) Potassium Level 3.1 MEQ/L (3.5-5.1) Estimat Glomerular Filtration Rate 83 ML/MIN (>89) Test 01/28/18 05:19 Red Blood Count 2.82 MIL/MM3 (4.00-5.30) Hemoglobin 8.1 GM/DL (11.6-15.3) Hematocrit 23.9 % (35.0-46.0) Red Cell Distribution Width 22.8 % (11.6-17.2) Platelet Count 103 TH/MM3 (150-450) Monocytes (%) (Auto) 14.5 % (0.0-8.0) Blood Urea Nitrogen 5 MG/DL (7-18) Calcium Level 8.2 MG/DL (8.5-10.1) Estimat Glomerular Filtration Rate 72 ML/MIN (>89) Imaging Last Impressions Head CT 01/26/18 0000 Signed Impressions: Service Date/Time: Friday, January 26, 2018 09:33 - CONCLUSION: Negative for acute process. There is no sinus disease evident. Raghavendra Jane MD FACR Renal Ultrasound 01/25/18 0000 Signed Impressions: Service Date/Time: Thursday, January 25, 2018 16:27 - CONCLUSION: Normal examination for a patient of this age. Don Baumann MD PE at Discharge awake and alert, anicteric no nuchal rigidity chest wall- port site- no signs of infection lungs- clear regular rhythm abdomen- soft, nontender, no CVA tenderness extremities no edema Pt update on day of discharge afebrile feels stronger WBC up Hospital Course 47 years old female E coli Sepsis- source UTI -T down . WBC ct down to 3.4 today - on Zosyn. Afebrile for last 48 hours - ID ff - US of the kidney/bladder- - no obstruction, normal - repeat blood cultures - negative x 3 days - DC home today with ID recommendation- IV antibiotics vs po- patient has infusaport in place - will ask CM for assitanxce- OP home IV antibiotic Thrombocytopenia- ff cts. S/P recent chemo. can be from sepsis too- platelet up Anemia- no signs of active bleeding- Low Iron stores - S/P 1 unit RBC 01/26 - Ferrous sulfate 325 mg po bid - H and H stable - Oncology ff HYpokalemia- improved -replaced with po KCL 10 meq x 3 - K in IVF - advise to have banana daikly - KCL 10 meq po daily on DC x 5 days- recheck lab as OP through PCP d/w her Headache- frontal-01/26 likely related to fever- Resolved - No complains - neuro exam unremarkable - Head CT negative History of Ovarian cancer S/P recent chemotherapy 01/19 - Gyne Oncology ff Home today OP ff up with PCP- states she has an appt already OP ff up with [facility] Pt Condition on Discharge: Stable Discharge Disposition: Disch w/ Home Health Serv Discharge Time: <= 30 minutes Discharge Instructions DIET: Follow Instructions for: As Tolerated, No Restrictions Speech Therapy-Diet Recommends: Regular Activities you can perform: Weight Bearing as [place] Follow up Referrals: Oncology - 3-5 Days with Tl PCP Follow-up - 3-5 Days New Orders: BASIC METABOLIC PROF - 02/01/18 CBC WITH DIFF - 02/01/18 New Medications: Potassium Chloride ER (Potassium Chloride ER) 10 Meq Cap 10 MEQ PO DAILY for Electrolyte Replacement for 5 Days, #5 CAP 0 Refills Ferrous Sulfate (Ferosul) 325 Mg (65 Mg Iron) Tablet 325 MG PO BID@12,17 for ironsupp for 30 Days, #60 TAB 1 Refill Continued Medications: Cyclobenzaprine (Flexeril) 10 Mg Tab 10 MG PO DAILY for Muscle Spasm, #90 TAB 0 Refills Hydrocodone-Acetaminophen ([place]) 7.5-325 mg Tab 1 TAB PO every 6 hours PRN for pain, #40 TAB 0 Refills Lorazepam (Ativan) 0.5 Mg Tab 0.5 MG PO DAILY PRN for ANXIETY AND/OR AGITATION, TAB 0 Refills Ondansetron (Ondansetron) 8 Mg Tab 8 MG PO TID for Nausea/Vomiting, #12 TAB 1 Refill Hugh Balbuena MD Jan 28, 2018 08:51
[2018-01-28] MEDS: SODIUM CHLORIDE 0.9% FLUSH 10 ML FLUSH IV FLUSH SCH (09:00)
[2018-01-28] MEDS: CYCLOBENZAPRINE HCL 10 MG TAB PO SCH (09:23)
--- NOTE | 2018-01-28 10:00 | HHI.FF ---
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 [] May leave port accessed during therapy. [] May leave peripheral site accessed for duration of therapy. [x] If patient has SOB or respiratory distress, check oxygen saturation. If less than 90% or clinical signs of respiratory distress, administer oxygen at 2 L/min. via nasal cannula and notify physician. [x] Anaphylaxis/Reaction orders: * Stop infusion. * Keep IV line open with saline flush. * Notify physician. * Monitor vital signs every 15 minutes until symptoms resolve. * Check Oxygen saturation; Oxygen at 2 L/min. via nasal cannula if less than 90% or clinical signs of respiratory distress. * Administer diphenhydramine (Benadryl) 25 mg IV STAT, (unless patient has received as pre-med). May repeat once, if necessary. * Solu-Cortef 250 mg IVP over 30-60 seconds, use 100 mg vials for each dissolution. * Epinephrine (1mg/1 ml) 0.3 mg subcutaneously or IVP now with any signs of respiratory distress. * Check with physician for new additional pre-med orders if patient is re- challenged or re-treated. [x] May remove PICC line when treatment complete, after confirming with Physician. [x] If the patient is admitted to the hospital, the ED, or transferred via [facility] , complete transfer form including medication reconciliation order sheet. Laboratory Tests Additional Information BMP on 01/31/18. Fax results to Dr Power [phone]. Sam Power MD Jan 28, 2018 10:00
--- NOTE | 2018-01-28 10:21 | HHI.IDPN ---
Note Infectious Disease Note Patient feels okay. Reports that she had a good night. No chills. Repeated blood cultures negative 48 hours. Urine culture is E. coli. Blood cultures E. coli. Patient presented to the emergency department with flu-like symptoms. She developed sudden onset of chills and fever, and came to the emergency department on January 24. She had temperature of 102.9 degrees on presentation. PAST MEDICAL HISTORY: Ovarian cancer, the patient receiving chemotherapy, anemia, some anxiety, depression, abdominal wall abscess in September 2017 due to mixed anaerobes, cholecystectomy, partial hysterectomy, gastric bypass, ankle surgery. ALLERGIES: NO KNOWN DRUG ALLERGIES. MEDICATIONS: Current Medications Medications (Trade) Dose Ordered Sig/Joan Route PRN Reason Start Time Stop Time Status Last Admin Dose Admin Bisacodyl (Dulcolax Supp) 10 mg DAILY PRN RECTAL SEVERE CONSITIPATION/ IF NPO 01/24/18 06:15 Lactulose (Lactulose Liq) 30 ml DAILY PRN PO SEVERE CONSITIPATION/ IF PO 01/24/18 06:15 Sodium Chloride 1,000 ml @ 70 mls/hr [id number] IV 01/24/18 12:00 01/28/18 03:07 Sodium Chloride (NS Flush) 2 ml UNSCH PRN IV FLUSH FLUSH AFTER USING IV ACCESS 01/24/18 11:30 Sodium Chloride (NS Flush) 2 ml BID IV FLUSH 01/24/18 21:00 01/27/18 19:23 Acetaminophen (Tylenol) 650 mg Q4H PRN PO TEMP > 100.4 01/24/18 11:30 01/26/18 06:44 Ondansetron HCl (Zofran Inj) 4 mg Q6H PRN IVP NAUSEA OR VOMITING 01/24/18 11:30 01/27/18 19:23 Enoxaparin Sodium (Lovenox Inj) 40 mg Q24H SQ 01/24/18 13:00 Future Hold 01/25/18 11:53 Naloxone HCl (Narcan Inj) 0.4 mg UNSCH PRN IV PUSH SEE LABEL COMMENTS 01/24/18 11:30 Magnesium Hydroxide (Milk Of Magnesia Liq) 30 ml Q12H PRN PO Mild constipation 01/24/18 11:30 Sennosides (Senokot) 17.2 mg Q12H PRN PO Moderate constipation 01/24/18 11:30 01/26/18 17:12 Cyclobenzaprine HCl (Flexeril) 10 mg DAILY PO 01/25/18 09:00 01/28/18 09:23 Acetaminophen/ Hydrocodone Bitart (Amigo 7.5-325 Mg) 1 tab Q4HR PRN PO PAIN SCALE 1 TO 10 01/24/18 16:00 01/27/18 08:45 Ferrous Sulfate (Ferrous Sulfate) 325 mg BID@12,17 PO 01/26/18 12:00 01/27/18 18:02 Ceftriaxone Sodium 2000 mg/ Sodium Chloride 100 ml @ 200 mls/hr Q24H IV 01/28/18 11:00 SOCIAL HISTORY: No tobacco, no alcohol. Denies illicit drugs. OBJECTIVE: Vital Signs Date Time Temp Pulse Resp B/P (MAP) Pulse Ox O2 Delivery O2 Flow Rate FiO2 01/28/18 08:00 96.6 60 19 100/64 (76) 94 01/28/18 04:00 96.6 61 20 94/51 (65) 96 01/28/18 00:08 76 01/28/18 00:00 96.6 78 22 95/54 (68) 97 01/27/18 20:00 98.6 93 22 94/53 (67) 98 01/27/18 16:00 96.3 81 16 114/60 (78) 100 01/27/18 12:00 96.5 68 19 98/52 (67) 99 101/62 (75) Laboratory Tests Test 01/26/18 16:15 01/27/18 05:45 01/28/18 05:19 Hemoglobin 8.9 GM/DL 8.2 GM/DL 8.1 GM/DL Hematocrit 26.2 % 23.9 % 23.9 % White Blood Count 3.6 TH/MM3 4.0 TH/MM3 Red Blood Count 2.85 MIL/MM3 2.82 MIL/MM3 Mean Corpuscular Volume 83.9 FL 84.8 FL Mean Corpuscular Hemoglobin 28.7 PG 28.6 PG Mean Corpuscular Hemoglobin Concent 34.2 % 33.7 % Red Cell Distribution Width 22.7 % 22.8 % Platelet Count 76 TH/MM3 103 TH/MM3 Mean Platelet Volume 9.3 FL 9.4 FL CBC Comment AUTO DIFF DIFF FINAL Differential Total Cells Counted 100 Neutrophils % (Manual) 37 % Band Neutrophils % 20 % Lymphocytes % 31 % Monocytes % 12 % Neutrophils # (Manual) 2.1 TH/MM3 Differential Comment FINAL DIFF MANUAL Platelet Estimate LOW Platelet Morphology Comment NORMAL Neutrophils (%) (Auto) 46.7 % Lymphocytes (%) (Auto) 38.0 % Monocytes (%) (Auto) 14.5 % Eosinophils (%) (Auto) 0.5 % Basophils (%) (Auto) 0.3 % Neutrophils # (Auto) 1.9 TH/MM3 Lymphocytes # (Auto) 1.5 TH/MM3 Monocytes # (Auto) 0.6 TH/MM3 Eosinophils # (Auto) 0.0 TH/MM3 Basophils # (Auto) 0.0 TH/MM3 Laboratory Tests Test 01/27/18 05:45 01/28/18 05:19 Blood Urea Nitrogen 5 MG/DL 5 MG/DL Creatinine 0.74 MG/DL 0.84 MG/DL Random Glucose 92 MG/DL 87 MG/DL Calcium Level 8.1 MG/DL 8.2 MG/DL Sodium Level 141 MEQ/L 141 MEQ/L Potassium Level 3.1 MEQ/L 3.6 MEQ/L Chloride Level 105 MEQ/L 106 MEQ/L Carbon Dioxide Level 29.6 MEQ/L 29.0 MEQ/L Anion Gap 6 MEQ/L 6 MEQ/L Estimat Glomerular Filtration Rate 83 ML/MIN 72 ML/MIN Microbiology Date/Time Source Procedure Growth Status 01/24/18 12:47 Blood Peripheral Aerobic Blood Culture - Preliminary NO GROWTH IN 2 DAYS Resulted 01/24/18 12:47 Blood Peripheral Anaerobic Blood Culture - Preliminary Resulted 01/24/18 12:45 Blood Peripheral Aerobic Blood Culture - Preliminary NO GROWTH IN 2 DAYS Resulted 01/24/18 12:45 Blood Peripheral Anaerobic Blood Culture - Preliminary NO GROWTH IN 2 DAYS Resulted IMAGING: Head CT 01/26/18 0000 Signed Impressions: Service Date/Time: Friday, January 26, 2018 09:33 - CONCLUSION: Negative for acute process. There is no sinus disease evident. Raghavendra Jane MD FACR Renal Ultrasound 01/25/18 0000 Signed Impressions: Service Date/Time: Thursday, January 25, 2018 16:27 - CONCLUSION: Normal examination for a patient of this age. Don Baumann MD PHYSICAL EXAMINATION: GENERAL: No acute distress. Awake, alert and oriented. HEENT: Head is atraumatic. Extraocular movements grossly intact. Pupils reactive to light. No icterus. Oropharynx, moist mucosa, without lesions. NECK: Supple, without swelling. No adenopathy. LUNGS: Breath sounds are clear. CARDIOVASCULAR: Regular S1 and S2. 1-2/6 systolic ejection murmur at the left sternal border. No rubs or gallops. Chest: [id number] at the right chest appears intact. No evidence of infection. ABDOMEN: Bowel sounds present, soft, no tenderness. EXTREMITIES: No clubbing. No cyanosis. No edema. NEUROLOGIC: No gross focal findings. PSYCHIATRIC: calm, pleasant and cooperative. IMPRESSION: 1. Sepsis due to Escherichia coli arising from urinary tract infection. 2. Urinary tract infection. E. coli. 3. Ovarian cancer, status post chemotherapy. The patient receiving ongoing chemotherapy. 4. Fever secondary to sepsis. Temperature has improved. Patient is clinically stable. RECOMMENDATIONS: 1. Stop Piperacillin-Tazobactam. 2. Arrange for intravenous ceftriaxone 2 g IV every 24 hours until 02/06/2018. IV antibiotics ordered on outpatient infusion form. Outpatient lab work ordered. BMP to be faxed to me when available. Discussed with case management. Discussed with Dr. Balbuena. Okay to discharge patient from my standpoint. Sam Power MD Jan 28, 2018 10:21
--- NOTE | 2018-01-28 10:52 | HHI.FF ---
Face to Face Verification Diagnosis: (1) UTI (urinary tract infection) (2) Leukopenia due to antineoplastic chemotherapy Home Health Nursing Order: Medical education Signs/symptoms of disease process Nursing assessment with vital signs IV medication administration Instructions: patient teaching and training I have seen patient Twila Guevara on 01/28/18. My clinical findings support the need for the requested home health care services because: Infection w/ risk of complications I certify that my clinical findings support that this patient is homebound because: Need for psychosocial assistance iv antiibotics adminsitration Hugh Balbuena MD Jan 28, 2018 10:52
[2018-01-28] MEDS ORDERED: cefTRIAXone INJ 2,000 MG in SODIUM CHLORIDE 0.9% INJ 100 ML IV SCH (11:00)
[2018-01-28] MEDS: FERROUS SULFATE 325 MG (65 MG ELEMENTAL IRON) TAB PO SCH (11:02)
[2018-01-28 12:00] VITALS: BP 102/60; PULSE 62; RESP 18; TEMP 96.1; O2SAT 95
== END 2018-01-28 15:38 | disposition home health service (06) | DRG 872 ==
LOC: NEDDLT 06:03 → NEDA 09:02 → N07A 12:59
PROVIDERS: ADMIT Internal Medicine; ATTEND Internal Medicine
PROC: 30233N1 Transfusion of Nonautologous Red Blood Cells into Peripheral Vein, Percutaneous Approach (ICD-10-PCS; principal; 2018-01-26)
DX: A41.51 Sepsis due to Escherichia coli [E. coli] (principal); D69.6 Thrombocytopenia, unspecified; C56.9 Malignant neoplasm of unspecified ovary; N30.00 Acute cystitis without hematuria; R51 Headache; R63.0 Anorexia; R50.81 Fever presenting with conditions classified elsewhere; D50.8 Other iron deficiency anemias; E87.6 Hypokalemia; R62.7 Adult failure to thrive; Z98.84 Bariatric surgery status; Z92.21 Personal history of antineoplastic chemotherapy; Z90.710 Acquired absence of both cervix and uterus
CPT/HCPCS: 36430; 70450; 71046; 76775; 80048; 80053; 81001; 82728; 83540; 83550; 83605; 85007; 85014; 85018; 85025; 85027; 86850; 86900; 86901; 86902; 86920; 86922; 87040; 87077; 87081; 87086; 87186; 87205; 87804; 87880; 96365; J0696; J1650; J2405; J2543; J3480; J7030; J7040; P9016